=== PATIENT | male | born 1945 | race Caucasian/White ===

== ENCOUNTER 2018-02-27 05:11 | Emergency (ER) | payer OTHER, SELFPAY ==
[2018-02-27 05:11] VITALS: BP 181/110; PULSE 113; RESP 16; TEMP 36.5; O2SAT 95; BMI 34.6
[2018-02-27 05:26] LABS: Bedside Glucose 137 mg/dL (70-110)
--- NOTE | 2018-02-27 05:32 | CT_ITS ---
STUDY: CT BRAIN WITHOUT CONTRAST REASON FOR EXAM: Male, 72 years old. Headache for 4 days. RADIATION DOSAGE (If Supplied By Facility): CTDIvol = ( 44.99 ) mGy, DLP = ( 796.11 ) mGycm TECHNIQUE: Transaxial CT imaging of the brain was performed without administration of intravenous contrast material. Individualized dose optimization techniques were used for this CT. COMPARISON: None. FINDINGS: Normal soft tissue structures. Normal calvarium. There is a 1.2 cm extra-axial calcification arising along the inner table of the left posterior parietal calvarium, possibly representing a meningioma. There is no associated mass effect on underlying brain. There is mild cerebral atrophy with widening of the extra-axial spaces and ventricular dilatation. There are areas of decreased attenuation within the white matter tracts of the supratentorial brain, consistent with microvascular disease changes. Normal basal ganglia and thalami. Normal brainstem. Normal cerebellum. There is atherosclerotic calcification of the vertebral and cavernous carotid arteries. There is no intracranial hemorrhage. There are no findings of an acute ischemic infarction. There are polyps or retention cysts in the maxillary sinuses bilaterally as well as mild mucosal osteal thickening, consistent with chronic disease. There is no evidence for acute sinusitis. CT/Brain/Head without Contrast IMPRESSION: Chronic involutional changes of the brain. No demonstrated acute intracranial process. 1.2 cm densely calcified meningioma in the high left posterior parietal region, with no mass effect on the underlying brain. Would suggest a follow-up exam in one year to confirm stability. Electronically Signed: Zach Alcala MD at 6:55 EST , Service support ,
--- NOTE | 2018-02-27 05:34 | RAD_ITS ---
STUDY: X-RAY CHEST REASON FOR EXAM: Male, 72 years old. Shortness of breath. Dyspnea. TECHNIQUE: Frontal and lateral views of the chest. COMPARISON: 05/21/2015. FINDINGS: The lungs are clear and expanded. There is no demonstrated pleural abnormality. There is a calcification underlying the inferior aspect of the heart on AP view and also seen to extend over the anterior aspect of the heart on lateral view. This probably represents a pericardial calcification. Finding is also seen on previous exam. Normal size heart. Normal mediastinum and ruthy. Normal visualized pulmonary arteries. There is atherosclerotic calcification of the aortic arch with tortuosity. There are mild degenerative changes of the visualized thoracic spine. Normal visualized ribs, clavicles, and shoulders. There is no demonstrated abnormality of the visualized soft tissue structures of the upper abdomen. RAD/Chest PA and Lateral IMPRESSION: No evidence for acute cardiopulmonary pathology. Electronically Signed: Zach Alcala MD at 6:58 EST , Service support ,
--- NOTE | 2018-02-27 05:38 | ED.DCSUM_ITS ---
History of Present Illness Chief Complaint: Headache Informant: Patient Onset: Days - 4 Context: Sudden Onset Timing: Continuous Quality: sharp initially. now aching. Location: left temporo-parietal initially. now global. Current Severity: Severe Maximum Severity: Severe Worsened by: light, a little Relieved by: nothing Associated Symptoms: nausea, malaise. no focal neurological complaints. Narrative: States he had a sudden onset sharp left parietal headache 4 days ago that has persisted and worsened, now it feels painful all over. Very nauseated but has not vomited. No confusion or focal neurologic symptoms. Does not usually get headaches. Takes no anticoagulant or antiplatelet medications. No recent injury or trauma, no recent illnesses. Mild light sensitivity with this. Pt states he is having difficulty answering questions due to his headache. Prior similar symptoms: No - Past Medical History (1) Diabetes mellitus, type II Status: Chronic (2) Gastroesophageal reflux disease Status: Chronic (3) Hyperlipidemia Status: Chronic (4) Hypertension Status: Chronic Past Medical History - Allergies and Home Meds Allergies/Adverse Reactions: Allergies No Known Allergies Allergy (Verified 02/27/18 05:13) Primary Care Physician: Care Physician,No Primary [NON-STAFF] - Smoking Status: Never smoker Review of Systems General: Reports: Malaise. Denies: Chills, Fever, Sweats Eyes: Denies: Visual changes - bilaterally, Blurred Vision - bilaterally, Diplopia ENT: Denies: Bilateral ear pain, Rhinorrhea, Sore throat Cardiovascular: Denies: Chest pain, Palpitations Respiratory: Reports: Dyspnea. Denies: Cough, Dyspnea on exertion Gastrointestinal: Reports: Nausea. Denies: Abdominal pain, Vomiting, Diarrhea, Melena, Hematochezia Genitourinary: Reports: Frequency. Denies: Dysuria, Hematuria Musculoskeletal: Reports: Neck pain. Denies: Back pain, Swelling, Extremity Pain Skin: Denies: Rash Neurological: Reports: Headache. Denies: Weakness, Parasthesia, Numbness Allergy: Denies: Swelling of the mouth, Swelling of the tongue Physical Exam Vital Signs/Narrative: Vital Signs Temp Pulse Resp BP Pulse Ox 02/27/18 05:11 97.7 F L 113 H 16 181/110 H 95 Inital Vital Signs reviewed: Yes General: Well nourished, Well developed, - - well-appearing, nad Head: Normocephalic, Atraumatic Eyes: Perrl, EOMI, - - mild photophobia ENT: Moist mucous membranes, No rhinorrhea Neck: Supple, Nontender, No lymphadenopathy Cardiovascular: Regular rate, Regular rhythm, No murmurs, Tachycardia - mild Respiratory: No distress, CTA bilaterally, Chest nontender Abdomen: Soft, Nontender, Nondistended, Normal bowel sounds Back: Nontender, Normal Inspection. Negative for: Spinal tenderness Extremities: Nontender, No edema Skin: Normal color, No rash Neurological: Alert, Oriented x3, Cranial nerves II-XII grossly intact, Normal Strength, Normal Sensation, Normal DTR Psychological: Normal affect Diagnostic/Tx/Re-eval Laboratory Tests 02/27/18 02/27/18 02/27/18 Range/Units 05:20 05:15 05:15 WBC 7.4 (4.4-11.0) K/mm3 RBC 4.65 (4.6-6.2) M/mm3 Hgb 14.2 (13.0-16.5) g/dl Hct 43.5 (40-54) % MCV 93.5 (80-94) fL MCH 30.5 (27.0-32.0) pg MCHC 32.6 (32-36) g/gl RDW 14.4 (11.6-14.6) % RDW Differential 49.1 H (35.1-43.9) fl Plt Count 237 (150-450) K/mm3 MPV 11.1 (6.2-12.0) fl Immature Gran % (Auto) 0.400 (0.0-0.9) % Neut % (Auto) 66.8 (47-70) % Lymph % (Auto) 14.8 L (19-41) % [place] % (Auto) 11.4 H (0-10) % Eos % (Auto) 5.8 H (0-5) % Baso % (Auto) 0.8 (0-1) % Absolute Neuts (auto) 4.9 (2.0-7.7) X10^3/uL Absolute Lymphs (auto) 1.09 (0.83-4.51) X10^3/ul Total Counted Not Reportable Sodium 144 (136-145) mmol/L Potassium 4.1 (3.5-5.1) mmol/L Chloride 109 H (98-107) mmol/L Carbon Dioxide 23.0 (21.0-32.0) mmol/L Anion Gap 12 (5-15) BUN 20 H (7-18) mg/dL Creatinine 1.45 H (0.70-1.30) mg/dL Estim Creat Clear Calc 49.77 ml/min Est GFR (MDRD) Af Amer 62 (>60) mL/min Est GFR (MDRD) Non-Af 51 L (>60) mL/min BUN/Creatinine Ratio 13.8 (10-20) RATIO Glucose 144 H (74-106) mg/dL Calcium 8.9 (8.5-10.1) mg/dL Troponin I < 0.015 (<0.045) ng/mL POC Glucose 137 H (70-110) mg/dL Clinical Impression(s) from Imaging Studies Brain CT 02/27/18 05:32 IMPRESSION: Chronic involutional changes of the brain. No demonstrated acute intracranial process. 1.2 cm densely calcified meningioma in the high left posterior parietal region, with no mass effect on the underlying brain. Would suggest a follow-up exam in one year to confirm stability. Electronically Signed: Zach Alcala MD at 6:55 EST , Service support , Chest X-Ray 02/27/18 05:34 IMPRESSION: No evidence for acute cardiopulmonary pathology. Electronically Signed: Zach Alcala MD at 6:58 EST , Service support , - Medical Decision Making Labs show mild renal insufficiency compared with the labs that were obtained 2 years prior, and are otherwise unremarkable. CT shows no acute hemorrhage or other acute abnormality. His blood pressure was quite high, so we treated him with labetalol in addition to a dose of Reglan for the headache/nausea. On reevaluation, his headache is much improved, still present but mild, he is still nauseated, and his blood pressure is 148/84. He is additionally given Zofran. He appears well. I think his dyspnea was experienced when his headache was more uncomfortable, I do not think he needs further workup at this time for that. On further discussion, he states he has had intermittent left-sided sharp headaches in the past, but they usually only last 3 minutes or so. This was similar when it started but it was unusual in that it persisted for the last several days. He also states that he is on lisinopril 40 mg daily for blood pressure, and used to be on amlodipine, but it was causing swelling, and it was discontinued about 6 weeks ago, and since then his bilateral lower extremity edema has resolved. He states that his blood pressure was well controlled on the combination, but since discontinuing the amlodipine, he has been having issues with high numbers but he does not remember what the systolic has been. Given his reaction to calcium channel blockers, I think it would be reasonable to place him on low- dose metoprolol and have him follow-up with his doctor. We discussed the presence of the left high parietal 1.2 cm meningioma that should be reevaluated with repeat imaging in a year or so according to radiologist's advice. It is possible this has been responsible for or related to his recurrent headaches. Advised to follow-up with his doctor, I think he is stable for discharge and he is comfortable with this plan. ED Disposition - Plan for ED Patient: Disposition: Home or Assisted Living Chief Complaint: Headache Diagnosis: Cephalgia, Accelerated hypertension, Cerebral meningioma Instructions: ED Cephalgia Unspecified Prescriptions: Atenolol [Tenormin] 25 mg PO BID #60 tab Referrals: Allen Morrison [Other] (call for follow up appt) Additional Instructions: Your CT showed a 1.2 cm densely calcified meningioma in the high left parietal area of your brain. Follow-up with your doctor for further ref errals/instructions/re-imaging.
[2018-02-27 05:42] LABS: Absolute Lymphocyte Count 1.09 X10^3/ul (0.83-4.51); Absolute Neutrophil Count 4.9 X10^3/uL (2.0-7.7); Basophil# 0.06 X10^3/uL; Basophil% 0.8 % (0-1); Eosinophil# 0.43 X10^3/uL; Eosinophils% 5.8 % (0-5); Hematocrit 43.5 % (40-54); Hemoglobin 14.2 g/dl (13.0-16.5); Lymphocyte # 1.09 X10^3/ul (4.0); Lymphocyte % 14.8 % (19-41); Mean Corp Hgb Conc 32.6 g/gl (32-36); Mean Corpuscular Hgb 30.5 pg (27.0-32.0); Mean Corpuscular Volume 93.5 fL (80-94); Mean Platelet Vol. 11.1 fl (6.2-12.0); Monocyte# 0.84 X10^3/uL; Monocyte% 11.4 % (0-10); Neutrophil # 4.92 X10^3/uL (2.7-7.7); Neutrophil % 66.8 % (47-70); Platelet Count 237 K/mm3 (150-450); RBC Distribution Width CV 14.4 % (11.6-14.6); RBC Distribution Width SD 49.1 fl (35.1-43.9); Red Blood Count 4.65 M/mm3 (4.6-6.2); White Blood Count 7.4 K/mm3 (4.4-11.0)
[2018-02-27 05:43] LABS: POSITIVE COUNT NO; POSITIVE DIFFERENTIAL NO; POSITIVE MORPHOLOGY NO
[2018-02-27 05:52] LABS: Anion Gap 12 (5-15); BUN 20 mg/dL (7-18); BUN/Creat Ratio 13.8 RATIO (10-20); Calcium,Total 8.9 mg/dL (8.5-10.1); Chloride 109 mmol/L (98-107); Creatinine, Serum 1.45 mg/dL (0.70-1.30); EST Glomerular Filtration Rate 51 mL/min (>60); Est Glom Filt Rate - Afr Amer 62 mL/min (>60); Estimated Creatinine Clearance 49.77 ml/min; Glucose 144 mg/dL (74-106); Potassium 4.1 mmol/L (3.5-5.1); Sodium Level 144 mmol/L (136-145)
[2018-02-27] MEDS: Labetalol 20 MG/4 ML Vial 10 MG IV (06:21)
[2018-02-27] MEDS: Metoclopramide 10 MG/2 ML Vial 5 MG IV (06:21)
[2018-02-27 06:38] LABS: Bacteria 0 SEEN /hpf (None Seen); Mucous, Urine 0 SEEN /hpf (<or=2+); Red Blood Cells-Urine 0 SEEN /hpf (0-5); Squamous Epithelial Cells - UA 0 SEEN /hpf (0-5); White Blood Cells 0 SEEN /hpf (0-5)
[2018-02-27 06:59] VITALS: BP 148/84; PULSE 89; RESP 20; O2SAT 93
--- NOTE | 2018-02-27 07:00 | NURSING ---
physician notified of pt having headache and nausea that is mild. also notified of pt feeling slightly btter with a better bp.
[2018-02-27] MEDS: Ondansetron 4 MG/2 ML Vial IV (07:05)
[2018-02-27 07:17] LABS: Color, Urine Yellow (Yellow); Glucose, Dipstick Normal (Normal); Ketone-Dipstick Negative (Negative); Leukocyte Esterase-Dipstick Negative /ul (Negative); Nitrite-Dipstick Negative (Negative); Occult Blood-Urine Negative /ul (Negative); Protein-Dipstick Negative (Negative); Specific Gravity, Urine 1.015 (1.002-1.030); Urine Bilirubin Dipstick Negative (Negative); Urine Clarity Clear (Clear); Urine Urobilinogen Normal (Normal)
[2018-02-27 07:59] VITALS: BP 146/81; PULSE 92; RESP 20; O2SAT 93
--- OUTSIDE RECORDS SUMMARY | 2018-04-22 03:44 | XMS RPT_ITS ---
:1945 Author Organization OHIP Care Team Providers Name Role Phone Allen Morrison Attending Unavailable Allen Morrison Referring Unavailable Allen Morrison Primary Care Unavailable Elenita Guerin Attending Unavailable Allen Morrison Referring Unavailable Allen Morrison Primary Care Unavailable Elenita Guerin Attending Unavailable Allen Morrison Referring Unavailable Allen Morrison Primary Care Unavailable ODESSA CUELLAR Attending Unavailable Allen Morrison Primary Care Unavailable PROBLEMS PROBLEMS DATE TYPE CONDITION / CODE ATTENDING STATUS SOURCE 10/17/2017 Admitting Hyperlipidemia, Truong Elenita [employer] Diagnosis unspecified / [facility] E78.5(ICD-10) Repository 10/17/2017 Admitting Anemia, unspecified Elenita Guerin [employer] Diagnosis / D64.9(ICD-10) [facility] Repository 10/17/2017 Admitting Hypothyroidism, Elenita Guerin [employer] Diagnosis unspecified / [facility] E03.9(ICD-10) Repository 10/17/2017 Admitting Type 2 diabetes Elenita Guerin [employer] Diagnosis mellitus without [facility] complications / Repository E11.9(ICD-10) 09/16/2017 Admitting Pain in right knee Elenita Guerin [employer] Diagnosis / M25.561(ICD-10) [facility] Repository 09/16/2017 Admitting Oth disrd of bone Elenita Guerin [employer] Diagnosis density and [facility] structure, Repository unspecified site / M85.80(ICD-10) 04/04/2017 Admitting Type 2 diabetes Allen Morrison [employer] Diagnosis mellitus with other System specified Repository complication / E11.69(ICD-10) 04/04/2017 Admitting Essential (primary) Allen Morrison [employer] Diagnosis hypertension / System I10(ICD-10) Repository 04/04/2017 Admitting Other malaise / Allen Morrison [employer] Diagnosis R53.81(ICD-10) System Repository 04/04/2017 Admitting Benign prostatic Allen Morrison [employer] Diagnosis hyperplasia without System lower urinry tract Repository symp / N40.0(ICD-10) PROCEDURES PROCEDURES No Procedure Records FoundRESULTS RESULTS EMERGENCY DEPARTMENT Observed: 02/27/2018 Status: F Source: [place] SUMMARY 7:27 AM [facility] REPOSITORY [facility] Medical Records Department [address] [place] [address] Emergency Department Summary 02/27/18 0534 MR#: [id number] Acct: [id number] Name: ELENITA MARCANO Rep #: [id number] : 1945 72 From: Odessa Cuellar MD PCP: Allen Morrison Status: REG ER ADDENDUM by ODESSA CUELLAR MD on 02/27/18 at 0727 Urinalysis normal. 02/27/18 0727 Date Odessa Cuellar MD cc: Allen Morrison * Signed History of Present Illness Chief Complaint: Headache Informant: Patient Onset: Days - 4 Context: Sudden Onset Timing: Continuous Quality: sharp initially. now aching. Location: left temporo-parietal initially. now global. Current Severity: Severe Maximum Severity: Severe Worsened by: light, a little Relieved by: nothing Associated Symptoms: nausea, malaise. no focal neurological complaints. Narrative: States he had a sudden onset sharp left parietal headache 4 days ago that has persisted and worsened, now it feels painful all over. Very nauseated but has not vomited. No confusion or focal neurologic symptoms. Does not usually get headaches. Takes no anticoagulant or antiplatelet medications. No recent injury or trauma, no recent illnesses. Mild light sensitivity with this. Pt states he is having difficulty answering questions due to his headache. Prior similar symptoms: No - Past Medical History (1) Diabetes mellitus, type II Status: Chronic (2) Gastroesophageal reflux disease Status: Chronic (3) Hyperlipidemia Status: Chronic (4) Hypertension Status: Chronic Past Medical History - Allergies and Home Meds Allergies/Adverse Reactions: Allergies No Known Allergies Allergy (Verified 02/27/18 05:13) Primary Care Physician: Care Physician,No Primary [NON-STAFF] - Smoking Status: Never smoker Review of Systems General: Reports: Malaise. Denies: Chills, Fever, Sweats Eyes: Denies: Visual changes - bilaterally, Blurred Vision - bilaterally, Diplopia ENT: Denies: Bilateral ear pain, Rhinorrhea, Sore throat Cardiovascular: Denies: Chest pain, Palpitations Respiratory: Reports: Dyspnea. Denies: Cough, Dyspnea on exertion Gastrointestinal: Reports: Nausea. Denies: Abdominal pain, Vomiting, Diarrhea, Melena, Hematochezia Genitourinary: Reports: Frequency. Denies: Dysuria, Hematuria Musculoskeletal: Reports: Neck pain. Denies: Back pain, Swelling, Extremity Pain Skin: Denies: Rash Neurological: Reports: Headache. Denies: Weakness, Parasthesia, Numbness Allergy: Denies: Swelling of the mouth, Swelling of the tongue Physical Exam Vital Signs/Narrative: Vital Signs 02/27/18 05:11 97.7 F L 113 H 16 181/110 H 95 Inital Vital Signs reviewed: Yes General: Well nourished, Well developed, - - well-appearing, nad Head: Normocephalic, Atraumatic Eyes: Perrl, EOMI, - - mild photophobia ENT: Moist mucous membranes, No rhinorrhea Neck: Supple, Nontender, No lymphadenopathy Cardiovascular: Regular rate, Regular rhythm, No murmurs, Tachycardia - mild Respiratory: No distress, CTA bilaterally, Chest nontender Abdomen: Soft, Nontender, Nondistended, Normal bowel sounds Back: Nontender, Normal Inspection. Negative for: Spinal tenderness Extremities: Nontender, No edema Skin: Normal color, No rash Neurological: Alert, Oriented x3, Cranial nerves II-XII grossly intact, Normal Strength, Normal Sensation, Normal DTR Psychological: Normal affect Diagnostic/Tx/Re-eval Laboratory Tests WBC 7.4 (4.4-11.0) K/mm3 RBC 4.65 (4.6-6.2) M/mm3 Hgb 14.2 (13.0-16.5) g/dl Hct 43.5 (40-54) % Clinical Impression(s) from Imaging Studies Brain CT 02/27/18 05:32 IMPRESSION: Chronic involutional changes of the brain. No demonstrated acute intracranial process. 1.2 cm densely calcified meningioma in the high left posterior parietal region, with no mass effect on the underlying brain. Would suggest a follow-up exam in one year to confirm stability. Electronically Signed: Zach Alcala MD at 6:55 EST , Service support , Chest X-Ray 02/27/18 05:34 IMPRESSION: No evidence for acute cardiopulmonary pathology. Electronically Signed: Zach Alcala MD at 6:58 EST , Service support , - Medical Decision Making Labs show mild renal insufficiency compared with the labs that were obtained 2 years prior, and are otherwise unremarkable. CT shows no acute hemorrhage or other acute abnormality. His blood pressure was quite high, so we treated him with labetalol in addition to a dose of Reglan for the headache/nausea. On reevaluation, his headache is much improved, still present but mild, he is still nauseated, and his blood pressure is 148/84. He is additionally given Zofran. He appears well. I think his dyspnea was experienced when his headache was more uncomfortable, I do not think he needs further workup at this time for that. On further discussion, he states he has had intermittent left-sided sharp headaches in the past, but they usually only last 3 minutes or so. This was similar when it started but it was unusual in that it persisted for the last several days. He also states that he is on lisinopril 40 mg daily for blood pressure, and used to be on amlodipine, but it was causing swelling, and it was discontinued about 6 weeks ago, and since then his bilateral lower extremity edema has resolved. He states that his blood pressure was well controlled on the combination, but since discontinuing the amlodipine, he has been having issues with high numbers but he does not remember what the systolic has been. Given his reaction to calcium channel blockers, I think it would be reasonable to place him on low-dose metoprolol and have him follow-up with his doctor. We discussed the presence of the left high parietal 1.2 cm meningioma that should be reevaluated with repeat imaging in a year or so according to radiologist's advice. It is possible this has been responsible for or related to his recurrent headaches. Advised to follow-up with his doctor, I think he is stable for discharge and he is comfortable with this plan. ED Disposition - Plan for ED Patient: Disposition: Home or Assisted Living Chief Complaint: Headache Diagnosis: Cephalgia, Accelerated hypertension, Cerebral meningioma Instructions: ED Cephalgia Unspecified Prescriptions: Atenolol [Tenormin] 25 mg PO BID #60 tab Referrals: Allen Morrison [Other] (call for follow up appt) Additional Instructions: Your CT showed a 1.2 cm densely calcified meningioma in the high left parietal area of your brain. Follow-up with your doctor for further referrals/instructions/re-imaging. What to do if you have Problems For any increased pain, shortness of breath, bleeding, nausea or vomiting, chest pain, or any unexpected problems, contact your Primary Care Provider. Call [facility] ([phone]) or report to the closest Emergency Room. Call 911 if necessary. 02/27/18 0726 <Electronically signed by Odessa Cuellar MD> Date Odessa Cuellar MD Cosigner Signature (If Indicated): Date CC: Allen Morrison URINALYSIS, COMPLETE Collected: 02/27/2018 Status: F Source: [place] 6:20 AM [facility] REPOSITORY Order Comment: Order Date: 02/27/18 Has pt arrived? Y How was Urine Obtained? CLEAN CATCH TYPE CODE TESTS RESULT OUT OF RANGE REFERENCE UNITS LAB L400.3000 Yellow COLOR Normal Yellow LAB L400.3050 Clear Normal CLARITY Clear LAB L400.3200 Normal mg/dl Normal GLUCOSE, UR Normal LAB L400.3300 Negative mg/dL Normal BILIRUBIN URINE Negative LAB L400.3400 Negative mg/dl Normal KETONE UR Negative LAB L400.3465 1.002-1.030 Normal SP.GR. DIPSTX 1.015 LAB L400.3550 5.0 - 8.0 pH UR Normal 6.0 LAB L400.3600 Negative mg/dl PROT Normal DIPSTX Negative LAB L400.3700 Normal mg/dl Normal UROBILI Normal LAB L400.3750 Negative Normal NITRITE UR Negative LAB L400.3780 Negative /ul Normal OCCULT BLOOD-UR Negative LAB L400.3800 Negative /ul LEUK Normal ESTERASE Negative LAB L400.4050 0-5 /hpf WBC 0 Normal SEEN LAB L400.4100 0-5 /hpf 0 Normal RBC-UA SEEN LAB L400.4150 0-5 /hpf SQUAM 0 Normal EPI SEEN LAB L400.4300 None Seen /hpf 0 Normal BACTERIA SEEN LAB L400.4350 <or=2+ /hpf 0 Normal MUCUS, URINE SEEN Performed By: #### L400.0001 #### [facility] [address] [facility], [address] CHEST PA AND LATERAL Observed: 02/27/2018 Status: F Source: [place] 5:34 AM [facility] REPOSITORY [facility] Imaging Services [address] [place] [address] Chest PA and Lateral MR#: [id number] Acct: [id number] Name: ELENITA MARCANO Rep #: [id number] : 1945 M 72 From: Zach Alcala MD PCP: Allen Morrison Status: REG ER Study: Chest PA and Lateral Date of Exam: 02/27/18 Exam# [id number] Ordering Dr: Odessa Cuellar MD STUDY: X-RAY CHEST REASON FOR EXAM: Male, 72 years old. Shortness of breath. Dyspnea. TECHNIQUE: Frontal and lateral views of the chest. COMPARISON: 05/21/2015. FINDINGS: The lungs are clear and expanded. There is no demonstrated pleural abnormality. There is a calcification underlying the inferior aspect of the heart on AP view and also seen to extend over the anterior aspect of the heart on lateral view. This probably represents a pericardial calcification. Finding is also seen on previous exam. Normal size heart. Normal mediastinum and ruthy. Normal visualized pulmonary arteries. There is atherosclerotic calcification of the aortic arch with tortuosity. There are mild degenerative changes of the visualized thoracic spine. Normal visualized ribs, clavicles, and shoulders. There is no demonstrated abnormality of the visualized soft tissue structures of the upper abdomen. RAD/Chest PA and Lateral IMPRESSION: No evidence for acute cardiopulmonary pathology. Electronically Signed: Zach Alcala MD at 6:58 EST , Service support , CC: ODESSA CUELLAR MD; Allen Morrison [employer]ic: Signed BRAIN/HEAD WITHOUT Observed: 02/27/2018 Status: F Source: [place] CONTRAST 5:33 AM [facility] REPOSITORY [facility] Imaging Services [address] [place] [address] Brain/Head without Contrast MR#: [id number] Acct: [id number] Name: ELENITA MARCANO Rep #: [id number] : 1945 M 72 From: Zach Alcala MD PCP: Allen Morrison Status: REG ER Study: Brain/Head without Contrast Date of Exam: 02/27/18 Exam# [id number] Ordering Dr: Odessa Cuellar MD STUDY: CT BRAIN WITHOUT CONTRAST REASON FOR EXAM: Male, 72 years old. Headache for 4 days. RADIATION DOSAGE (If Supplied By Facility): CTDIvol = ( 44.99 ) mGy, DLP = ( 796.11 ) mGycm TECHNIQUE: Transaxial CT imaging of the brain was performed without administration of intravenous contrast material. Individualized dose optimization techniques were used for this CT. COMPARISON: None. FINDINGS: Normal soft tissue structures. Normal calvarium. There is a 1.2 cm extra-axial calcification arising along the inner table of the left posterior parietal calvarium, possibly representing a meningioma. There is no associated mass effect on underlying brain. There is mild cerebral atrophy with widening of the extra- axial spaces and ventricular dilatation. There are areas of decreased attenuation within the white matter tracts of the supratentorial brain, consistent with microvascular disease changes. Normal basal ganglia and thalami. Normal brainstem. Normal cerebellum. There is atherosclerotic calcification of the vertebral and cavernous carotid arteries. There is no intracranial hemorrhage. There are no findings of an acute ischemic infarction. There are polyps or retention cysts in the maxillary sinuses bilaterally as well as mild mucosal osteal thickening, consistent with chronic disease. There is no evidence for acute sinusitis. CT/Brain/Head without Contrast IMPRESSION: Chronic involutional changes of the brain. No demonstrated acute intracranial process. 1.2 cm densely calcified meningioma in the high left posterior parietal region, with no mass effect on the underlying brain. Would suggest a follow-up exam in one year to confirm stability. Electronically Signed: Zach Alcala MD at 6:55 EST , Service support , CC: ODESSA CUELLAR MD; Allen Morrison [employer]ic: Signed BEDSIDE GLUCOSE Collected: 02/27/2018 Status: F Source: [place] 5:20 AM [facility] REPOSITORY TYPE CODE TESTS RESULT OUT OF REFERENCE UNITS RANGE LAB L501.080 70-110 mg/dL High BEDSIDE GLU 137 Result Comment: MANAGEMENT OF PATIENT CARE PER NURSING PROTOCOL Performed By: #### L501.080 #### [facility] Point of Care [address] [place] [address] CBC W/DIFF, AUTOMATED Collected: 02/27/2018 Status: F Source: [place] 5:15 AM [facility] REPOSITORY TYPE CODE TESTS RESULT OUT OF RANGE REFERENCE UNITS LAB L100.1000 4.4-11.0 K/mm3 Normal WBC 7.4 LAB L100.1200 4.6-6.2 M/mm3 Normal RBC 4.65 LAB L100.1300 13.0-16.5 g/dl Normal HGB 14.2 LAB L100.1400 40-54 % Normal HCT 43.5 LAB L100.1500 80-94 fL Normal MCV 93.5 LAB L100.1600 27.0-32.0 pg Normal MCH 30.5 LAB L100.1700 32-36 g/gl Normal MCHC 32.6 LAB L100.1810 11.6-14.6 % Normal RDW CV 14.4 LAB L100.1820 35.1-43.9 fl High RDW SD 49.1 LAB L100.1900 150-450 K/mm3 Normal PLT 237 LAB L100.2000 6.2-12.0 fl Normal MPV 11.1 LAB L100.2100 47-70 % Normal NEUT% 66.8 LAB L100.2200 19-41 % Low LY% 14.8 LAB L100.2300 0-10 % High MONO% 11.4 LAB L100.2400 0-5 % High EO% 5.8 LAB L100.2500 0-1 % Normal BASO% 0.8 LAB L100.2550 0.0-0.9 % Normal IM GRAN % 0.400 Result Comment: IG% - Immature Granulocytes (promyelocytes, myelocytes and metamyelocytes) > 1% indicates that a LEFT SHIFT is Present. LAB L100.2620 2.0-7.7 X10 3/uL Normal Absolute Neut 4.9 LAB L100.2720 0.83-4.51 X10 3/ul Normal Absolute Lymph 1.09 Performed By: #### L100.0100 #### [facility] [address] [place], [place], [address] BASIC METABOLIC Collected: 02/27/2018 Status: F Source: [place] PROFILE (BMP) 5:15 AM [facility] REPOSITORY TYPE CODE TESTS RESULT OUT OF RANGE REFERENCE UNITS LAB L501.0100 74-106 mg/dL High GLU 144 Result Comment: Fasting Glucose result greater than or equal to 126 mg/dL suggests DIABETES MELLITUS per A.D.A. criteria. Please note revised GLUCOSE reference range effective 2017. LAB L501.1000 7-18 mg/dL High BUN 20 LAB L501.1100 0.70-1.30 mg/dL High CREAT,SERUM 1.45 Result Comment: The validity of the calculated GFR AND GFRAA in patients over 70 years has not been determined. Clinical correlation is essential. LAB L501.1110 >60 mL/min Low EST GFR 51 Result Comment: Non- GFR Calc LAB L501.1115 >60 mL/min Normal EST GFR - AA 62 Result Comment: GFR Calc LAB L501.1255 ml/min Normal Estimated CRCL 49.77 LAB L501.1300 10-20 RATIO Normal BUN/CRE 13.8 LAB L501.2200 8.5-10 mg/dL Normal .1 CA 8.9 LAB L501.5300 136-14 mmol/L Normal 5 NA 144 LAB L501.5600 3.5-5. mmol/L Normal 1 K 4.1 LAB L501.5900 98-107 mmol/L High CL 109 LAB L501.6100 21.0-3 mmol/L Normal 2.0 CO2 23.0 LAB L501.6200 5-15 Normal GAP 12 Performed By: #### L500.2500, L501.4010 #### [facility] [address] [place], [address] TROPONIN-I Collected: 02/27/2018 Status: F Source: [place] 5:15 AM [facility] REPOSITORY TYPE CODE TESTS RESULT OUT OF RANGE REFERENCE UNITS LAB L501.4010 <0.045 ng/mL Normal < 0.015 TROPONIN-I Result Comment: TROPONIN-I EXPECTED VALUES <0.045 Negative 0.045 - 0.590 Consistent with Cardiac Damage > OR = 0.600 Critical Value Not every elevated troponin is indicative of AK. These values should be used with clinical judgement in examining the patient's clinical picture for diagnosis. To establish a diagnosis of AK versus myocardial injury, there must be a demonstrated rise and/or fall in the troponin values, in addition to ischemic symptoms, EKG changes, new regional wall motion abnormality, and/or angiographical evidence. PLEASE NOTE: REFERENCE RANGES EDITED 17 Performed By: #### L500.2500, L501.4010 #### [facility] [address] [place], [address] HEMOGLOBIN A1C Collected: 10/17/2017 Status: F Source: [facility] 9:33 AM SYSTEM REPOSITORY TYPE CODE TESTS RESULT OUT OF REFERENCE UNITS RANGE LAB A1C2 4.0-5.7 % High Hemoglobin A1C 6.5 Result Comment: --HgbA1C levels may not be accurate in patients who have renal disease, received recent blood transfusions, are anemic, or who have dyshemoglobinemia. LAB EAG2 mg/dL Estimated Avg Glucose 140 Performed By: #### HA1C2, HEMDF, CMP3, LIPD2, LDLD3, TSH5 #### [facility] [address] [place] [address] HEMOGRAM W/ AUTODIFF Collected: 10/17/2017 Status: F Source: [facility] 9:33 AM SYSTEM REPOSITORY TYPE CODE TESTS RESULT OUT OF REFERENCE UNITS RANGE LAB IWBC 3.6-10.7 10*3/uL WBC Normal 7.6 LAB RBC 4.40-5.90 10*6/uL RBC Normal 4.62 LAB HGB 13.0-18.0 g/dL Hemoglobin Normal 14.6 LAB HCT 40.0-52.0 % Hematocrit Normal 43.1 LAB MCV 80.0-98.0 fL MCV Normal 93.3 LAB MCH 26.0-34.0 pg MCH Normal 31.7 LAB MCHC 32.0-36.0 % MCHC Normal 34.0 LAB RDW 11.5-14.5 % RDW Normal 14.2 LAB PLT 140-440 10*3/uL Platelet Normal 240 LAB MPV 7.4-10.4 fL MPV Normal 8.9 LAB GRAN% 40.0-80.0 % Granulocytes Normal 69.5 LAB LYMP% 20.0-40.0 % Low Lymphocytes 11.4 LAB MONO% 2.0-10.0 % Monocytes High 11.0 LAB EOS% 1.0-6.0 % Eosinophils High 6.8 LAB BAS% 0.0-2.0 % Basophils Normal 1.3 LAB ANC 1.8-7.0 10*3/uL Abs Normal Neutrophile Cnt 5.3 LAB ALC 1.0-4.3 10*3/uL Low Abs Lymph Cnt 0.9 LAB AMC 0.0-0.8 10*3/uL Abs Monocyte Normal Cnt 0.8 LAB AEC 0.0-0.5 10*3/uL Abs Eosin Cnt Normal 0.5 LAB ABC 0.0-0.2 10*3/uL Abs Baso Cnt Normal 0.1 Performed By: #### HA1C2, HEMDF, CMP3, LIPD2, LDLD3, TSH5 #### [facility] [address] [place] [address] COMP METABOLIC PANEL Collected: 10/17/2017 Status: F Source: [facility] 9:33 AM SYSTEM REPOSITORY TYPE CODE TESTS RESULT OUT OF RANGE REFERENCE UNITS LAB NA3 137-145 mmol/L Sodium Normal 141 LAB K3 3.5-5.1 mmol/L Normal Potassium 4.6 LAB CL3 98-107 mmol/L High Chloride 108 LAB CO23 22-30 mmol/L Low Carbon Dioxide 21 LAB ANIN3 NA Anion Gap 12 LAB GLUC3 70-100 mg/dL High Glucose 114 LAB BUN3 7-20 mg/dL Urea Normal Nitrogen 20 LAB CRET3 0.52-1.25 mg/dL Normal Creatinine 1.24 LAB GF3BR >60 mL/min eGFR > 60.0 LAB GF3WR >60 mL/min eGFR OTHER 57.4 Result Comment: Source- MDRD equation with creatinine calibration to IDMS(NKDEP) eGFR not recommended for drug dose adjustment LAB CA3 8.4-10.4 mg/dL Calcium Normal 9.5 LAB ALB3 3.5-5.0 g/dL Albumin, Serum Normal 4.0 LAB TP3 6.3-8.2 g/dL Total Protein Normal 6.6 LAB BILT3 0.2-1.3 mg/dL Normal Bilirubin,Total 0.6 LAB ALKP3 38-126 U/L Alkaline Normal Phosphatase 90 LAB ALT3 13-69 U/L ALT (SGPT) Normal 24 LAB AST3 15-46 U/L AST (SGOT) Normal 15 Performed By: #### HA1C2, HEMDF, CMP3, LIPD2, LDLD3, TSH5 #### [employer] [address] [place] [address] LIPID PANEL Collected: 10/17/2017 Status: F Source: [facility] 9:33 AM SYSTEM REPOSITORY TYPE CODE TESTS RESULT OUT OF REFERENCE UNITS RANGE LAB 3CHOL < 200 mg/dL Cholesterol Normal 127 LAB 3TRIG <150 mg/dL Triglyceride Normal 88 LAB HDLC 40-60 mg/dL HDL Normal Cholesterol 45 LAB LDL4 <100 mg/dL Low Density Normal Lipoprotein 64 LAB CHLHD NA Chol/HDL 3 Result Comment: Ref Range: < 3 Low Risk for CHD 3-6 Mod Risk for CHD > 6 High Risk for CHD Performed By: #### HA1C2, HEMDF, CMP3, LIPD2, LDLD3, TSH5 #### [employer] [address] [place] [address] LDL-CHOL, DIRECT Collected: 10/17/2017 Status: F Source: [facility] 9:33 AM SYSTEM REPOSITORY TYPE CODE TESTS RESULT OUT OF RANGE REFERENCE UNITS LAB 3LDLD < 100 mg/dL Normal 60 LDL-Chol,Dir ect Performed By: #### HA1C2, HEMDF, CMP3, LIPD2, LDLD3, TSH5 #### [facility] [address] [place] [address] THYROID STIM. Collected: 10/17/2017 Status: F Source: [facility] H[facility]ONE 9:33 AM SYSTEM REPOSITORY TYPE CODE TESTS RESULT OUT OF RANGE REFERENCE UNITS LAB TSH5 0.465-4.680 u[IU]/mL Normal Thyroid Stim. 3.878 Hormone Performed By: #### HA1C2, HEMDF, CMP3, LIPD2, LDLD3, TSH5 #### [facility] [address] [place] [place] [address] CR KNEE COMPLETE 4+ Observed: 09/16/2017 Status: F Source: [facility] VIEWS RIGHT 2:49 PM SYSTEM REPOSITORY Patient Name: ELENITA MARCANO Diagnostic Radiology Exam Date/Time 09/16/2017 08:42:34 EDT Exam CR Knee Complete 4+ Views Right Ordering Physician MD GUERIN LESLIE ANN Accession Number [id number] CPT4 Codes 59239 () Reason For Exam M25.561, ACUTE PAIN OF RIGHT KNEE Report CLINICAL INFORMATION: Right knee pain. AP, tunnel, lateral, and sunrise views of the right knee are provided. There are no comparison studies. FINDINGS: Mild degenerative changes are noted with medial joint space narrowing and spurring of the tibial spine. There is no evidence of fracture or dislocation. No joint effusion is seen. The bones are mildly osteopenic. IMPRESSION: 1. Mild degenerative changes. 2. No fracture or effusion. 3. Osteopenia, not unusual for patient age. Report Dictated on Workstation: [employer] Final Dictating Physician: MD SANDS JEFFREY Signed Date and Time: 09/16/2017 2:50 pm Signed by: MD SANDS JEFFREY Transcribed Date and Time: 09/16/2017 2:51 ALLERGIES ALLERGIES DATE TYPE / CODE NAME / CODE REACTION SEVERITY SOURCE 02/27/2018 [facility] [address]21(SNOMED [id number](RXNOR Repository CT) M) ENCOUNTERS ENCOUNTERS ADMIT/DISCHARGE ACCOUNT NUMBER ADMITTING ENCOUNTER LOCATION SOURCE CLASS 02/27/2018/02/28/20 [id number] Emergency Raquel [place] 18 [facility] ding:ED Repository 10/17/2017 [id number] Ambulatory [facility] Repository 09/16/2017 [id number] Ambulatory [facility] Repository 04/04/2017 [id number] [facility] Repository PAYERS PAYERS ENCOUNTER GUARANTOR PAYER SUBSCRIBER SOURCE 02/27/2018 Elenita D Primary Elenita D [facility] [id number] Insurance:[facility] GUSTAVO Solorzano [id number] [id number] [address]U[place]: Number: Repository [id number] () Date:1969-91-11[address], [place] [address]SP: 02/27/2018 Secondary NOT GIVENUNK [place] Insurance:SELF PAY [facility] Number: Effective Repository Date:2018-02-27 10/17/2017 Elenita D [facility] [id number] [facility] [id number] Repository Blake Jeanine, Number: Effective [place] [id number]: Date: () 09/16/2017 Elenita D Primary Elenita D [facility] HealthcarePolicy [id number] Repository Blake Solorzano, Number: Effective [place] [address]Kru: Date: () 04/04/2017 Elenita D Primary Elenita D [facility] hospitalOB: [facility] HealthcarePolicy [id number] Repository Blake Solorzano, Number: Effective [place] [id number]: Date: ()
== END 2018-02-27 08:04 | disposition home or self-care (01) ==
PROVIDERS: Emergency Provider Emergency Medicine; Family Provider Internal Medicine; PCP Internal Medicine
DX: R51 Headache (principal); D32.0 Benign neoplasm of cerebral meninges; I10 Essential (primary) hypertension; E11.9 Type 2 diabetes mellitus without complications; E78.5 Hyperlipidemia, unspecified; K21.9 Gastro-esophageal reflux disease without esophagitis; Z79.899 Other long term (current) drug therapy; Z79.84 Long term (current) use of oral hypoglycemic drugs; R11.0 Nausea; R06.00 Dyspnea, unspecified
CPT/HCPCS: 70450; 71046; 80048; 81001; 82962; 84484; 85025; 96374; 96375; 99283; A4216; J2405

== ENCOUNTER 2019-08-23 13:15 | Observation (INO) | payer MEDICARE, SELFPAY ==
[2019-08-23] VITALS (10 sets, daily range): BP systolic 122–154; BP diastolic 65–88; PULSE 62–78; RESP 15–20; TEMP 36.2–37; O2SAT 95–98; BMI 34.4; BMI 34.9
--- NOTE | 2019-08-23 13:30 | EKG12_ITS ---
Test Reason : Blood Pressure : / mmHG Vent. Rate : 070 BPM Atrial Rate : 070 BPM P-R Int : 190 ms QRS Dur : 072 ms QT Int : 432 ms P-R-T Axes : 003 071 -50 degrees QTc Int : 466 ms Normal sinus rhythm T wave abnormality, consider inferior ischemia Abnormal ECG Confirmed by SONAM CONTRERAS ([id number]), editor farm journal OCTAVIA GUTIERREZ ([id number]) on 08/27/2019 11:25:19 AM Referred By: Confirmed By:SONAM CONTRERAS
--- NOTE | 2019-08-23 13:31 | ED.VISSUMM ---
- ER Visit Summary Date of Service: 08/23/19 Chief Complaint: Shortness of breath History of Present Illness: The patient is a 74 M presenting with shortness of breath. He states this is worsened with exertion. It has been ongoing for the past several days but continues to worsen. He has had a cough since April which is a dry cough. He was seen by pulmonology on Tuesday and scheduled for testing later in August. He states he presented today because the shortness of breath continues to worsen. It worsens when he walks or lays flat. He has increasing lower extremity swelling. He is not on home O2. Denies fever. Denies chest pain. Denies PE/DVT risk factors. Denies other complaints. Physical Examination: Vitals are stable. Patient is afebrile. Alert no acute distress. HEENT exam is unremarkable. Neck is supple. Lungs are clear and equal bilaterally. Heart is regular rate and rhythm. Abdomen is soft nontender nondistended. Extremities symmetric edema Skin is warm and dry. No focal neurologic deficit. Remainder of exam is unremarkable. Emergency Department Course and Treatment: EKG is sinus rhythm rate of 70 with inferior lateral T wave inversion, unchanged from previous. Chest x-ray shows new small right pleural effusion with underlying atelectasis and/or infiltration. Stable linear calcification most likely pericardial in nature. CBC, chemistries are normal except BUN 25, creatinine 1.74. Troponin is negative. Patient was given Lasix IV. Discussed with the hospitalist for admission. Disposition: Admission Impression: CHF, right pleural effusion This note was generated with [employer] dictation software. It may contain incorrect words, spelling, and punctuation that were not noted in review of the chart prior to signing ED Disposition - Plan for ED Patient: Referrals: Allen Morrison MD [Primary Care Provider] -
--- NOTE | 2019-08-23 14:05 | RAD_ITS ---
STUDY: X-RAY CHEST REASON FOR EXAM: Male, 74 years old. PRODUCTIVE COUGH X 3 MONTHS, SOB X ONE MONTH -- HX COPD, EMPHYSEMA TECHNIQUE: Single AP portable view of the chest. COMPARISON: Comparison is made with prior examination dated February 27, 2018. FINDINGS: EKG electrodes are seen. There now is evidence of a small right pleural effusion with underlying basilar atelectasis and/or infiltrate. The left lung is clear. Once again, there is evidence of linear calcification along the inferior aspect of the cardiac silhouette. This may represent pericardial calcification. Normal mediastinum and ruthy. Normal visualized pulmonary arteries. There is atherosclerotic calcification of the aortic arch with tortuosity. There are degenerative changes of the visualized thoracic spine. Normal visualized ribs, clavicles, and shoulders. There is no demonstrated abnormality of the visualized soft tissue structures of the upper abdomen. RAD/Chest 1 View (Portable) IMPRESSION: New small right pleural effusion with underlying atelectasis and/or infiltration. Stable linear calcification most likely pericardial in nature. Electronically Signed: Shravan Dumas, at 14:27 EDT , Service support ,
[2019-08-23 14:08] LABS: Absolute Lymphocyte Count 0.59 X10^3/uL (0.83-4.51); Basophil# 0.05 X10^3/uL; Basophil% 0.7 % (0-1); Eosinophil# 0.23 X10^3/uL; Eosinophils% 3.4 % (0-5); Hemoglobin 13.1 g/dL (13.0-16.5); Lymphocyte # 0.59 X10^3/ul (4.0); Lymphocyte % 8.7 % (19-41); Mean Corpuscular Hgb 30.8 pg (27.0-32.0); Mean Corpuscular Volume 96.2 fL (80-94); Mean Platelet Vol. 11.5 fl (6.2-12.0); Monocyte# 0.88 X10^3/uL; NRBC Flagged by Analyzer 0 % (0-5); Neutrophil # 5.01 X10^3/uL (2.7-7.7); Neutrophil % 73.8 % (47-70); Platelet Count 251 K/mm3 (150-450); RBC Distribution Width CV 15.4 % (11.6-14.6); RBC Distribution Width SD 54.2 fl (35.1-43.9); Red Blood Count 4.26 M/mm3 (4.6-6.2); White Blood Count 6.8 K/mm3 (4.4-11.0)
--- NOTE | 2019-08-23 14:17 | NURSING ---
CHEMISTRIES HEMOLIZED
[2019-08-23 14:29] LABS: Differential Indicated SCAN CRITERIA MET
[2019-08-23 14:40] LABS: POSITIVE DIFFERENTIAL YES
[2019-08-23 14:49] LABS: Anion Gap 8 (5-15); BUN 25 mg/dL (7-18); BUN/Creat Ratio 14.4 RATIO (10-20); Calcium,Total 9.4 mg/dL (8.5-10.1); Chloride 112 mmol/L (98-107); Creatinine, Serum 1.74 mg/dL (0.70-1.30); EST Glomerular Filtration Rate 41 mL/min (>60); Est Glom Filt Rate - Afr Amer 50 mL/min (>60); Estimated Creatinine Clearance 40.27 ml/min; Glucose 108 mg/dL (74-106); Sodium Level 144 mmol/L (136-145)
--- NOTE | 2019-08-23 15:21 | NURSING ---
DR TAMICA PARSONS
--- NOTE | 2019-08-23 16:16 | NURSING ---
PCU OBS TERELETSKY CHF, PLEURAL EFFUSION
[2019-08-23] MEDS: Furosemide 40 MG/4 ML Vial IV (16:22)
--- NOTE | 2019-08-23 16:47 | HP.PCM_ITS ---
Problem List (1) CHF (congestive heart failure) Status: Acute (2) Diabetes mellitus, type II Status: Chronic (3) Gastroesophageal reflux disease Status: Chronic (4) Hyperlipidemia Status: Chronic (5) Hypertension Status: Chronic History of Present Illness Date of Admission: 08/23/19 Chief Complaint: SOB The patient is a 74 year old M with pmhx as above who presented to the ER with c/o SOB. This has been going on for about 2 months. He was seen by his PCP and had an xray showing a pleural effusion. After that he was sent to a manager of information, Dr. Lomeli and was scheduled for outpatient testing. He has not been given any medication for his breathing. About 2 weeks ago he had LE edema which has continued to worsen. He did not feel comfortably waiting any longer for treatment or work up for his SOB and came to the ER. He also has some chest pressure. He has severe LE edema and a CXR showing right pleural effusion. He denies a hx of CHF or CAD. He is SOB but has no hypoxia as he is 96% on RA. 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 [] Past Medical History Past Medical History (Chronic Problems): Chronic Problems Snoring (Chronic) Hyperlipidemia (Chronic) Diabetes mellitus, type II (Chronic) Family history of cardiovascular disease (Chronic) Hypertension (Chronic) Gastroesophageal reflux disease (Chronic) Cerumen impaction (Chronic) Allergies No Known Allergies Allergy (Verified 08/23/19 13:17) Home Medications: Ambulatory Orders Medication Instructions Recorded Pioglitazone [Actos] 30 mg PO DAILY 05/21/15 Simvastatin [Zocor] 20 mg PO QHS 05/21/15 metFORMIN HCl [Glucophage] 500 mg PO BID 05/21/15 Aspirin [Aspirin EC] 81 mg PO DAILY@0800 08/23/19 Atenolol [Tenormin] 25 mg PO BID 08/23/19 Cimetidine 400 mg PO BID 08/23/19 Furosemide [Lasix] 20 mg PO DAILY 08/23/19 Linagliptin [Tradjenta] 5 mg DAILY 08/23/19 Lisinopril 40 mg PO DAILY 08/23/19 Surgical History: herniorrhaphy - Abdominal ventral hernia with mesh Psychiatric History: No pertinent psych hx Lives: Spouse/ Significant Other Smoking Status: Never smoker Tobacco Use: Non-smoker Alcohol: Occasional Drugs: None - *Family History Maternal History Items: Heart Disease Paternal History Items: Heart Disease - Father had an AZ at 66 Sibling History Items: - - One brother who with an AZ at 48 and another brother who is from brain CA Review of Systems Constitutional: Denies: Chills, Fever, Weight Change, Fatigue HEENT: Denies: Head Aches, Sinus Congestion, Sinus Drainage Cardiovascular: Reports: Chest Pressure, Edema. Denies: Chest Pain, Palpitations Respiratory: Reports: Shortness of Breath, Shortness of breath at rest. Denies: Cough, Sputum production, Wheezing Gastrointestinal: Denies: Abdominal Pain, Nausea, Vomiting Genitourinary: Denies: Dysuria Musculoskeletal: Denies: Joint Pain, Joint Tenderness Skin: Denies: Lesions, Rash, Wounds Neurological: Denies: Numbness, Tingling, Focal weakness Psychiatric: Denies: Anxiety, Depression, Homicidal Ideations, Suicidal Ideations Hematologic/ Lymphatic: Denies: Easy Bruising, Easy Bleeding VTE Information - Inpt Only VTE Present on Admission: No VTE Mechan Device Prophylaxis: None VTE Pharm Prophylaxis ordered?: Yes Patient Problems: Active and Suspected Problems CHF (congestive heart failure) (Acute) - Physical Exam Vitals/I&O's: Vital Signs Temp Pulse Resp BP Pulse Ox 98.1 F 68 15 140/81 H 96 08/23/19 16:18 08/23/19 16:18 08/23/19 16:18 08/23/19 16:18 08/23/19 16:18 Oxygen Delivery Method Room Air Weight: 247 lb 2.211 oz Body Mass Index (BMI) 34.4 General: Alert, Oriented x3, Cooperative HEENT: Atraumatic, PERRLA, EOMI, Normocephalic Neck: Supple, No JVD, Negative Carotid Bruits Lungs: Clear to auscultation, Diminished - right side diminished Cardiovascular: Regular rate, No murmurs Abdomen: Bowel Sounds Present, Soft, Non Tender Extremities: No edema, Capillary Refill Less than 3 Seconds Skin: No rashes, No breakdown Musculoskeletal: No Tenderness to Palpation of Joints or Extremities Neurological: Cranial nerves II-XII grossly intact Psych/Mental Status: Normal Affect, Appropriate Laboratory Results 08/23/19 13:50: WBC 6.8, RBC 4.26 L, Hgb 13.1, Hct 41.0, MCV 96.2 H, MCH 30.8, MCHC 32.0, RDW Std Deviation 54.2 H, RDW Coeff of Ena 15.4 H, Plt Count 251, MPV 11.5, Immature Gran % (Auto) 0.400, Neut % (Auto) 73.8 H, Lymph % (Auto) 8.7 L, [place] % (Auto) 13.0 H, Eos % (Auto) 3.4, Baso % (Auto) 0.7, Absolute Neuts (auto) 5.0, Absolute Lymphs (auto) 0.59 L, Nucleated RBC % 0 08/23/19 13:50: Sodium Cancelled, Potassium Cancelled, Chloride Cancelled, Carbon Dioxide Cancelled, Anion Gap Cancelled, BUN Cancelled, Creatinine Cancelled, Estim Creat Clear Calc Cancelled, Est GFR (MDRD) Af Amer Cancelled, Est GFR (MDRD) Non-Af Cancelled, BUN/Creatinine Ratio Cancelled, Glucose Cancelled, Calcium Cancelled, Troponin I Cancelled 08/23/19 13:50: B-Natriuretic Peptide Pending 08/23/19 14:25: Sodium 144, Potassium 4.0, Chloride 112 H, Carbon Dioxide 24.0, Anion Gap 8, BUN 25 H, Creatinine 1.74 H, Estim Creat Clear Calc 40.27, Est GFR (MDRD) Af Amer 50 L, Est GFR (MDRD) Non-Af 41 L, BUN/Creatinine Ratio 14.4, Glucose 108 H, Calcium 9.4, Troponin I < 0.015 Assessment/Plan All Active Problems CHF (congestive heart failure) (Acute) Chest tightness (Acute) Sinus tachycardia (Acute) SOB (shortness of breath) (Acute) TMJ arthralgia (Acute) Nausea and vomiting in adult (Acute) 1. Acute CHF - no prior. IV lasix. MODESTO wrap legs, Na+ and fluid restriction, daily weights, I/Os. Obtain Echo. Trop neg. BNP pending. Right pleural effusion. Thoracentesis in AM. Pulm consult. CT chest no contrast post thoracentesis. EKG with some T wave flattening, SR. 2. Suspect CKDIII - trend BMP. 3. HTN - continue home meds 4. Dmt2 - hold orals. SSI. 5. HLD - continue Statin DVT ppx: heparin This patient was seen by Omar williamson PA-C under the supervision of Dr. Case.
[2019-08-23 17:51] LABS: BNP,B-Type NATRIURETIC PEPTIDE 289.5 pg/mL (0-100)
--- NOTE | 2019-08-23 18:13 | ECHOCS_ITS ---
Reason For Study: DYSPNEA Procedure This was a 2D Doppler, Color Flow transthoracic echocardiogram. The exam was of poor technical quality due to suboptimal acoustic windows. Contrast injection was performed. Exam performed portable in patient room. Left Ventricle Normal size and thickness. The estimated ejection fraction is 65 %. Stage 2 diastolic dysfunction. No regional wall motion abnormalities noted. Right Ventricle Mildly dilated right ventricle. Normal systolic function. Atria Normal left atrium. Normal right atrium. Normal atrial septum. Mitral Valve The mitral valve is structurally normal. No prolapse or stenosis seen. Tricuspid Valve Normal tricuspid valve. Trivial tricuspid valve insufficiency. Right ventricular systolic pressure estimated to be 22 mmHg. Aortic Valve Normal aortic valve. Trisinus/trileaflet aortic valve. Pulmonic Valve Normal pulmonic valve. Great Vessels Normal aortic root. Normal arch. The inferior vena cava is dilated. No collapse of the inferior vena cava. Pericardium/Pleural No pericardial effusion. Medication Diluted definity 5.0ml given slow IV push to enhance endocardial definition. MMode/2D Measurements & Calculations LVIDd: 4.8 cm IVSd: 1.0 cm Ao root diam: 4.2 cm LVIDs: 3.7 cm LVPWd: 0.98 cm RVDd: 3.7 cm FS: 23.6 % LAV(MOD-bp): 77.9 ml LA A4 area: 20.9 cm2 LA dimension(2D): 5.3 cm LAV(MOD-bp) Indexed: 34.4 ml/m2 LAV(MOD-sp2): 93.3 ml LAV(MOD-sp4): 61.6 ml RA A4 area: 20.1 cm2 Time Measurements MV dec time: 0.17 sec Doppler Measurements & Calculations MV E max cali: 102.4 cm/sec Lat Peak E' Cali: 5.6 cm/sec Med Peak E' Cali: 11.8 cm/sec MV A max cali: 53.3 cm/sec E/E' lat: 18.4 E/E' med: 8.7 MV E/A: 1.9 Ao V2 max: 92.8 cm/sec LV V1 max: 81.8 cm/sec PA V2 max: 81.7 cm/sec Ao max P.4 mmHg LV V1 max P.7 mmHg TR max cali: 208.6 cm/sec TR max P.4 mmHg Interpretation Summary The estimated ejection fraction is 65 %. Stage 2 diastolic dysfunction. Mildly dilated right ventricle. Trivial tricuspid valve insufficiency. Right ventricular systolic pressure estimated to be 22 mmHg. The inferior vena cava is dilated No collapse of the inferior vena cava. Compared to echo report dated 05/22/2015, no appreciable changes noted. Ordering Physician: Carlton Case Referring Physician: IAIN VIRK Performed By: Annette Billy, BENJY, RVT
[2019-08-23 18:26] LABS: Bedside Glucose 96 mg/dL (70-110)
[2019-08-23] MEDS: Glucerna Shake 120 ML LIQUID PO (18:35)
[2019-08-23] MEDS: Atorvastatin Calcium 10 MG Tablet PO (21:47)
[2019-08-23] MEDS: Furosemide 20 MG/2 ML VIAL IV (21:47)
[2019-08-23] MEDS: Atenolol 25 MG Tablet PO (21:48)
[2019-08-23 22:05] LABS: Bedside Glucose 132 mg/dL (70-110)
[2019-08-24] VITALS (10 sets, daily range): BP systolic 117–129; BP diastolic 57–89; PULSE 67–76; RESP 16–22; TEMP 36.4–36.9; O2SAT 93–96
--- NOTE | 2019-08-24 | FLU_PTH ---
PATIENT: KINGS MARCANO LOC: [facility] U#:[id number] AGE/SX: 74/M ROOM: [facility] RE08/23/[address]: Dr. Serena Day DO : 1945 BED: 1 DIS: 08/26/2019 SPEC #: [id number] RECD: 08/24/19 18:01 STATUS: CYNTHIA JAROCHO #: [id number] ROC: 08/24/19 00:[address]: Serena Day DEPT: CYTOLOGY RECD BY: Trevor Padgett ENTERED: 08/27/19 09:15 SP TYPE: Fluid OTHR DR: MD Dr. Carlton Justin DO Dr. Peter Katsaros, MD Tissues: THORACIC FLUID Procedures: Special Stain Group II Surgery Specimen Level IV Cytospin Fluid HEADER OPERATION: Ultrasound-guided right thoracentesis PRE-OP DIAGNOSIS: Right pleural effusion TISSUE SUBMITTED: Thoracentesis fluid for cytology DIAGNOSIS CYTOLOGY Right thoracentesis fluid for cytology (cytospin and cell block): Negative for malignant cells. ANTHONY:alena 08/28/19 CYTOLOGY STUDY Slides are reviewed. CYTOLOGY GROSS Received is 100 ml of red cloudy fluid labeled with the patient's name and and designated per the requisition as thoracentesis. Submitted for cytology preparation including cell block. / alena 08/27/19 TC:5 CPT: 88561, 85580 ADDENDUM ADDENDUM ADDENDUM ADDENDUM ADDENDUM ADDENDUM ADDENDUM 08/30/2019 11:12 ADDENDUM 08/30/2019 11:12 ADDENDUM 08/30/2019 11:12 ADDENDUM 08/30/2019 11:12 ADDENDUM 08/30/2019 11:12 FLOW CYTOMETRY REPORT FROM [facility] FLOW INTERPRETATION: No immunophenotypic evidence of a monoclonal B-cell or aberrant Tcell population detected. Please see complete report in e-chart or EMR for further details
--- NOTE | 2019-08-24 00:18 | NURSING ---
This nurse received report from Yue Lawrence RN at this time. This nurse to take over care of this patient.
[2019-08-24] MEDS: 0.9% Saline Lock 10 ML Syringe IV ×2 (05:40→21:33)
[2019-08-24 06:46] LABS: Anion Gap 8 (5-15); BUN 23 mg/dL (7-18); BUN/Creat Ratio 14.2 RATIO (10-20); Chloride 104 mmol/L (98-107); Creatinine, Serum 1.62 mg/dL (0.70-1.30); EST Glomerular Filtration Rate 45 mL/min (>60); Est Glom Filt Rate - Afr Amer 54 mL/min (>60); Estimated Creatinine Clearance 41.93 ml/min; Glucose 109 mg/dL (74-106); Potassium 3.6 mmol/L (3.5-5.1); Sodium Level 139 mmol/L (136-145)
[2019-08-24 06:55] LABS: Bedside Glucose 113 mg/dL (70-110)
[2019-08-24 06:59] LABS: ALB/GLOB Ratio 0.8 RATIO (0.9-2.4); Globulin 3.8 g/dL (2.2-4.2); LDH 205 U/L (87-241)
--- NOTE | 2019-08-24 07:59 | RAD_ITS ---
STUDY: X-RAY CHEST REASON FOR EXAM: Male, 74 years old. POST THORACENTESIS TECHNIQUE: AP inspiration and expiration views. COMPARISON: Comparison is made with prior examination dated August 23, 2019. FINDINGS: The patient is status post right thoracentesis. There is no evidence of pneumothorax. Residual pleural-parenchymal changes persist at the right lung base. The left lung is unchanged. Cardiomegaly and rim-like calcification most likely pericardial calcification. RAD/Chest Insp/Exp 2 View IMPRESSION: Status post right thoracentesis. There is no evidence of pneumothorax. Mild residual pleural parenchymal changes are seen. Electronically Signed: Shravan Dumas, at 13:07 EDT , Service support ,
[2019-08-24 08:17] LABS: International Normalized Ratio 1.2; Prothrombin Time (Protime)PT. 14.9 SECONDS (11.7-14.9)
[2019-08-24 08:18] LABS: Partial Thromboplast Time 32.8 Seconds (24.1-36.2)
--- NOTE | 2019-08-24 08:48 | PCM.CONS.PUL ---
Problem List (1) Pleural effusion Status: Acute (2) CHF (congestive heart failure) Status: Acute Qualifiers: Heart failure type: unspecified Heart failure chronicity: unspecified Qualified Code(s): I50.9 - Heart failure, unspecified (3) Hyperlipidemia Status: Chronic (4) Diabetes mellitus, type II Status: Chronic (5) Family history of cardiovascular disease Status: Chronic (6) Hypertension Status: Chronic (7) Gastroesophageal reflux disease Status: Chronic Reason for Consult Date of Consultation: 08/24/19 Reason for Consultation: Pleural effusion History of Present Illness: The patient is a 74 year old M with past medical history listed below, who presented to [facility] on 08/23/2019 secondary to progressive shortness of breath with exertion. Patient stated that he started to have symptoms 3 to 4 days ago that have been progressive. Patient has had a cough since April that is described as a dry cough. Patient had been seen by pulmonology recently and had scheduled testing for later in August, but he came to the ER secondary to rapid worsening. Patient does state that this is worse with lying flat or exertion. Patient is also had some increased lower extremity swelling. Patient is not on oxygen at baseline. Patient denies any sick contacts, chest pain, palomo pain, nausea, vomiting or diarrhea. In the ER, patient was noted to have an EKG with sinus rhythm. Patient had a new right pleural effusion noted on chest x-ray. Chemistries showed a worsening in creatinine to 1.74, but CBC was normal. Patient was given some IV Lasix and admitted to the floor for further evaluation. Overnight, patient has received diuretic therapy. Patient states that he has been urinating frequently and overall feels subjectively improved compared to previous. Patient denies any current chest pain, abdominal pain, nausea or vomiting. Patient does not report a history of pleural effusion in the past. Patient has never been a smoker, but does drink 2-3 drinks per week. Patient denies any illicit drug use or trauma. 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 Patient states that many of his colleagues have from mesothelioma. Patient is unclear on the last time he was evaluated with imaging. Patient does not believe he is ever had pulmonary function test. Patient does report that he is compliant with his Lasix therapy. 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 Patient believes he was exposed to agent orange, but is not followed at the [facility] for this finding. Review of systems otherwise negative from a constitutional, HEENT, respiratory, cardiovascular, GI, genitourinary, musculoskeletal, skin, neurologic, psychiatric and hematologic system unless stated above. Past Medical History Past Medical History (Chronic Problems): Chronic Problems Snoring (Chronic) Hyperlipidemia (Chronic) Diabetes mellitus, type II (Chronic) Family history of cardiovascular disease (Chronic) Hypertension (Chronic) Gastroesophageal reflux disease (Chronic) Cerumen impaction (Chronic) Allergies No Known Allergies Allergy (Verified 08/23/19 13:17) Home Medications: Ambulatory Orders Medication Instructions Recorded Pioglitazone [Actos] 30 mg PO DAILY 05/21/15 Simvastatin [Zocor] 20 mg PO QHS 05/21/15 metFORMIN HCl [Glucophage] 500 mg PO BID 05/21/15 Aspirin [Aspirin EC] 81 mg PO DAILY@0800 08/23/19 Atenolol [Tenormin] 25 mg PO BID 08/23/19 Cimetidine 400 mg PO BID 08/23/19 Furosemide [Lasix] 20 mg PO DAILY 08/23/19 Linagliptin [Tradjenta] 5 mg DAILY 08/23/19 Lisinopril 40 mg PO DAILY 08/23/19 Surgical History: herniorrhaphy - Abdominal ventral hernia with mesh Psychiatric History: No pertinent psych hx Lives: Spouse/ Significant Other Smoking Status: Never smoker Tobacco Use: Non-smoker Alcohol: Occasional Drugs: None - *Family History Maternal History Items: Heart Disease Paternal History Items: Heart Disease - Father had an MT at 66 Sibling History Items: - - One brother who with an MT at 48 and another brother who is from brain CA Review of Systems Comment: See HPI Patient Problems: Active and Suspected Problems CHF (congestive heart failure) (Acute) Pleural effusion (Acute) Objective: Chest x-ray was personally reviewed and shows a moderate to large right-sided pleural effusion. Patient does not have any recent echocardiograms or pulmonary function tests available for review. - Physical Exam Vitals/I&O's: Vital Signs Temp Pulse Resp BP Pulse Ox 36.9 C 69 20 H 126/72 H 94 08/24/19 04:00 08/24/19 04:00 08/24/19 04:00 08/24/19 04:00 08/24/19 04:00 Oxygen Delivery Method Room Air Weight: 109.5 kg Body Mass Index (BMI) 34.9 Intake and Output for Last 24 Hours 08/22/19 08/23/19 08/24/19 23:59 23:59 23:59 Intake Total 240 / 240 100 / 100 Output Total 2825 / 2825 2300 / 2300 Balance -2585 / -2585 -2200 / -2200 General: Alert, Oriented x3, Cooperative, No apparent distress, - - Obese. Speaking in full sentences. HEENT: Atraumatic, PERRLA, EOMI, Normocephalic, - - No scleral icterus or injection noted Oral: Moist Mucosa, No Gingival or Mucosal Lesions/ Ulcerations Neck: Supple, No Nodes, Trachea Midline, JVD, Right Lungs: No rhonchi, No wheeze, No rales, Diminished, - - Dullness to percussion at the right base Cardiovascular: Regular rate, Regular Rhythm, Normal S1, Normal S2, No murmurs, No rub noted, No Gallop Abdomen: Bowel Sounds Present, Soft, Non Tender, Non-Distended, Obese Extremities: No clubbing, No cyanosis, Capillary Refill Less than 3 Seconds, Edema - 3-4+ lower extremity edema Skin: - - Venous stasis changes of the lower extremities Musculoskeletal: No Tenderness to Palpation of Joints or Extremities Lymphatic: No Cervical, Supraclavicular, or Inguinal Adenopathy Neurological: Cranial nerves II-XII grossly intact, Neuro grossly intact, Motor Exam 5/5 strength throughout Psych/Mental Status: Alert and oriented to time, place, person, mood and affect Laboratory Results 08/23/19 13:50: WBC 6.8, RBC 4.26 L, Hgb 13.1, Hct 41.0, MCV 96.2 H, MCH 30.8, MCHC 32.0, RDW Std Deviation 54.2 H, RDW Coeff of Ena 15.4 H, Plt Count 251, MPV 11.5, Immature Gran % (Auto) 0.400, Neut % (Auto) 73.8 H, Lymph % (Auto) 8.7 L, Carroll % (Auto) 13.0 H, Eos % (Auto) 3.4, Baso % (Auto) 0.7, Absolute Neuts (auto) 5.0, Absolute Lymphs (auto) 0.59 L, Nucleated RBC % 0 08/23/19 13:50: Sodium Cancelled, Potassium Cancelled, Chloride Cancelled, Carbon Dioxide Cancelled, Anion Gap Cancelled, BUN Cancelled, Creatinine Cancelled, Estim Creat Clear Calc Cancelled, Est GFR (MDRD) Af Amer Cancelled, Est GFR (MDRD) Non-Af Cancelled, BUN/Creatinine Ratio Cancelled, Glucose Cancelled, Calcium Cancelled, Troponin I Cancelled 08/23/19 13:50: B-Natriuretic Peptide 289.5 H 08/23/19 14:25: Sodium 144, Potassium 4.0, Chloride 112 H, Carbon Dioxide 24.0, Anion Gap 8, BUN 25 H, Creatinine 1.74 H, Estim Creat Clear Calc 40.27, Est GFR (MDRD) Af Amer 50 L, Est GFR (MDRD) Non-Af 41 L, BUN/Creatinine Ratio 14.4, Glucose 108 H, Calcium 9.4, Troponin I < 0.015 08/23/19 18:18: POC Glucose 96 08/23/19 21:44: POC Glucose 132 H 08/24/19 06:08: Lactate Dehydrogenase 205, Total Protein 7.0, Globulin 3.8, Albumin/Globulin Ratio 0.8 L 08/24/19 06:08: Sodium 139, Potassium 3.6, Chloride 104, Carbon Dioxide 27.0, Anion Gap 8, BUN 23 H, Creatinine 1.62 H, Estim Creat Clear Calc 41.93, Est GFR (MDRD) Af Amer 54 L, Est GFR (MDRD) Non-Af 45 L, BUN/Creatinine Ratio 14.2, Glucose 109 H, Calcium 9.0 08/24/19 06:08: PT 14.9, INR 1.2, APTT 32.8 08/24/19 06:38: POC Glucose 113 H Current Medications Aspirin (Ecotrin) 81 mg PO DAILY@0800 [facility] Last Admin: 08/24/19 06:56 Dose: Not Given Documented by: Atenolol (Tenormin (Beta Augustine)) 25 mg PO BID [facility] Last Admin: 08/23/19 21:48 Dose: 25 mg Documented by: Atorvastatin Calcium (Lipitor) 10 mg PO QHS [facility] Last Admin: 08/23/19 21:47 Dose: 10 mg Documented by: Dextrose (D50w Syringe) 0 gm IV X1 PRN; Protocol PRN Reason: Hypoglycemia Furosemide (Lasix) 20 mg IV Q12 [facility] Last Admin: 08/23/19 21:47 Dose: 20 mg Documented by: Glucagon () 1 mg IM .X1 PRN PRN Reason: Hypoglycemia Sodium Chloride () 500 mls @ 15 mls/hr IV PRN PRN PRN Reason: Blood Transfusion Sodium Chloride () 250 mls @ 15 mls/hr IV .[id number] PRN PRN Reason: Saline Flush Sodium Chloride () 250 mls @ 15 mls/hr IV .[id number] PRN PRN Reason: Additional IVPB Infusion Insulin Human Lispro (Humalog Kwikpen (Bkc)) 0 unit SC ACHS [facility]; Protocol Last Admin: 08/24/19 06:55 Dose: Not Given Documented by: Linagliptin (Tradjenta) 5 mg PO DAILY [facility] Lisinopril (Zestril) 40 mg PO DAILY [facility] Metformin HCl (Glucophage) 500 mg PO BIDCM [facility] Nutritional Formula (Lactose Free) (Glucerna Shake) 120 ml PO 4X/DAY [facility] Last Admin: 08/23/19 21:51 Dose: Not Given Documented by: Potassium Chloride (K-Dur) 20 meq PO BIDCM [facility] Sodium Chloride () 10 - 40 ml IV UD PRN PRN Reason: SALINE FLUSH Last Admin: 08/24/19 05:40 Dose: 10 ml Documented by: Clinical Impression(s) from Imaging Studies Chest X-Ray 08/23/19 14:05 IMPRESSION: New small right pleural effusion with underlying atelectasis and/or infiltration. Stable linear calcification most likely pericardial in nature. Electronically Signed: Shravan Dumas, at 14:27 EDT , Service support , Assessment/Plan All Active Problems CHF (congestive heart failure) (Acute) Pleural effusion (Acute) Chest tightness (Acute) Sinus tachycardia (Acute) SOB (shortness of breath) (Acute) TMJ arthralgia (Acute) Nausea and vomiting in adult (Acute) RECOMMENDATIONS: 1. Obtain repeat echocardiogram 2. Obtain diagnostic and therapeutic thoracentesis 3. Agree with empiric diuresis 4. Further recommendations following thoracentesis IMPRESSIONS: 1. New onset right pleural effusion Unclear etiology at this time. Patient has possible etiologies of both transudate and exudate physiology. Patient does have significant lower extremity edema, so congestive heart failure would be a consideration. Patient also has significant environmental exposures, so malignancy such as mesothelioma would also be a consideration. Await diagnostic/therapeutic thoracentesis prior to further evaluation. Patient may require a CT scan in the future for evaluation of pulmonary fibrosis. Patient should have a pulmonary function test as an outpatient for quantification clarification of lung function. Patient should have a walking oximetry prior to discharge. If found to have pulmonary fibrosis[facility] the only entity allowed to evaluate agent orange associated pulmonary fibrosis. 2. Suspected acute congestive heart failure Patient does have a slightly elevated BNP. Echocardiogram has been ordered. Patient has had improvement in creatinine following diuresis indicating probable overload leading to decrease Starling forces. Would continue with diuresis empirically. Patient should be taught on low-sodium diet. Consider outpatient follow-up with cardiology. 3. Suspected CKD 3/hypertension/diabetes mellitus type 2/hyperlipidemia/advanced age/obesity Complicates care, management, recovery and prognosis. Okay to continue with baseline medications from my perspective. But pressure appears to be well controlled. Inpatient E&M: 12322 Init Hosp L3
[2019-08-24] MEDS: Atenolol 25 MG Tablet PO ×2 (09:58→21:32)
[2019-08-24] MEDS: metFORMIN HCl 500 MG Tablet PO ×2 (09:58→17:30)
[2019-08-24] MEDS: LINAGLIPTIN 5 MG TABLET PO (09:59)
[2019-08-24] MEDS: Glucerna Shake 120 ML LIQUID PO ×2 (09:59→21:30)
[2019-08-24] MEDS: Lisinopril 40 MG Tablet PO (09:59)
[2019-08-24 12:56] LABS: Bedside Glucose 185 mg/dL (70-110)
--- NOTE | 2019-08-24 13:04 | PCM.PN.HOSP ---
Patient Problems: Active and Suspected Problems CHF (congestive heart failure) (Acute) Pleural effusion (Acute) Reason for Visit: SOB Subjective: SOB improved. LE edema improved with MODESTO wraps. No chest pain/pressure/tightness/heaviness. No palp. No fever/chills. Going for thora today. Vitals/I&O's: Vital Signs Temp Pulse Resp BP Pulse Ox 97.7 F L 76 16 117/57 L 95 08/24/19 09:47 08/24/19 09:47 08/24/19 09:47 08/24/19 09:47 08/24/19 09:47 Oxygen Delivery Method Room Air Weight: 241 lb 6.499 oz Body Mass Index (BMI) 34.9 Intake and Output for Last 24 Hours 08/22/19 08/23/19 08/24/19 23:59 23:59 23:59 Intake Total 240 / 240 580 / 580 Output Total 2825 / 2825 3025 / 3025 Balance -2585 / -2585 -2445 / -2445 General: Alert, Oriented x3, Cooperative HEENT: Atraumatic, PERRLA, EOMI, Normocephalic Neck: Supple, No JVD, Negative Carotid Bruits Lungs: Clear to auscultation, Diminished - right lung Cardiovascular: Regular rate, Murmur - 2/6 systolic murmur LSB Abdomen: Bowel Sounds Present, Soft, Non Tender Extremities: No edema, Capillary Refill Less than 3 Seconds Skin: No rashes, No breakdown Musculoskeletal: No Tenderness to Palpation of Joints or Extremities Neurological: Cranial nerves II-XII grossly intact Psych/Mental Status: Normal Affect, Appropriate, Alert and oriented to time, place, person, mood and affect Laboratory Results 08/23/19 13:50: WBC 6.8, RBC 4.26 L, Hgb 13.1, Hct 41.0, MCV 96.2 H, MCH 30.8, MCHC 32.0, RDW Std Deviation 54.2 H, RDW Coeff of Ena 15.4 H, Plt Count 251, MPV 11.5, Immature Gran % (Auto) 0.400, Neut % (Auto) 73.8 H, Lymph % (Auto) 8.7 L, Winston % (Auto) 13.0 H, Eos % (Auto) 3.4, Baso % (Auto) 0.7, Absolute Neuts (auto) 5.0, Absolute Lymphs (auto) 0.59 L, Nucleated RBC % 0 08/23/19 13:50: Sodium Cancelled, Potassium Cancelled, Chloride Cancelled, Carbon Dioxide Cancelled, Anion Gap Cancelled, BUN Cancelled, Creatinine Cancelled, Estim Creat Clear Calc Cancelled, Est GFR (MDRD) Af Amer Cancelled, Est GFR (MDRD) Non-Af Cancelled, BUN/Creatinine Ratio Cancelled, Glucose Cancelled, Calcium Cancelled, Troponin I Cancelled 08/23/19 13:50: B-Natriuretic Peptide 289.5 H 08/23/19 14:25: Sodium 144, Potassium 4.0, Chloride 112 H, Carbon Dioxide 24.0, Anion Gap 8, BUN 25 H, Creatinine 1.74 H, Estim Creat Clear Calc 40.27, Est GFR (MDRD) Af Amer 50 L, Est GFR (MDRD) Non-Af 41 L, BUN/Creatinine Ratio 14.4, Glucose 108 H, Calcium 9.4, Troponin I < 0.015 08/23/19 18:18: POC Glucose 96 08/23/19 21:44: POC Glucose 132 H 08/24/19 06:08: Lactate Dehydrogenase 205, Total Protein 7.0, Globulin 3.8, Albumin/Globulin Ratio 0.8 L 08/24/19 06:08: Sodium 139, Potassium 3.6, Chloride 104, Carbon Dioxide 27.0, Anion Gap 8, BUN 23 H, Creatinine 1.62 H, Estim Creat Clear Calc 41.93, Est GFR (MDRD) Af Amer 54 L, Est GFR (MDRD) Non-Af 45 L, BUN/Creatinine Ratio 14.2, Glucose 109 H, Calcium 9.0 08/24/19 06:08: PT 14.9, INR 1.2, APTT 32.8 08/24/19 06:38: POC Glucose 113 H 08/24/19 11:36: POC Glucose 185 H Current Medications Aspirin (Ecotrin) 81 mg PO DAILY@0800 [facility] Last Admin: 08/24/19 06:56 Dose: Not Given Documented by: Atenolol (Tenormin (Beta Augustine)) 25 mg PO BID [facility] Last Admin: 08/24/19 09:58 Dose: 25 mg Documented by: Atorvastatin Calcium (Lipitor) 10 mg PO QHS [facility] Last Admin: 08/23/19 21:47 Dose: 10 mg Documented by: Dextrose (D50w Syringe) 0 gm IV X1 PRN; Protocol PRN Reason: Hypoglycemia Furosemide (Lasix) 20 mg IV Q12 [facility] Last Admin: 08/23/19 21:47 Dose: 20 mg Documented by: Glucagon () 1 mg IM .X1 PRN PRN Reason: Hypoglycemia Sodium Chloride () 500 mls @ 15 mls/hr IV PRN PRN PRN Reason: Blood Transfusion Sodium Chloride () 250 mls @ 15 mls/hr IV .[id number] PRN PRN Reason: Saline Flush Sodium Chloride () 250 mls @ 15 mls/hr IV .[id number] PRN PRN Reason: Additional IVPB Infusion Insulin Human Lispro (Humalog Kwikpen (Bkc)) 0 unit SC ACHS [facility]; Protocol Last Admin: 08/24/19 11:38 Dose: Not Given Documented by: Linagliptin (Tradjenta) 5 mg PO DAILY [facility] Last Admin: 08/24/19 09:59 Dose: 5 mg Documented by: Lisinopril (Zestril) 40 mg PO DAILY [facility] Last Admin: 08/24/19 09:59 Dose: 40 mg Documented by: Metformin HCl (Glucophage) 500 mg PO BIDCM [facility] Last Admin: 08/24/19 09:58 Dose: 500 mg Documented by: Nutritional Formula (Lactose Free) (Glucerna Shake) 120 ml PO 4X/DAY [facility] Last Admin: 08/24/19 09:59 Dose: 120 ml Documented by: Potassium Chloride (K-Dur) 20 meq PO BIDCM [facility] Last Admin: 08/24/19 09:58 Dose: 20 meq Documented by: Sodium Chloride () 10 - 40 ml IV UD PRN PRN Reason: SALINE FLUSH Last Admin: 08/24/19 05:40 Dose: 10 ml Documented by: STROKE Vital Signs/Narrative: Vital Signs Temp Pulse Resp BP Pulse Ox 08/24/19 09:47 97.7 F L 76 16 117/57 L 95 Medical Necessity - Tobacco Use Smoking Status: Never smoker Tobacco Use: Non-smoker Assessment/Plan All Active Problems CHF (congestive heart failure) (Acute) Pleural effusion (Acute) Chest tightness (Acute) Sinus tachycardia (Acute) SOB (shortness of breath) (Acute) TMJ arthralgia (Acute) Nausea and vomiting in adult (Acute) 1. Acute diastolic CHF - no prior. Echo with EF 65% and stage 2 diastolic dysfunction, RVSP 22 mmHg. Thoracentesis today. Pulm following. CT chest after thora. Improving on IV lasix. 2. Suspect CKDIII - trend BMP. 3. HTN - continue home meds 4. Dmt2 - hold orals. SSI. 5. HLD - continue Statin DVT ppx: held for thora. This patient was seen by Omar williamson PA-C under the supervision of Dr. Day
[2019-08-24 13:14] LABS: Cytology, Body Fluid / CSF SEE PATHOLOGY REPORT
[2019-08-24 13:29] LABS: Body Fluid Mononuclear WBC # 0.278 10^3/uL; Body Fluid Mononuclear WBC % 97.2 %; Body Fluid Polynuclear WBC # 0.008 10^3/uL; Body Fluid Polynuclear WBC % 2.8 %; Body Fluid Total Cells Counted 0.289 10^3/ul; Red Cell Count/Body Fluid 0.008 10^6/ul; Source- Body Fluid THORACENTESIS; White Blood Count/Body Fluid 0.286 10^3/uL
[2019-08-24 13:33] LABS: Appearance/Body Fluid CLEAR; Color/Body Fluid YELLOW
[2019-08-24 13:34] LABS: Auto B Fluid Analyzer BKGD Ct COUNTS W/IN LIMITS (W/IN LIMITS)
--- NOTE | 2019-08-24 13:34 | CT_ITS ---
STUDY: CT CHEST WITHOUT CONTRAST REASON FOR EXAM: Male, 74 years old. PT STATED SHORT OF BREATH, THORACENTESIS EARLIER TODAY RADIATION DOSAGE (If Supplied By Facility): CTDIvol = ( 17.80 ) mGy, DLP = ( 628.52 ) mGycm TECHNIQUE: Transaxial imaging was performed without the administration of intravenous contrast material. Multiplanar coronal and sagittal images were reformatted. Individualized dose optimization techniques were used for this CT. COMPARISON: None. FINDINGS: Minimal residual right pleural effusion. Small left pleural effusion. Atelectasis and/or consolidation in the posterior medial segment of the right lower lobe. Minimal basilar atelectasis on the left base. Pericardial calcification. There are multiple small lymph nodes within the mediastinum, which are normal in size and morphology most compatible with reactive lymph hyperplasia. Normal hilar regions. Normal unenhanced pulmonary arteries. There is atherosclerotic calcification of the aortic arch with tortuosity and elongation of the aortic arch and descending thoracic aorta. There are multi-level degenerative changes of the thoracic spine. There is no demonstrated abnormality of the visualized upper abdomen. CT/Chest without Contrast IMPRESSION: Minimal residual right pleural effusion with infiltration and/or atelectasis in the posteromedial segment of the right lower lobe. Small left pleural effusion with left basilar atelectasis. Pericardial calcification. Electronically Signed: Shravan Dumas, at 15:15 EDT , Service support ,
[2019-08-24] MEDS: oxyCODONE 5 MG Tablet PO ×2 (13:37→20:15)
[2019-08-24 14:25] LABS: Glucose, Body Fluid 129 mg/dL (40-70); LDH,Body Fluid 101 Units/l (Not Establ.)
[2019-08-24 14:49] LABS: Body Fluid QC Type(s) BF1Q; Lymphocytes 91 %; Monocytes 6 %; Neutrophil (Segs) 3 %
[2019-08-24 17:11] LABS: Bedside Glucose 117 mg/dL (70-110)
--- NOTE | 2019-08-24 18:13 | US_ITS ---
PROCEDURE: ULTRASOUND GUIDED THORACENTESIS. DATE: August 24, 2019. INDICATION: Male, 74 years old. Right pleural effusion. PHYSICIAN: Shravan Dumas M.D. PROCEDURE: The risks, benefits, and alternatives to the procedure were explained to the patient. The specific risks of bleeding, infection, and pneumothorax requiring chest tube insertion were discussed and accepted. Written informed consent was obtained. Ultrasonographic evaluation of the right lower pleural space was carried out. An adequate pocket was identified. The patient was placed in the sitting, upright position. The overlying skin was prepped and draped in sterile fashion. 1% lidocaine was administered subcutaneously for local anesthesia. Under ultrasound guidance, a 5 Cymraes thoracentesis needle/catheter system was advanced into the right posterior lower pleural fluid collection. Approximately 1470 mL of carolee-colored fluid was drained. The catheter was removed, and a sterile dressing was applied. A specimen was collected and sent to the laboratory for analysis, as requested by the referring clinician. The patient tolerated the procedure well. A chest x-ray was ordered. US/Thoracentesis W US IMPRESSION: Ultrasound-guided right thoracentesis. Electronically Signed: Shravan Dumas, at 13:41 EDT , Service support ,
[2019-08-24] MEDS: Insulin Lispro 100 UNIT/ML INSULN.PEN SC (21:30)
[2019-08-24] MEDS: Atorvastatin Calcium 10 MG Tablet PO (21:32)
[2019-08-24] MEDS: Furosemide 20 MG/2 ML VIAL IV (21:33)
[2019-08-24 21:41] LABS: Bedside Glucose 191 mg/dL (70-110)
[2019-08-25] VITALS (11 sets, daily range): BP systolic 108–125; BP diastolic 61–77; PULSE 67–83; RESP 16–18; TEMP 36.4–37.1; O2SAT 87–97
--- NOTE | 2019-08-25 05:00 | EKG12_ITS ---
Test Reason : AM EKG Blood Pressure : / mmHG Vent. Rate : 069 BPM Atrial Rate : 069 BPM P-R Int : 184 ms QRS Dur : 076 ms QT Int : 454 ms P-R-T Axes : 016 068 -66 degrees QTc Int : 486 ms Normal sinus rhythm ST & T wave abnormality, consider inferior ischemia Prolonged QT Abnormal ECG When compared with ECG of 23-AUG-2019 13:42, MANUAL COMPARISON REQUIRED, DATA IS UNCONFIRMED Confirmed by SHELBY LOO, TIM ([id number]), managing editor ABDOUL JOSÉ ([id number]) on 08/28/2019 1:49:10 PM Referred By: ADRIANNA Confirmed By:TIM RYAN MD
[2019-08-25] MEDS: Lisinopril 40 MG Tablet PO (05:54)
[2019-08-25] MEDS: Aspirin E.C. 81 MG Tablet PO (05:54)
[2019-08-25 06:46] LABS: Bedside Glucose 130 mg/dL (70-110)
--- NOTE | 2019-08-25 07:02 | STEWCON_ITS ---
Reason For Study: CHF Stress Results Protocol: Dobutamine Stress With Definity Maximum Predicted HR: 147 bpm Target HR: 125 bpm % Maximum Predicted HR: 88 % DurationHeart Rate Stage (mm:ss) (bpm) BP Dose Comment BASELINE 73 133/87 8 CC DEFINITY TOTAL FOR TEST STAGE 1 3:00 74 116/6810.00 STAGE 2 3:00 98 118/6320.00 STAGE 3 3:00 110 115/5730.00 STAGE 4 4:44 129 121/5940.000.5 MG ATROPINE GIVEN RECOVERY 112 105/39 Stress Duration: 13:44 mm:ss Maximum Stress HR: 129 bpm Baseline Echocardiogram Findings The estimated ejection fraction is 65 %. Stress Echo Wall motion Data Resting WM Intermediate WM Stress WM Resting Wall Motion Wall Motion Stress No regional wall motion No regional wall motion abnormalities noted. abnormalities noted. EKG Data The baseline ECG displays normal sinus rhythm. The patient was titrated from 10 mcg to a maximum of 40 mcg of dobutamine during the stress. The maximum heart rate attained was 130 beats per minute. This was 88% of maximum predicted heart rate. During dobutamine infusion, there were no ST or T wave changes noted to suggest ischemia. No clinical angina was noted. Interpretation Summary The estimated ejection fraction is 65 %. Normal, adequate, dobutamine echocardiogram. Negative for ischemia by EKG and echocardiographic criteria. No anginal symptoms noted. Rare PVC noted. Patient at baseline inferior lateral downward sloping ST depression with T wave inversion which did not appreciably change at peak exercise. Final LVEF is 75%. Decrease sensitivity due to poor echo windows requiring Definity agent. Patient tolerated the procedure well. The study was technically difficult. The study was technically limited. A transesophageal echocardiogram is recommended. Ordering Physician: Serena Day Performed By: Annette Billy, TEDCS, RVT
[2019-08-25 07:07] LABS: ALB/GLOB Ratio 0.7 RATIO (0.9-2.4); AST(SGOT) 17 U/L (15-37); Alanine Aminotransfer ALT/SGPT 17 U/L (16-61); Albumin, Serum 2.9 g/dL (3.2-5.0); Alkaline Phosphatase 265 U/L (45-117); Anion Gap 10 (5-15); BUN 22 mg/dL (7-18); BUN/Creat Ratio 15.3 RATIO (10-20); Calcium,Total 8.9 mg/dL (8.5-10.1); Chloride 102 mmol/L (98-107); Cholesterol 102 mg/dL (200); Creatinine, Serum 1.44 mg/dL (0.70-1.30); EST Glomerular Filtration Rate 51 mL/min (>60); Est Glom Filt Rate - Afr Amer 62 mL/min (>60); Estimated Creatinine Clearance 47.17 ml/min; Globulin 3.9 g/dL (2.2-4.2); Glucose 132 mg/dL (74-106); High Density Lipoprotein 31 mg/dL; Magnesium 1.8 mg/dL (1.6-2.6); Phosphorus 3.1 mg/dL (2.5-4.9); Potassium 3.5 mmol/L (3.5-5.1); Protein, Total 6.8 g/dL (6.4-8.2); Sodium Level 138 mmol/L (136-145); Triglycerides 75 mg/dL; Very Low Density Lipoprotein 15 mg/dL (5-40)
--- NOTE | 2019-08-25 08:16 | PCM.PN.PUL ---
Patient Problems: Active and Suspected Problems CHF (congestive heart failure) (Acute) Pleural effusion (Acute) Subjective: Patient did well overnight. Patient did have thoracentesis yesterday with approximately 1.5 L removed and reported subjective improvement in dyspnea following the procedure. Patient does report some minor discomfort at the procedure site this morning. Objective: CT scan of the chest was personally reviewed. Significant improvement in pleural effusion. Patient does have some calcification of the pericardium and scattered areas of bronchiectasis. No significant fibrotic changes appreciated. - Physical Exam Vitals/I&O's: Vital Signs Temp Pulse Resp BP Pulse Ox 36.7 C 70 18 121/69 H 93 08/25/19 04:58 08/25/19 06:59 08/25/19 04:58 08/25/19 04:58 08/25/19 04:58 Oxygen Delivery Method [3] Room Air Oxygen Delivery Method [2] Room Air Oxygen Delivery Method [1 ( Room Air Initial Baseline)] Oxygen Delivery Method Room Air Weight: 104.4 kg Body Mass Index (BMI) 34.9 Orthostatic Vital Signs Start: 08/25/19 04:53 Freq: q24h Status: Active Protocol: Activity Type Activity Date Activity User E-Sign Co-Sign Detail Recorded Client Recorded Date Recorded By Document 08/25/19 04:53 [facility] [id number] 08/25/19 04:58 [facility] 08/25/19 04:53 Orthostatic Vitals Standing -Blood Pressure (90/60-120/80) 121/69 H -Extremity Use Right Arm -Pulse Rate (60-100) 72 Sitting -Blood Pressure (90/60-120/80) 117/69 -Extremity Use Right Arm -Pulse Rate (60-100) 71 Lying -Blood Pressure (90/60-120/80) 112/67 -Extremity Use Right Arm -Pulse Rate (60-100) 70 Intake and Output for Last 24 Hours 08/23/19 08/24/19 08/25/19 23:59 23:59 23:59 Intake Total 240 / 240 1070 / 1070 100 / 100 Output Total 2825 / 2825 5345 / 5345 875 / 875 Balance -2585 / -2585 -4275 / -4275 -775 / -775 General: Alert, Oriented x3, Cooperative, No apparent distress, - - No conversational dyspnea. Off supplemental oxygen. HEENT: Atraumatic, PERRLA, EOMI, Normocephalic, - - No scleral icterus or injection noted Oral: Moist Mucosa, No Gingival or Mucosal Lesions/ Ulcerations Neck: Supple, No JVD, No Nodes, Trachea Midline Lungs: No rhonchi, No wheeze, Diminished, Rales - Right base, but improves with coughing Cardiovascular: Regular rate, Regular Rhythm, Normal S1, Normal S2, No murmurs, No rub noted, No Gallop Abdomen: Bowel Sounds Present, Soft, Non Tender, Non-Distended, Obese Extremities: No clubbing, No cyanosis, Edema - Improved Skin: - - No change compared to previous Musculoskeletal: No Tenderness to Palpation of Joints or Extremities Lymphatic: No Cervical, Supraclavicular, or Inguinal Adenopathy Neurological: Cranial nerves II-XII grossly intact, Neuro grossly intact, Motor Exam 5/5 strength throughout Psych/Mental Status: Alert and oriented to time, place, person, mood and affect Microbiology Past 72 Hours 08/24/19 12:45 Fluid - Pleural (Lung) Gram Stain - Final Laboratory Results 08/24/19 06:08: PT 14.9, INR 1.2, APTT 32.8 08/24/19 11:36: POC Glucose 185 H 08/24/19 12:45: Fluid Glucose 129 H, Fluid Total Protein 2.0, Fluid LDH 101 08/24/19 12:45: Fluid pH Pending 08/24/19 12:45: Fluid Source THORACENTESIS, Fluid Color YELLOW, Fluid Appearance CLEAR, Fluid WBC 0.286, Fluid RBC 0.008, Fluid Tot Cell Count 0.289, Fld Polynuclear WBCs # 0.008, Fld Polynuclear WBCs % 2.8, Fluid Mononuclear WBCs 0.278, Fld Mononuclear WBCs % 97.2, Fluid Neutrophils 3, Fluid Lymphocytes 91, Fluid Monocytes 6, Fl Pathologist Comment May follow, Fluid Comment 2 SEE COMMENT 08/24/19 12:45: Miscellaneous Cytology Pending 08/24/19 17:07: POC Glucose 117 H 08/24/19 21:23: POC Glucose 191 H 08/25/19 05:50: Sodium 138, Potassium 3.5, Chloride 102, Carbon Dioxide 26.0, Anion Gap 10, BUN 22 H, Creatinine 1.44 H, Estim Creat Clear Calc 47.17, Est GFR (MDRD) Af Amer 62, Est GFR (MDRD) Non-Af 51 L, BUN/Creatinine Ratio 15.3, Glucose 132 H, Calcium 8.9, Phosphorus 3.1, Magnesium 1.8, Total Bilirubin 1.40 H, AST 17, ALT 17, Alkaline Phosphatase 265 H, Total Protein 6.8, Albumin 2.9 L, Globulin 3.9, Albumin/Globulin Ratio 0.7 L, Triglycerides 75, Cholesterol 102, LDL Cholesterol 56, VLDL Cholesterol 15, HDL Cholesterol 31 L 08/25/19 05:50: Hemoglobin A1c Pending 08/25/19 06:39: POC Glucose 130 H Current Medications Aspirin (Ecotrin) 81 mg PO DAILY@0800 [facility] Last Admin: 08/25/19 05:54 Dose: 81 mg Documented by: Atenolol (Tenormin (Beta Augustine)) 25 mg PO BID [facility] Last Admin: 08/24/19 21:32 Dose: 25 mg Documented by: Atorvastatin Calcium (Lipitor) 10 mg PO QHS [facility] Last Admin: 08/24/19 21:32 Dose: 10 mg Documented by: Dextrose (D50w Syringe) 0 gm IV X1 PRN; Protocol PRN Reason: Hypoglycemia Furosemide (Lasix) 20 mg IV Q12 [facility] Last Admin: 08/24/19 21:33 Dose: 20 mg Documented by: Glucagon () 1 mg IM .X1 PRN PRN Reason: Hypoglycemia Sodium Chloride () 500 mls @ 15 mls/hr IV PRN PRN PRN Reason: Blood Transfusion Sodium Chloride () 250 mls @ 15 mls/hr IV .[id number] PRN PRN Reason: Saline Flush Sodium Chloride () 250 mls @ 15 mls/hr IV .[id number] PRN PRN Reason: Additional IVPB Infusion Insulin Human Lispro (Humalog Kwikpen (Bkc)) 0 unit SC ACHS [facility]; Protocol Last Admin: 08/25/19 06:41 Dose: Not Given Documented by: Linagliptin (Tradjenta) 5 mg PO DAILY [facility] Last Admin: 08/24/19 09:59 Dose: 5 mg Documented by: Lisinopril (Zestril) 40 mg PO DAILY [facility] Last Admin: 08/25/19 05:54 Dose: 40 mg Documented by: Metformin HCl (Glucophage) 500 mg PO BIDCM [facility] Last Admin: 08/24/19 17:30 Dose: 500 mg Documented by: Nutritional Formula (Lactose Free) (Glucerna Shake) 120 ml PO 4X/DAY [facility] Last Admin: 08/24/19 21:30 Dose: 120 ml Documented by: Oxycodone HCl (Oxyir) 5 mg PO Q4H PRN PRN PRN Reason: Pain Score 6-10/10 Last Admin: 08/24/19 20:15 Dose: 5 mg Documented by: Potassium Chloride (K-Dur) 20 meq PO BIDCM [facility] Last Admin: 08/24/19 17:30 Dose: 20 meq Documented by: Sodium Chloride () 10 - 40 ml IV UD PRN PRN Reason: SALINE FLUSH Last Admin: 08/24/19 21:33 Dose: 10 ml Documented by: Clinical Impression(s) from Imaging Studies Chest X-Ray 08/24/19 07:59 IMPRESSION: Status post right thoracentesis. There is no evidence of pneumothorax. Mild residual pleural parenchymal changes are seen. Electronically Signed: Shravan Dumas at 13:07 EDT , Service support , Chest CT 08/24/19 13:34 IMPRESSION: Minimal residual right pleural effusion with infiltration and/or atelectasis in the posteromedial segment of the right lower lobe. Small left pleural effusion with left basilar atelectasis. Pericardial calcification. Electronically Signed: Shravan Dumas at 15:15 EDT , Service support , Thoracentesis Ultrasound 08/24/19 18:13 IMPRESSION: Ultrasound-guided right thoracentesis. Electronically Signed: Shravan Dumas at 13:41 EDT , Service support , Medical Necessity - Tobacco Use Smoking Status: Never smoker Tobacco Use: Non-smoker Assessment/Plan All Active Problems CHF (congestive heart failure) (Acute) Pleural effusion (Acute) Chest tightness (Acute) Sinus tachycardia (Acute) SOB (shortness of breath) (Acute) TMJ arthralgia (Acute) Nausea and vomiting in adult (Acute) RECOMMENDATIONS: 1. Await results of stress test 2. Cardiac optimization 3. Continue with empiric diuresis 4. Outpatient complete PFT and walking oximetry IMPRESSIONS: 1. New onset right transudative pleural effusion Clinical suspicion for CHF associated right pleural effusion. Patient did have significant 1.5 L drained from the chest. Encourage incentive spirometer. Continue aggressive diuresis and cardiac optimization. Patient should have a walking oximetry prior to discharge, but no other pulmonary work-up would be indicated as an inpatient. 2. Acute diastolic congestive heart failure Patient does have a slightly elevated BNP. Echocardiogram shows preserved ejection fraction of 65% with stage II diastolic dysfunction and a right ventricular systolic pressure of 22 mmHg. RV was mildly dilated, which may be secondary to volume overload. Patient has had improvement in creatinine following diuresis indicating probable overload leading to decrease Starling forces. Would continue with diuresis empirically. Patient should be taught on low-sodium diet. Await results of stress test 3. Suspected CKD 3/hypertension/diabetes mellitus type 2/hyperlipidemia/advanced age/obesity/occupational exposures Complicates care, management, recovery and prognosis. Okay to continue with baseline medications from my perspective. But pressure appears to be well controlled. Pericardial calcification may be secondary to asbestos exposure. No signs of mesothelioma from my perspective. Bronchiectasis noted on CT scan may be secondary to occupational exposure. Patient should have a complete PFT and walking oximetry as an outpatient. Inpatient E&M: 84772 Subs Hosp L2
[2019-08-25] MEDS: Glucerna Shake 120 ML LIQUID PO ×3 (09:46→16:24)
[2019-08-25] MEDS: Furosemide 20 MG/2 ML VIAL IV ×2 (09:46→21:18)
[2019-08-25] MEDS: Atenolol 25 MG Tablet PO ×2 (09:47→21:17)
[2019-08-25] MEDS: metFORMIN HCl 500 MG Tablet PO ×2 (09:47→16:23)
[2019-08-25] MEDS: LINAGLIPTIN 5 MG TABLET PO (09:47)
[2019-08-25] MEDS: 0.9% Saline Lock 10 ML Syringe IV ×2 (09:47→21:18)
--- NOTE | 2019-08-25 10:20 | RAD_ITS ---
STUDY: X-RAY CHEST REASON FOR EXAM: Male, 74 years old. SOB TECHNIQUE: Frontal view COMPARISON: August 24, 2019 FINDINGS: The lungs are expanded. Increasing right pleural effusion since the previous study. There is right apical pleural thickening/effusion. Normal size heart. Normal mediastinum and ruthy. Normal visualized pulmonary arteries. Normal visualized aortic arch and descending thoracic aorta. Normal visualized thoracic spine. Normal visualized ribs, clavicles, and shoulders. There is no demonstrated abnormality of the visualized soft tissue structures of the upper abdomen. RAD/Chest 1 View (Portable) IMPRESSION: Mildly increased right pleural effusion since previous study. Electronically Signed: Cecilio Vasquez DO at 14:44 EDT Tel [phone], Service support ,
--- NOTE | 2019-08-25 10:43 | CASEMGMT ---
Intro role of CM to patient and [facility] form explained re: Observation status for treatment of CHF. Explained hospitalization will be paid per? insurance policy for Outpatient billing?and condition will continue to be evaluated for Inpt necessity. Also let pt know that [facility] sends paper in the billing packet with their phone number if questions arise. Discussed Pharmacy section of [facility] form and self administered medication guideline.? Pt verbalizes understanding and does not have further questions. Form signed and placed in chart, copy to pt. SHUKRI CORRALES BSN CM
[2019-08-25] MEDS: Insulin Lispro 100 UNIT/ML INSULN.PEN SC (11:27)
[2019-08-25 11:44] LABS: Hemoglobin A1c 6.1 % (3.8-5.6)
[2019-08-25 13:36] LABS: Absolute Lymphocyte Count 0.59 X10^3/uL (0.83-4.51); Absolute Neutrophil Count 5.7 X10^3/uL (2.0-7.7); Basophil# 0.05 X10^3/uL; Basophil% 0.6 % (0-1); Eosinophil# 0.17 X10^3/uL; Eosinophils% 2.1 % (0-5); Hematocrit 39.5 % (40-54); Hemoglobin 12.4 g/dL (13.0-16.5); Lymphocyte # 0.59 X10^3/ul (4.0); Lymphocyte % 7.5 % (19-41); Mean Corp Hgb Conc 31.4 g/dL (32-36); Mean Corpuscular Volume 95.6 fL (80-94); Mean Platelet Vol. 12.4 fl (6.2-12.0); Monocyte# 1.39 X10^3/uL; Monocyte% 17.6 % (0-10); NRBC Flagged by Analyzer 0 % (0-5); Neutrophil # 5.67 X10^3/uL (2.7-7.7); Neutrophil % 71.7 % (47-70); POSITIVE DIFFERENTIAL YES; Platelet Count 231 K/mm3 (150-450); RBC Distribution Width CV 15.2 % (11.6-14.6); RBC Distribution Width SD 53.1 fl (35.1-43.9); Red Blood Count 4.13 M/mm3 (4.6-6.2); White Blood Count 7.9 K/mm3 (4.4-11.0)
[2019-08-25 13:40] LABS: Differential Indicated SCAN CRITERIA MET
--- NOTE | 2019-08-25 14:36 | PCM.PN.HOSP ---
Patient Problems: Active and Suspected Problems CHF (congestive heart failure) (Acute) Pleural effusion (Acute) Reason for Visit: SOB Subjective: Overall breathing improved. Pt complains of pain and crackling sensation at thora sight. No CP. No LH/dizziness. LE edema improved. Vitals/I&O's: Vital Signs Temp Pulse Resp BP Pulse Ox 97.6 F L 74 18 122/68 H 96 08/25/19 09:46 08/25/19 09:46 08/25/19 09:46 08/25/19 09:46 08/25/19 10:50 Oxygen Flow Rate (L/min) [ 2 AMBULATION with Oxygen] Oxygen Delivery Method [3] Room Air Oxygen Delivery Method [2] Room Air Oxygen Delivery Method [1 ( Room Air Initial Baseline)] Oxygen Delivery Method Room Air Weight: 230 lb 2.601 oz Body Mass Index (BMI) 34.9 Orthostatic Vital Signs Start: 08/25/19 04:53 Freq: q24h Status: Active Protocol: Activity Type Activity Date Activity User E-Sign Co-Sign Detail Recorded Client Recorded Date Recorded By Document 08/25/19 04:53 [facility] [id number] 08/25/19 04:58 [facility] 08/25/19 04:53 Orthostatic Vitals Standing -Blood Pressure (90/60-120/80) 121/69 H -Extremity Use Right Arm -Pulse Rate (60-100) 72 Sitting -Blood Pressure (90/60-120/80) 117/69 -Extremity Use Right Arm -Pulse Rate (60-100) 71 Lying -Blood Pressure (90/60-120/80) 112/67 -Extremity Use Right Arm -Pulse Rate (60-100) 70 Intake and Output for Last 24 Hours 08/23/19 08/24/19 08/25/19 23:59 23:59 23:59 Intake Total 240 / 240 1070 / 1070 220 / 220 Output Total 2825 / 2825 5345 / 5345 1675 / 1675 Balance -2585 / -2585 -4275 / -4275 -1455 / -1455 General: Alert, Oriented x3, Cooperative HEENT: Atraumatic, PERRLA, EOMI, Normocephalic Neck: Supple, No JVD, Negative Carotid Bruits Lungs: Clear to auscultation, Diminished - right lung Cardiovascular: Regular rate, No murmurs Abdomen: Bowel Sounds Present, Soft, Non Tender Extremities: No edema, Capillary Refill Less than 3 Seconds Skin: No rashes, No breakdown Musculoskeletal: No Tenderness to Palpation of Joints or Extremities Neurological: Cranial nerves II-XII grossly intact Psych/Mental Status: Normal Affect, Appropriate, Alert and oriented to time, place, person, mood and affect Microbiology Past 72 Hours 08/24/19 12:45 Fluid - Pleural (Lung) Gram Stain - Final 08/24/19 12:45 Fluid - Pleural (Lung) Body Fluid Culture - Preliminary No growth-Final to follow Laboratory Results 08/24/19 12:45: Fluid Neutrophils 3, Fluid Lymphocytes 91, Fluid Monocytes 6 08/24/19 17:07: POC Glucose 117 H 08/24/19 21:23: POC Glucose 191 H 08/25/19 05:05: WBC 7.9, RBC 4.13 L, Hgb 12.4 L, Hct 39.5 L, MCV 95.6 H, MCH 30.0, MCHC 31.4 L, RDW Std Deviation 53.1 H, RDW Coeff of Ena 15.2 H, Plt Count 231, MPV 12.4 H, Immature Gran % (Auto) 0.500, Neut % (Auto) 71.7 H, Lymph % (Auto) 7.5 L, [place] % (Auto) 17.6 H, Eos % (Auto) 2.1, Baso % (Auto) 0.6, Absolute Neuts (auto) 5.7, Absolute Lymphs (auto) 0.59 L, Nucleated RBC % 0 08/25/19 05:50: Sodium 138, Potassium 3.5, Chloride 102, Carbon Dioxide 26.0, Anion Gap 10, BUN 22 H, Creatinine 1.44 H, Estim Creat Clear Calc 47.17, Est GFR (MDRD) Af Amer 62, Est GFR (MDRD) Non-Af 51 L, BUN/Creatinine Ratio 15.3, Glucose 132 H, Calcium 8.9, Phosphorus 3.1, Magnesium 1.8, Total Bilirubin 1.40 H, AST 17, ALT 17, Alkaline Phosphatase 265 H, Total Protein 6.8, Albumin 2.9 L, Globulin 3.9, Albumin/Globulin Ratio 0.7 L, Triglycerides 75, Cholesterol 102, LDL Cholesterol 56, VLDL Cholesterol 15, HDL Cholesterol 31 L 08/25/19 05:50: Hemoglobin A1c 6.1 H 08/25/19 06:39: POC Glucose 130 H Current Medications Aspirin (Ecotrin) 81 mg PO DAILY@0800 [facility] Last Admin: 08/25/19 05:54 Dose: 81 mg Documented by: Atenolol (Tenormin (Beta Augustine)) 25 mg PO BID [facility] Last Admin: 08/25/19 09:47 Dose: 25 mg Documented by: Atorvastatin Calcium (Lipitor) 10 mg PO QHS [facility] Last Admin: 08/24/19 21:32 Dose: 10 mg Documented by: Dextrose (D50w Syringe) 0 gm IV X1 PRN; Protocol PRN Reason: Hypoglycemia Furosemide (Lasix) 20 mg IV Q12 [facility] Last Admin: 08/25/19 09:46 Dose: 20 mg Documented by: Glucagon () 1 mg IM .X1 PRN PRN Reason: Hypoglycemia Sodium Chloride () 500 mls @ 15 mls/hr IV PRN PRN PRN Reason: Blood Transfusion Sodium Chloride () 250 mls @ 15 mls/hr IV .[id number] PRN PRN Reason: Saline Flush Sodium Chloride () 250 mls @ 15 mls/hr IV .[id number] PRN PRN Reason: Additional IVPB Infusion Insulin Human Lispro (Humalog Kwikpen (Bkc)) 0 unit SC ACHS [facility]; Protocol Last Admin: 08/25/19 11:27 Dose: 2 units Documented by: Linagliptin (Tradjenta) 5 mg PO DAILY [facility] Last Admin: 08/25/19 09:47 Dose: 5 mg Documented by: Lisinopril (Zestril) 40 mg PO DAILY [facility] Last Admin: 08/25/19 05:54 Dose: 40 mg Documented by: Metformin HCl (Glucophage) 500 mg PO BIDCM [facility] Last Admin: 08/25/19 09:47 Dose: 500 mg Documented by: Nutritional Formula (Lactose Free) (Glucerna Shake) 120 ml PO 4X/DAY [facility] Last Admin: 08/25/19 13:45 Dose: 120 ml Documented by: Oxycodone HCl (Oxyir) 5 mg PO Q4H PRN PRN PRN Reason: Pain Score 6-10/10 Last Admin: 08/24/19 20:15 Dose: 5 mg Documented by: Potassium Chloride (K-Dur) 20 meq PO BIDCM [facility] Last Admin: 08/25/19 09:46 Dose: 20 meq Documented by: Sodium Chloride () 10 - 40 ml IV UD PRN PRN Reason: SALINE FLUSH Last Admin: 08/25/19 09:47 Dose: 10 ml Documented by: STROKE Vital Signs/Narrative: Vital Signs Pulse Ox Pulse Ox Pulse Ox 08/25/19 10:50 87 93 96 Medical Necessity - Tobacco Use Smoking Status: Never smoker Tobacco Use: Non-smoker Assessment/Plan All Active Problems CHF (congestive heart failure) (Acute) Pleural effusion (Acute) Chest tightness (Acute) Sinus tachycardia (Acute) SOB (shortness of breath) (Acute) TMJ arthralgia (Acute) Nausea and vomiting in adult (Acute) 1. Acute diastolic CHF - no prior. Echo with EF 65% and stage 2 diastolic dysfunction, RVSP 22 mmHg. Thoracentesis yesterday 1400+cc out: transudative. Pulm following. CT chest after thora per pulm shows bronchiectasis and calcifications concerning for mesothelioma. he has asbestos exposure hx. also heavy metal exposure hx. -still some hypoxia on ambulation. continue diuresis. -AM CXR pending. 2. Suspect CKDIII - trend BMP. continues to improve with diuresis. 3. HTN - continue home meds 4. Dmt2 - hold orals. SSI. a1c 6.1. 5. HLD - continue Statin DVT ppx: held for thora. DC planning: pt would like to be completely off o2 prior to going home. suspect home with no PT needs at dc. Follow up with Pulm and Cardio. This patient was seen by Omar williamson PA-C under the supervision of Dr. Day
[2019-08-25 16:25] LABS: Bedside Glucose 123 mg/dL (70-110)
[2019-08-25 16:56] LABS: Hematocrit 40.9 % (40-54)
[2019-08-25] MEDS: Atorvastatin Calcium 10 MG Tablet PO (21:17)
[2019-08-25 21:46] LABS: Bedside Glucose 124 mg/dL (70-110)
[2019-08-26 03:00] VITALS: PULSE 80
[2019-08-26 03:15] VITALS: BP 110/57; PULSE 77; RESP 18; TEMP 36.7; O2SAT 97
--- NOTE | 2019-08-26 05:25 | RAD_ITS ---
STUDY: X-RAY CHEST REASON FOR EXAM: Male, 74 years old. RIGHT PLEURAL EFFUSION, DYSPNEA TECHNIQUE: PA and lateral views of the chest. COMPARISON: 25 Aug 2019 FINDINGS: Right lower lobe small moderate layering effusion with associated atelectasis and airspace disease is present. There is no demonstrated pleural abnormality. Normal size heart. Normal mediastinum and ruthy. Normal visualized pulmonary arteries. Normal visualized aortic arch and descending thoracic aorta. Normal visualized thoracic spine. Normal visualized ribs, clavicles, and shoulders. There is no demonstrated abnormality of the visualized soft tissue structures of the upper abdomen. RAD/Chest PA and Lateral IMPRESSION: Similar appearing exam with small to moderate layering effusion and right lower lung atelectasis/airspace disease. Electronically Signed: Zay Park DO at 10:24 EDT , Service support ,
[2019-08-26 06:35] LABS: Bedside Glucose 117 mg/dL (70-110)
[2019-08-26 06:58] LABS: Hematocrit 43.6 % (40-54); Hemoglobin 13.8 g/dL (13.0-16.5); Mean Corp Hgb Conc 31.7 g/dL (32-36); Mean Corpuscular Hgb 29.6 pg (27.0-32.0); Mean Corpuscular Volume 93.4 fL (80-94); Mean Platelet Vol. 11.5 fl (6.2-12.0); Platelet Count 281 K/mm3 (150-450); RBC Distribution Width CV 14.8 % (11.6-14.6); Red Blood Count 4.67 M/mm3 (4.6-6.2); White Blood Count 9.7 K/mm3 (4.4-11.0)
[2019-08-26 07:01] VITALS: PULSE 68
[2019-08-26 07:11] LABS: Anion Gap 8 (5-15); BUN 26 mg/dL (7-18); BUN/Creat Ratio 15.2 RATIO (10-20); Calcium,Total 9.5 mg/dL (8.5-10.1); Chloride 102 mmol/L (98-107); Creatinine, Serum 1.71 mg/dL (0.70-1.30); EST Glomerular Filtration Rate 42 mL/min (>60); Est Glom Filt Rate - Afr Amer 51 mL/min (>60); Estimated Creatinine Clearance 39.73 ml/min; Glucose 122 mg/dL (74-106); Potassium 4.1 mmol/L (3.5-5.1); Sodium Level 137 mmol/L (136-145)
--- NOTE | 2019-08-26 07:40 | PN_ITS ---
Patient Problems: Active and Suspected Problems CHF (congestive heart failure) (Acute) Pleural effusion (Acute) Subjective: Patient did okay overnight. Patient has diuresed and feels subjectively improved. Patient still required supplemental oxygen on ambulation. Patient reports some dry cough, but this is improved compared to previous. - Physical Exam Vitals/I&O's: Vital Signs Temp Pulse Resp BP Pulse Ox 36.7 C 68 18 110/57 L 97 08/26/19 03:15 08/26/19 07:01 08/26/19 03:15 08/26/19 03:15 08/26/19 03:15 Oxygen Flow Rate (L/min) [ 2 AMBULATION with Oxygen] Oxygen Delivery Method [3] Room Air Oxygen Delivery Method [2] Room Air Oxygen Delivery Method [1 ( Room Air Initial Baseline)] Oxygen Delivery Method Room Air Weight: 100.7 kg Body Mass Index (BMI) 34.9 Orthostatic Vital Signs Start: 08/25/19 04:53 Freq: q24h Status: Active Protocol: Activity Type Activity Date Activity User E-Sign Co-Sign Detail Recorded Client Recorded Date Recorded By Document 08/25/19 04:53 [facility] [id number] 08/25/19 04:58 [facility] 08/25/19 04:53 Orthostatic Vitals Standing -Blood Pressure (90/60-120/80) 121/69 H -Extremity Use Right Arm -Pulse Rate (60-100) 72 Sitting -Blood Pressure (90/60-120/80) 117/69 -Extremity Use Right Arm -Pulse Rate (60-100) 71 Lying -Blood Pressure (90/60-120/80) 112/67 -Extremity Use Right Arm -Pulse Rate (60-100) 70 Intake and Output for Last 24 Hours 08/24/19 08/25/19 08/26/19 23:59 23:59 23:59 Intake Total 1070 / 1070 940 / 940 Output Total 5345 / 5345 3475 / 3475 675 / 675 Balance -4275 / -4275 -2535 / -2535 -5 / -675 General: Alert, Oriented x3, Cooperative, No apparent distress, - - Obese. Speaking in full sentences. HEENT: Atraumatic, PERRLA, EOMI, Normocephalic, - - No scleral icterus or injection noted Oral: Moist Mucosa, No Gingival or Mucosal Lesions/ Ulcerations Neck: Supple, No Nodes, Trachea Midline, JVD, Right Lungs: No rhonchi, No wheeze, Diminished, Rales - Right base, - - Symmetric expansion. Cardiovascular: Regular rate, Normal S1, Normal S2, No murmurs, No rub noted, No Gallop Abdomen: Bowel Sounds Present, Soft, Non Tender, Non-Distended Extremities: No clubbing, No cyanosis, Edema - Improving Skin: No rashes, No breakdown Musculoskeletal: No Tenderness to Palpation of Joints or Extremities Lymphatic: No Cervical, Supraclavicular, or Inguinal Adenopathy Neurological: Cranial nerves II-XII grossly intact, Neuro grossly intact, Motor Exam 5/5 strength throughout Psych/Mental Status: Alert and oriented to time, place, person, mood and affect Microbiology Past 72 Hours 08/24/19 12:45 Fluid - Pleural (Lung) Gram Stain - Final 08/24/19 12:45 Fluid - Pleural (Lung) Body Fluid Culture - Preliminary No growth-Final to follow Laboratory Results 08/25/19 05:05: WBC 7.9, RBC 4.13 L, Hgb 12.4 L, Hct 39.5 L, MCV 95.6 H, MCH 30.0, MCHC 31.4 L, RDW Std Deviation 53.1 H, RDW Coeff of Ena 15.2 H, Plt Count 231, MPV 12.4 H, Immature Gran % (Auto) 0.500, Neut % (Auto) 71.7 H, Lymph % (Auto) 7.5 L, Antelope % (Auto) 17.6 H, Eos % (Auto) 2.1, Baso % (Auto) 0.6, Absolute Neuts (auto) 5.7, Absolute Lymphs (auto) 0.59 L, Nucleated RBC % 0 08/25/19 05:50: Hemoglobin A1c 6.1 H 08/25/19 16:22: POC Glucose 123 H 08/25/19 16:50: Hgb 13.0, Hct 40.9 08/25/19 21:13: POC Glucose 124 H 08/26/19 06:17: WBC 9.7, RBC 4.67, Hgb 13.8, Hct 43.6, MCV 93.4, MCH 29.6, MCHC 31.7 L, RDW Std Deviation 51.0 H, RDW Coeff of Ena 14.8 H, Plt Count 281, MPV 11.5 08/26/19 06:17: Sodium 137, Potassium 4.1, Chloride 102, Carbon Dioxide 27.0, Anion Gap 8, BUN 26 H, Creatinine 1.71 H, Estim Creat Clear Calc 39.73, Est GFR (MDRD) Af Amer 51 L, Est GFR (MDRD) Non-Af 42 L, BUN/Creatinine Ratio 15.2, Glucose 122 H, Calcium 9.5 08/26/19 06:32: POC Glucose 117 H Current Medications Aspirin (Ecotrin) 81 mg PO DAILY@0800 [facility] Last Admin: 08/25/19 05:54 Dose: 81 mg Documented by: Atenolol (Tenormin (Beta Augustine)) 25 mg PO BID [facility] Last Admin: 08/25/19 21:17 Dose: 25 mg Documented by: Atorvastatin Calcium (Lipitor) 10 mg PO QHS [facility] Last Admin: 08/25/19 21:17 Dose: 10 mg Documented by: Dextrose (D50w Syringe) 0 gm IV X1 PRN; Protocol PRN Reason: Hypoglycemia Furosemide (Lasix) 20 mg IV Q12 [facility] Last Admin: 08/25/19 21:18 Dose: 20 mg Documented by: Glucagon () 1 mg IM .X1 PRN PRN Reason: Hypoglycemia Sodium Chloride () 500 mls @ 15 mls/hr IV PRN PRN PRN Reason: Blood Transfusion Sodium Chloride () 250 mls @ 15 mls/hr IV .[id number] PRN PRN Reason: Saline Flush Sodium Chloride () 250 mls @ 15 mls/hr IV .[id number] PRN PRN Reason: Additional IVPB Infusion Insulin Human Lispro (Humalog Kwikpen (Bkc)) 0 unit SC ACHS [facility]; Protocol Last Admin: 08/26/19 06:39 Dose: Not Given Documented by: Linagliptin (Tradjenta) 5 mg PO DAILY [facility] Last Admin: 08/25/19 09:47 Dose: 5 mg Documented by: Lisinopril (Zestril) 40 mg PO DAILY [facility] Last Admin: 08/25/19 05:54 Dose: 40 mg Documented by: [facility] Last Admin: 08/25/19 16:23 Dose: 500 mg Documented by: Nutritional Formula (Lactose Free) (Glucerna Shake) 120 ml PO 4X/DAY [facility] Last Admin: 08/25/19 21:16 Dose: Not Given Documented by: Oxycodone HCl (Oxyir) 5 mg PO Q4H PRN PRN PRN Reason: Pain Score 6-10/10 Last Admin: 08/24/19 20:15 Dose: 5 mg Documented by: Potassium Chloride (K-Dur) 20 meq PO BIDCM [facility]EVIN Last Admin: 08/25/19 16:24 Dose: 20 meq Documented by: Sodium Chloride () 10 - 40 ml IV UD PRN PRN Reason: SALINE FLUSH Last Admin: 08/25/19 21:18 Dose: 10 ml Documented by: Clinical Impression(s) from Imaging Studies Chest X-Ray 08/25/19 10:20 IMPRESSION: Mildly increased right pleural effusion since previous study. Electronically Signed: Cecilio Vasquez DO at 14:44 EDT Tel [phone], Service support , Medical Necessity - Tobacco Use Smoking Status: Never smoker Tobacco Use: Non-smoker Assessment/Plan All Active Problems CHF (congestive heart failure) (Acute) Pleural effusion (Acute) Chest tightness (Acute) Sinus tachycardia (Acute) SOB (shortness of breath) (Acute) TMJ arthralgia (Acute) Nausea and vomiting in adult (Acute) RECOMMENDATIONS: 1. Continue with diuresis 2. Cardiac optimization 3. Likely okay to discharge if able to tolerate ambulation on room air with continued outpatient diuresis 4. Outpatient complete PFT and walking oximetry IMPRESSIONS: 1. New onset right transudative pleural effusion Clinical suspicion for CHF associated right pleural effusion. Patient did have significant 1.5 L drained from the chest. Encourage incentive spirometer. Continue aggressive diuresis and cardiac optimization. Patient should have a walking oximetry prior to discharge, but no other pulmonary work-up would be indicated as an inpatient. Likely okay to discharge once patient no longer requires supplemental oxygen on ambulation. 2. Acute diastolic congestive heart failure Patient does have a slightly elevated BNP. Echocardiogram shows preserved ejection fraction of 65% with stage II diastolic dysfunction and a right ventricular systolic pressure of 22 mmHg. RV was mildly dilated, which may be secondary to volume overload. Patient has had improvement in creatinine following diuresis indicating probable overload leading to decrease Starling forces. Would continue with diuresis empirically. Patient should be taught on low-sodium diet. Stress test was read as normal. 3. Suspected CKD 3/hypertension/diabetes mellitus type 2/hyperlipidemia/advanced age/obesity/occupational exposures Complicates care, management, recovery and prognosis. Okay to continue with baseline medications from my perspective. But pressure appears to be well controlled. Pericardial calcification may be secondary to asbestos exposure. No signs of mesothelioma from my perspective. Bronchiectasis noted on CT scan may be secondary to occupational exposure. Patient should have a complete PFT and walking oximetry as an outpatient. Inpatient E&M: 04272 Subs Hosp L2
[2019-08-26 09:15] VITALS: BP 102/56; PULSE 72; RESP 18; TEMP 36.6; O2SAT 93
[2019-08-26] MEDS: Glucerna Shake 120 ML LIQUID PO (09:34)
[2019-08-26] MEDS: Aspirin E.C. 81 MG Tablet PO (09:34)
[2019-08-26] MEDS: LINAGLIPTIN 5 MG TABLET PO (09:34)
[2019-08-26] MEDS: metFORMIN HCl 500 MG Tablet PO (09:34)
[2019-08-26] MEDS: Atenolol 25 MG Tablet PO (09:35)
[2019-08-26] MEDS: Furosemide 40 MG Tablet PO (09:58)
[2019-08-26] MEDS: guaiFENesin 1,200 MG Tablet 1200 MG PO (09:59)
[2019-08-26 10:08] VITALS: O2SAT 92; O2SAT 95
--- NOTE | 2019-08-26 10:08 | PCM.DC ---
- Discharge Diagnoses Current Active Problems: Current Active and Chronic Problems CHF (congestive heart failure) (Acute) Pleural effusion (Acute) You will use the following diet at home:: Calorie/Carbohydrate Controlled (specify 1200, 1400, etc) - 1800 effie / day, Cardiac - 2-3 g sodium daily, restrict fluid intake to 1800 cc per day. Your food should be the consistency of: Regular Your liquids should be the consistency of: Regular/Thin Discharge Activity: Return to Normal Activity Instructions: Thoracentesis Additional Instructions: You will need to check your weight daily. If you gain 2 lbs in 24 hours or 5 lbs in a week you will need to call your doctor with regards to instructions for the medication furosemide. You need to have a BMP (lab) in 1 week, and will need to contact your PCP to arrange this. You will need to have a chest x-ray prior to seeing the director game. Call either your PCP or the pulmonary office to arrange this. Allergies/Adverse Reactions: Allergies No Known Allergies Allergy (Verified 08/23/19 13:17) Medications to take at Discharge Simvastatin [Zocor] 20 mg PO QHS 05/21/15 metFORMIN HCl [Glucophage] 500 mg PO BID 05/21/15 Aspirin [Aspirin EC] 81 mg PO DAILY@0800 08/23/19 Atenolol [Tenormin] 25 mg PO BID 08/23/19 Cimetidine 400 mg PO BID 08/23/19 Linagliptin [Tradjenta] 5 mg DAILY 08/23/19 Lisinopril 40 mg PO DAILY 08/23/19 Furosemide [Lasix] 40 mg PO DAILY #30 tab 08/26/19 Potassium Chloride [K-Dur] 20 meq PO DAILY #30 tab 08/26/19 The following prescriptions were given: Potassium Chloride [K-Dur] 20 meq PO DAILY #30 tab Transmission Status: Pending to [email or web address] Furosemide [Lasix] 40 mg PO DAILY #30 tab Transmission Status: Pending to [email or web address] Primary Care Physician: Allen Morrison MD [Primary Care Provider] - Please follow up with your Primary Care Physician in: 1-2 weeks Test Results: Test results from this visit will be discussed in further detail at your follow-up appointment, if applicable. Please Follow Up With: Kristi Poole NP-C When: 2 weeks Please Follow Up With: Ivan Alex MD When: 3-4 weeks Proposed Discharge Date: 08/26/19
--- NOTE | 2019-08-26 14:02 | DS.PCM_ITS ---
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 Stable linear calcification most likely pericardial in nature. 2D TTE: Interpretation Summary The estimated ejection fraction is 65 %. Stage 2 diastolic dysfunction. Mildly dilated right ventricle. Trivial tricuspid valve insufficiency. Right ventricular systolic pressure estimated to be 22 mmHg. The inferior vena cava is dilated No collapse of the inferior vena cava. Compared to echo report dated 05/22/2015, no appreciable changes noted. RAD/Chest Insp/Exp 2 View IMPRESSION: Status post right thoracentesis. There is no evidence of pneumothorax. Mild residual pleural parenchymal changes are seen. CT/Chest without Contrast IMPRESSION: Minimal residual right pleural effusion with infiltration and/or atelectasis in the posteromedial segment of the right lower lobe. Small left pleural effusion with left basilar atelectasis. Pericardial calcification. Stress Echo: Interpretation Summary The estimated ejection fraction is 65 %. Normal, adequate, dobutamine echocardiogram. Negative for ischemia by EKG and echocardiographic criteria. No anginal symptoms noted. Rare PVC noted. Patient at baseline inferior lateral downward sloping ST depression with T wave inversion which did not appreciably change at peak exercise. Final LVEF is 75%. Decrease sensitivity due to poor echo windows requiring Definity agent. Patient tolerated the procedure well. The study was technically difficult. The study was technically limited. A transesophageal echocardiogram is recommended. Thoacentesis: US/Thoracentesis W US IMPRESSION: Ultrasound-guided right thoracentesis. 1470 cc carolee colored fluid removed. RAD/Chest 1 View (Portable) IMPRESSION: Mildly increased right pleural effusion since previous study. RAD/Chest PA and Lateral IMPRESSION: Similar appearing exam with small to moderate layering effusion and right lower lung atelectasis/airspace disease. Consults: Cyrus - pulmonology Operations: None Procedures: 2-D Echocardiogram, Stress test, Thoracentesis Summary of Care Provided: Hospital course: The patient is a 74 year old M with past medical history of hypertension, hyperlipidemia, type 2 diabetes, agent orange exposure, asbestos exposure, heavy metal exposure, who presented to the emergency room with complaints of increasing shortness of breath over 2 months. He was seen by his PCP and had an x-ray showing pleural effusion after which she was referred to a hot pond operator who was in the process of setting up outpatient pulmonary function test. The patient had worsening of his breathing and decided to come to the emergency room. In the ER he had a chest x-ray showing a right pleural effusion, and he had severe lower extremity pitting edema. The patient was admitted to the PCU and placed on telemetry for suspected underlying acute heart failure. He was placed on IV Lasix. The following morning he underwent a thoracentesis during which 1470 cc of carolee-colored fluid were removed. Pulmonology was consulted. The fluid appeared to be transudate. Pathology is pending. Fluid culture had no growth and no organisms seen, 4+ RBC, 1+ WBC. CT of the chest demonstrated some bronchiectasis and pericardial calcification. Pulmonology recommended continuing diuresis until the patient was able to be weaned off oxygen. He underwent a stress echo while he was here which demonstrated a preserved ejection fraction and no underlying ischemia. A 2D TTE was obtained and demonstrated a preserved ejection fraction, RVSP of 22 mmHg, stage II diastolic dysfunction, mildly dilated right ventricle, trivial TVI, dilated IVC. He had some shortness of breath and hypoxia with ambulation following the thoracentesis and repeat xrays were obtained which demonstrated some ongoing right-sided pleural effusion. Hemoglobin remained stable. Diuresis with IV lasix was continued. His LE edema completely resolved. The day of discharge he was completely weaned off oxygen both at rest and with activity. He was transitioned to oral Lasix. His BUN and creatinine are trending upward and he will need his renal function followed closely as an outpatient-repeat BMP in 1 week. He will also need a chest xray prior to follow up with pulm. He lost 21 lbs while here and had approx 9,920 cc of net output while here. The patient will need to follow-up with pulmonary medicine for further testing given his occupational exposures as listed above. He will need to follow-up with a sports physician in 3 to 4 weeks as well, he does not have a sports physician currently. He will need to follow-up with his PCP in 1 to 2 weeks. He was discharged home in stable condition. This patient was seen by Omar Hernandez PA-C under the supervision of Doctor Barb. [] - Physical Exam Vitals/I&O's: Vital Signs Temp Pulse Resp BP Pulse Ox 97.9 F 72 18 102/56 L 95 08/26/19 09:15 08/26/19 09:15 08/26/19 09:15 08/26/19 09:15 08/26/19 10:08 Oxygen Flow Rate (L/min) [ 2 AMBULATION with Oxygen] Oxygen Delivery Method [3] Room Air Oxygen Delivery Method [2] Room Air Oxygen Delivery Method [1 ( Room Air Initial Baseline)] Oxygen Delivery Method Room Air Weight: 222 lb 0.088 oz Body Mass Index (BMI) 34.9 Orthostatic Vital Signs Start: 08/25/19 04:53 Freq: q24h Status: Active Protocol: Activity Type Activity Date Activity User E-Sign Co-Sign Detail Recorded Client Recorded Date Recorded By Document 08/25/19 04:53 [facility] [id number] 08/25/19 04:58 [facility] 08/25/19 04:53 Orthostatic Vitals Standing -Blood Pressure (90/60-120/80) 121/69 H -Extremity Use Right Arm -Pulse Rate (60-100) 72 Sitting -Blood Pressure (90/60-120/80) 117/69 -Extremity Use Right Arm -Pulse Rate (60-100) 71 Lying -Blood Pressure (90/60-120/80) 112/67 -Extremity Use Right Arm -Pulse Rate (60-100) 70 Intake and Output for Last 24 Hours 08/24/19 08/25/19 08/26/19 23:59 23:59 23:59 Intake Total 1070 / 1070 940 / 940 400 / 400 Output Total 5345 / 5345 3475 / 3475 925 / 925 Balance -4275 / -4275 -2535 / -2535 -525 / -525 General: Alert, Oriented x3, Cooperative HEENT: Atraumatic, PERRLA, EOMI, Normocephalic Neck: Supple, No JVD, Negative Carotid Bruits Lungs: Clear to auscultation, Diminished - right lung diminished Cardiovascular: Regular rate, No murmurs Abdomen: Bowel Sounds Present, Soft, Non Tender Extremities: No edema, Capillary Refill Less than 3 Seconds Skin: No rashes, No breakdown Musculoskeletal: No Tenderness to Palpation of Joints or Extremities Neurological: Cranial nerves II-XII grossly intact Psych/Mental Status: Normal Affect, Appropriate, Alert and oriented to time, place, person, mood and affect Microbiology Past 72 Hours 08/24/19 12:45 Fluid - Pleural (Lung) Gram Stain - Final 08/24/19 12:45 Fluid - Pleural (Lung) Body Fluid Culture - Preliminary No growth-Final to follow Laboratory Results 08/25/19 16:22: POC Glucose 123 H 08/25/19 16:50: Hgb 13.0, Hct 40.9 08/25/19 21:13: POC Glucose 124 H 08/26/19 06:17: WBC 9.7, RBC 4.67, Hgb 13.8, Hct 43.6, MCV 93.4, MCH 29.6, MCHC 31.7 L, RDW Std Deviation 51.0 H, RDW Coeff of Ena 14.8 H, Plt Count 281, MPV 11.5 08/26/19 06:17: Sodium 137, Potassium 4.1, Chloride 102, Carbon Dioxide 27.0, Anion Gap 8, BUN 26 H, Creatinine 1.71 H, Estim Creat Clear Calc 39.73, Est GFR (MDRD) Af Amer 51 L, Est GFR (MDRD) Non-Af 42 L, BUN/Creatinine Ratio 15.2, Glucose 122 H, Calcium 9.5 08/26/19 06:32: POC Glucose 117 H Discharge Diet: Low fat/ Low Cholesterol, 2000 mg Sodium Diet - 2-3 g sodium daily, - - fluid restriction 1800 cc / day Discharge Activity: Return to Normal Activity Home Medications: Medications to take at Discharge Simvastatin [Zocor] 20 mg PO QHS 05/21/15 metFORMIN HCl [Glucophage] 500 mg PO BID 05/21/15 Aspirin [Aspirin EC] 81 mg PO DAILY@0800 08/23/19 Atenolol [Tenormin] 25 mg PO BID 08/23/19 Cimetidine 400 mg PO BID 08/23/19 Linagliptin [Tradjenta] 5 mg DAILY 08/23/19 Lisinopril 40 mg PO DAILY 08/23/19 Furosemide [Lasix] 40 mg PO DAILY #30 tab 08/26/19 Potassium Chloride [K-Dur] 20 meq PO DAILY #30 tab 08/26/19 Following Prescrptions Were Given to Patient: Potassium Chloride [K-Dur] 20 meq PO DAILY #30 tab Transmission Status: Received by [facility] Furosemide [Lasix] 40 mg PO DAILY #30 tab Transmission Status: Received by [facility] Primary Care Physician: Allen Morrison MD [Primary Care Provider] - Please follow up with your Primary Care Physician in: 1-2 weeks Please Follow Up With: Kristi Poole NP-C When: 2 weeks Please Follow Up With: Ivan Alex MD When: 3-4 weeks Patient Instructions: Thoracentesis Disposition: Home Minutes spent on discharge:: 35 Patient Condition:: Stable Medical Necessity - Tobacco Use Smoking Status: Never smoker Tobacco Use: Non-smoker Meaningful Use Info Meaningful Use Diagnoses (Choose all that apply): CHF - CHF MODESTO/ARB ordered at discharge?: Yes Documented LVEF (%): 65
[2019-08-27 11:48] LABS: Pathologist Comment/Body Fluid Reviewed
[2019-08-27 14:49] LABS: pH, Body Fluid 11254 7.5 (Not Estab.)
== END 2019-08-26 12:09 | disposition home or self-care (01) ==
LOC: ED 14:10 → PCU 16:27
PROVIDERS: Physician Assistant; Admitting Provider Internal Medicine; Emergency Provider Emergency Medicine; PCP Internal Medicine; Visit Provider Internal Medicine
DX: I13.0 Hypertensive heart and chronic kidney disease with heart failure and stage 1 through stage 4 chronic kidney disease, or unspecified chronic kidney disease (principal); I50.31 Acute diastolic (congestive) heart failure; E78.5 Hyperlipidemia, unspecified; E11.22 Type 2 diabetes mellitus with diabetic chronic kidney disease; N18.3 Chronic kidney disease, stage 3 (moderate); J47.9 Bronchiectasis, uncomplicated; K21.9 Gastro-esophageal reflux disease without esophagitis; Z77.090 Contact with and (suspected) exposure to asbestos; Z57.8 Occupational exposure to other risk factors; Z57.4 Occupational exposure to toxic agents in agriculture; Z79.899 Other long term (current) drug therapy; Z79.82 Long term (current) use of aspirin; Z79.84 Long term (current) use of oral hypoglycemic drugs
CPT/HCPCS: 32555; 36415; 71045; 71046; 71250; 80048; 80053; 80061; 82945; 82962; 83036; 83615; 83735; 83880; 83986; 84100; 84156; 84157; 84484; 85014; 85018; 85025; 85027; 85610; 85730; 87070; 87075; 87205; 88108; 88305; 88313; 89050; 93005; 93017; 93306; 93350; 94667; 96374; 96376; 97802; 99218; 99285; J7040; Q9957; A4216; C8928; C8929; G0378; J1940

== ENCOUNTER → 2019-09-10 11:52 | Outpatient (CLI) | payer MEDICARE, SELFPAY ==
[2019-08-23 17:03] VITALS: BMI 34.9
--- NOTE | 2019-09-10 12:00 | RAD_ITS ---
STUDY: X-RAY CHEST REASON FOR EXAM: Male, 74 years old. Follow up pleural effusion, patient has no complaints TECHNIQUE: PA and lateral views of the chest. COMPARISON: Comparison is made with prior study dated August 26, 2019. FINDINGS: Since prior study, there has been a decrease in the right pleural effusion with right basilar infiltration and/or atelectasis. Stable curvilinear calcification of the inferior aspect of the left ventricle. Normal mediastinum and ruthy. Normal visualized pulmonary arteries. There is atherosclerotic calcification of the aortic arch with tortuosity. There are diffuse degenerative changes of the visualized thoracic spine. Normal visualized ribs, clavicles, and shoulders. There is no demonstrated abnormality of the visualized soft tissue structures of the upper abdomen. RAD/Chest PA and Lateral IMPRESSION: Interval decrease in size of the pleural parenchymal changes at the right lung base. Residual changes persist. Electronically Signed: Shravan Dumas, at 13:52 EDT , Service support ,
== END ==
PROVIDERS: PCP Internal Medicine; Referring Provider Internal Medicine Critical Care Medicine; Visit Provider Internal Medicine Critical Care Medicine
DX: J90 Pleural effusion, not elsewhere classified (principal)
CPT/HCPCS: 71046

== ENCOUNTER → 2019-09-14 10:56 | Outpatient (CLI) | payer MEDICARE, SELFPAY ==
[2019-09-13 07:56] VITALS: BMI 34.9
--- NOTE | 2019-09-16 08:26 | PFT_ITS ---
INTRODUCTION: The patient is a 74-year-old male that presents for pulmonary function studies secondary to a diagnosis of shortness of breath. Respiratory therapy reports good patient effort. Bronchodilators were used during testing. INTERPRETATION: Forced expiration spirometry demonstrates no evidence of a large airways obstructive ventilatory defect. There was no significant response to aerosolized bronchodilators, based upon strict ATS criteria. Spirograms are of good quality and plateau normally. Body plethysmography was performed and reveals a decreased TLC to 5.0 L, 75% of predicted, indicative of a mild restrictive ventilatory impairment. The remainder of the lung volumes are symmetrically reduced. Diffusing capacity by single breath CO is severely re duced to 54% of predicted. IMPRESSION: Mild restrictive ventilatory impairment with disproportionate severe reduction in diffusing capacity.
== END ==
PROVIDERS: PCP Internal Medicine; Referring Provider Nurse Practitioner Acute Care; Visit Provider Nurse Practitioner Acute Care
DX: R06.02 Shortness of breath (principal)
CPT/HCPCS: 94060; 94726; 94729

== ENCOUNTER → 2019-09-18 07:30 | Outpatient (CLI) | payer MEDICARE, SELFPAY ==
[2019-09-13 07:56] VITALS: BMI 34.9
[2019-09-18 08:15] VITALS: PULSE 109; PULSE 73; PULSE 74; PULSE 86; PULSE 87; PULSE 89; PULSE 90; O2SAT 93; O2SAT 94; O2SAT 96
--- NOTE | 2019-09-18 14:30 | PCM.PSN.6M ---
PSN 6 Minute Walk Test - 6 Minute Walk Test 6 Minute Walk Test: 6 Minute Walk Test PSN:6-Minute Walk Test Start: 09/18/19 08:15 Freq: Status: Active Protocol: RESP.6MINW Document 09/18/19 08:15 MOISESLEROY (Rec: 09/18/19 08:18 MARCOS [id number]) 6 Minute Walk Test Date Performed 09/18/19 Time Performed 08:00 Height 5 ft 11 in Weight: 92.079 kg Weight in Pounds 203.[address]: Kristi Poole Assistive device used: None Pre-test Oxygen Delivery Method Room Air Pulse Ox (%) 94 Pulse Rate (60-100 beats/min) 74 Dyspnea Ioana Scale (0-10) 0 Exertion Ioana Scale (6-20) 6 1st minute Oxygen Delivery Method Room Air Pulse Ox (%) 93 Pulse Rate (60-100 beats/min) 86 2nd minute Oxygen Delivery Method Room Air Pulse Ox (%) 93 Pulse Rate (60-100 beats/min) 87 3rd minute Oxygen Delivery Method Room Air Pulse Ox (%) 94 Pulse Rate (60-100 beats/min) 86 4th minute Oxygen Delivery Method Room Air Pulse Ox (%) 93 Pulse Rate (60-100 beats/min) 90 5th minute Oxygen Delivery Method Room Air Pulse Ox (%) 93 Pulse Rate (60-100 beats/min) 89 6th minute Oxygen Delivery Method Room Air Pulse Ox (%) 94 Pulse Rate (60-100 beats/min) 109 H Dyspnea Ioana Scale (0-10) 1 Exertion Ioana Scale (6-20) 13 Post-test Oxygen Delivery Method Room Air Pulse Ox (%) 96 Pulse Rate (60-100 beats/min) 73 Full Laps Walked 14 Partial Lap, Number of Tiles Walked 53 Total Distance Walked (ft) 879 - Interpretation Interpretation: The patient was able to ambulate 879 feet over the course of 6 minutes on room air with no assistive devices or breaks. The patient experienced no significant desaturation or tachycardia during testing. These findings are consistent with a musculoskeletal limitation exercise tolerance. - Recommendations Recommendations: No supplemental oxygen is indicated at this time.
== END ==
PROVIDERS: PCP Internal Medicine; Referring Provider Nurse Practitioner Acute Care; Visit Provider Nurse Practitioner Acute Care
DX: R06.02 Shortness of breath (principal)
CPT/HCPCS: 94618

== ENCOUNTER → 2019-10-01 20:00 | Outpatient (CLI) | payer MEDICARE, SELFPAY ==
[2019-09-13 07:56] VITALS: BMI 34.9
== END ==
PROVIDERS: PCP Internal Medicine; Referring Provider Nurse Practitioner Acute Care; Visit Provider Nurse Practitioner Acute Care
DX: G47.33 Obstructive sleep apnea (adult) (pediatric) (principal)
CPT/HCPCS: 95810

== ENCOUNTER → 2019-11-06 20:00 | Outpatient (CLI) | payer MEDICARE, SELFPAY ==
[2019-10-12 12:41] VITALS: BMI 34.9
== END ==
PROVIDERS: PCP Internal Medicine; Visit Provider Nurse Practitioner Acute Care
DX: G47.33 Obstructive sleep apnea (adult) (pediatric) (principal)
CPT/HCPCS: 95811

== ENCOUNTER → 2019-11-20 11:21 | Outpatient (CLI) | payer MEDICARE, SELFPAY ==
[2019-10-12 12:41] VITALS: BMI 34.9
== END ==
PROVIDERS: PCP Internal Medicine; Visit Provider Nurse Practitioner Acute Care
DX: G47.33 Obstructive sleep apnea (adult) (pediatric) (principal)

== ENCOUNTER → 2019-11-22 13:00 | Outpatient (CLI) | payer MEDICARE, SELFPAY ==
[2019-10-12 12:41] VITALS: BMI 34.9
== END ==
PROVIDERS: PCP Internal Medicine; Visit Provider Nurse Practitioner Acute Care
DX: G47.33 Obstructive sleep apnea (adult) (pediatric) (principal)

== ENCOUNTER 2020-03-08 22:45 | Inpatient (IN) | payer MEDICARE, SELFPAY ==
[2019-12-20 05:52] VITALS: BMI 28.8
[2020-03-08 22:46] VITALS: BP 96/60; PULSE 82; RESP 18; TEMP 35.9; O2SAT 98; BMI 28.2
[2020-03-08 22:51] VITALS: BP 96/82; PULSE 81; RESP 17; O2SAT 98
--- NOTE | 2020-03-08 23:18 | EKG12_ITS ---
Test Reason : HYPOTENSIN Blood Pressure : / mmHG Vent. Rate : 081 BPM Atrial Rate : 081 BPM P-R Int : 174 ms QRS Dur : 072 ms QT Int : 400 ms P-R-T Axes : 036 060 253 degrees QTc Int : 464 ms Normal sinus rhythm T wave abnormality, consider inferolateral ischemia Prolonged QT Abnormal ECG Confirmed by LILA LOO, AMADOU ([id number]), supervising editor trailer JORGE OLIVER ([id number]) on 03/12/2020 9:31:56 AM Referred By: Scott Sheridan Confirmed By:AMADOU SHARP MD
[2020-03-08] MEDS: 0.9% Normal Saline 1,000 ML 1000 ML IV (23:26)
[2020-03-08 23:27] VITALS: BP 83/52; PULSE 80; RESP 14; O2SAT 98
--- NOTE | 2020-03-08 23:34 | CT_ITS ---
STUDY: CT CERVICAL SPINE WITHOUT CONTRAST REASON FOR EXAM: Male, 74 years old. DIZZINESS WITH 2 FALLS. HX OF CHF, HTN, DM RADIATION DOSAGE (If Supplied By Facility): CTDIvol = ( 26.64 ) mGy, DLP = ( 1173.49 ) mGycm TECHNIQUE: High resolution transaxial imaging was performed without contrast material. Sagittal and coronal images were reconstructed. Individualized dose optimization techniques were used for this CT. COMPARISON: None FINDINGS: Normal craniovertebral junction. Normal anterior atlantoaxial articulation. Normal odontoid process. There is straightening of the normal cervical lordosis. Vertebral body heights and alignment is maintained. There is diffuse facet arthrosis. Degenerative disc changes most prominent at C6-C7. No acute fracture or subluxation. Normal visualized soft tissue structures. CT/Spine Cervical without Contras IMPRESSION: Negative unenhanced CT examination of the cervical spine for acute fracture. Electronically Signed: Derick Louis, at 1:00 EST Tel , Service support ,
--- NOTE | 2020-03-08 23:36 | ED.DCSUM_ITS ---
- ER Visit Summary Date of Service: 03/08/20 Chief Complaint: Weak and falls x2 History of Present Illness: The patient is a 74 M History of CHF, igu-mtgmdzl-tilhzdimt diabetes and renal insufficiency. Patient denies any blood thinner use. States had low blood pressure last several days. [place] weak and has fallen several times. He did strike the bridge of his nose causing abrasion. Thinks he may have passed out. Also complaining of mild neck pain. Also states that he has had bloody diarrhea. Subjectively of fever and sweats. No new shortness of breath. No new cough. He denies nausea or vomiting. Denies hematemesis. He is on iron and has dark stools chronically. Physical Examination: Older male initial vital signs he is hypotensive with a blood pressure 96/87. Pulse ox 98%. He is afebrile. He does not look septic or toxic. He does look pale. HEENT exam is a minor abrasion to the proximal bridge of his nose but no deformity or bleeding of the nose. Pupils are round reactive light. Moist mucous membranes. Dentition intact. No other facial trauma. Scalp nontender no hematoma. Trachea midline. C-spine he complains of diffuse neck pain but not a specific area. Lungs clear to auscultation bilaterally. Heart regular rhythm rate about 80. Chest wall nontender. Abdomen soft nontender. Normal bowel sounds no peritoneal signs. No distention no signs of obstruction. Pelvic girdle intact. Hips are neither shortened nor rotated. He is moving all 4 extremities. They are nontender. No deformity. Normal cage maker strength. Normal dorsi plantar flexion. Back nontender. No signs of trauma. No spine tenderness. Neurologically is awake and alert. He is answering questions and following commands. He has no focal motor weakness. I did also do a rectal exam and placed in a black stool now he is on iron but this could also be secondary to upper GI bleed. There is no gross blood or clots. The rectal exam was nontender without any masses. Normal rectal tone. Test Results: Chest x-ray portable 1 view turbid by myself shows right pleural effusion which she has had before. Otherwise normal cardiac silhouette and bony structures. Normal mediastinum. No other acute abnormality. This was also read by the radiologist. CAT scan of the brain shows no acute abnormality but I am awaiting the radiologist final interpretation. CAT scan of the C-spine shows chronic degenerative changes of C5, C6 and C7. I do not see any acute fractures. Again awaiting for radiologist final interpretation. EKG shows normal sinus rhythm rate of 81. Prolonged QT interval. Unchanged from prior EKG of this year. CBC shows a white count of 9. Hemoglobin 8.2. Previously hemoglobin was 13.8 this is consistent with acute anemia and a suspected acute GI bleed. Chemistries show a BUN of 58 creatinine of 1.79. Prior creatinine was 1.7. Normal gap. 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 UA unremarkable. Troponin normal. Lactate 2.1. Emergency Department Course and Treatment: Older male with hypotension and fall. Due to his head injury and reported loss of consciousness and neck pain those were received CAT scans. Will be worked up for his hypotension. Will be typed and screened due to his dark stool which may be from iron versus a GI bleed and anemia. Due to the patient's anemia and suspected GI bleed his type and screen was changed to a type and cross and will be started on 1 unit of packed red blood cells. Also given a dose of Protonix IV for potential upper GI bleed. Treatment Plan: Hospitalist on page to discuss admission. I will attempt to speak to the patient's also. Disposition: Admission Impression: Acute hypotension secondary to acute anemia secondary to acute GI bleed Transfuse 1 unit packed red blood cells Acute fall with nasal abrasion and neck pain History of CHF Acute on chronic right pleural effusion This note was generated with [employer] dictation software. It may contain incorrect words, spelling, and punctuation that were not noted in review of the chart prior to signing ED Disposition - Plan for ED Patient: Referrals: Allen Morrison MD [Primary Care Provider] -
--- NOTE | 2020-03-08 23:46 | RAD_ITS ---
STUDY: X-RAY CHEST REASON FOR EXAM: Male, 74 years old. dizziness. fell 2 x at home yesterday. TECHNIQUE: AP COMPARISON: 09/10/2019 FINDINGS: Persistent blunting of the right costophrenic angle and hemidiaphragm. Left lung is clear. Normal size heart. Normal mediastinum and ruthy. Normal visualized pulmonary arteries. There is atherosclerotic calcification of the aortic arch. Normal visualized thoracic spine. Normal visualized ribs, clavicles, and shoulders. There is no demonstrated abnormality of the visualized soft tissue structures of the upper abdomen. RAD/Chest 1 View (Portable) IMPRESSION: Persistent obscuration of the right costophrenic angle likely due to underlying right pleural effusion and associated atelectasis. No significant radiographic change. Electronically Signed: Derick Louis, at 0:01 EST Tel , Service support ,
--- NOTE | 2020-03-08 23:55 | CT_ITS ---
STUDY: CT BRAIN WITHOUT CONTRAST REASON FOR EXAM: Male, 74 years old. DIZZINESS WITH 2 FALLS. HX OF CHF, HTN, DM RADIATION DOSAGE (If Supplied By Facility): CTDIvol = ( 44.99 ) mGy, DLP = ( 796.11 ) mGycm TECHNIQUE: Transaxial CT imaging of the brain was performed without administration of intravenous contrast material. Individualized dose optimization techniques were used for this CT. COMPARISON: CT head from 02/27/2018 FINDINGS: Normal soft tissue structures. Normal calvarium. There is mild cerebral atrophy with widening of the extra-axial spaces and ventricular dilatation. There are areas of decreased attenuation within the white matter tracts of the supratentorial brain, consistent with microvascular disease changes. Normal basal ganglia and thalami. Normal brainstem. Normal cerebellum. Stable extra-axial calcification along the left posterior parietal calvarium measuring 1 cm likely calcified meningioma. There is no intracranial hemorrhage. There are no findings of an acute ischemic infarction. There is mucosal thickening in the maxillary sinuses. CT/Brain/Head without Contrast IMPRESSION: Chronic involutional changes of the brain. No interval change. Electronically Signed: Derick Louis, at 0:55 EST Tel , Service support ,
[2020-03-09] VITALS (38 sets, daily range): BP systolic 80–107; BP diastolic 46–83; PULSE 66–96; RESP 15–28; TEMP 36.1–38.2; O2SAT 94–100; BMI 27.3
[2020-03-09 00:08] LABS: Mucous, Urine 0 SEEN /hpf (<or=2+); Squamous Epithelial Cells - UA 0 SEEN /hpf (0-5); White Blood Cells 0 SEEN /hpf (0-5)
[2020-03-09 00:21] LABS: Absolute Lymphocyte Count 0.76 X10^3/uL (0.83-4.51); Absolute Neutrophil Count 7.4 X10^3/uL (2.0-7.7); Basophil# 0.04 X10^3/uL; Basophil% 0.4 % (0-1); Eosinophils% 1.1 % (0-5); Hematocrit 25.5 % (40-54); Hemoglobin 8.2 g/dL (13.0-16.5); Lymphocyte # 0.76 X10^3/ul (4.0); Lymphocyte % 8.2 % (19-41); Mean Corp Hgb Conc 32.2 g/dL (32-36); Mean Corpuscular Hgb 29.2 pg (27.0-32.0); Mean Corpuscular Volume 90.7 fL (80-94); Mean Platelet Vol. 11.1 fl (6.2-12.0); Monocyte# 0.85 X10^3/uL; Monocyte% 9.2 % (0-10); NRBC Flagged by Analyzer 0 % (0-5); Neutrophil # 7.38 X10^3/uL (2.7-7.7); Neutrophil % 79.8 % (47-70); Platelet Count 341 K/mm3 (150-450); RBC Distribution Width CV 13.7 % (11.6-14.6); RBC Distribution Width SD 45.5 fl (35.1-43.9); Red Blood Count 2.81 M/mm3 (4.6-6.2); White Blood Count 9.3 K/mm3 (4.4-11.0)
[2020-03-09 00:23] LABS: Color, Urine Yellow (Yellow); Urine Clarity Clear (Clear)
[2020-03-09 00:24] LABS: Glucose, Dipstick Normal (Normal); Ketone-Dipstick Negative (Negative); Specific Gravity, Urine 1.015 (1.002-1.030); Urine Bilirubin Dipstick Negative (Negative)
[2020-03-09 00:25] LABS: Leukocyte Esterase-Dipstick Negative /ul (Negative); Nitrite-Dipstick Negative (Negative); Occult Blood-Urine Negative /ul (Negative); Protein-Dipstick 15 mg/dl (Negative); Urine Urobilinogen Normal (Normal)
[2020-03-09 00:33] LABS: Bacteria RARE /hpf (None Seen); Red Blood Cells-Urine 0-5 SEEN /hpf (0-5)
[2020-03-09 00:46] LABS: Anion Gap 7 (5-15); BUN 58 mg/dL (7-18); BUN/Creat Ratio 32.4 RATIO (10-20); Calcium,Total 7.8 mg/dL (8.5-10.1); Chloride 112 mmol/L (98-107); Creatinine, Serum 1.79 mg/dL (0.70-1.30); EST Glomerular Filtration Rate 40 mL/min (>60); Est Glom Filt Rate - Afr Amer 48 mL/min (>60); Estimated Creatinine Clearance 39.15 ml/min; Glucose 155 mg/dL (74-106); Potassium 4.8 mmol/L (3.5-5.1); Sodium Level 140 mmol/L (136-145)
[2020-03-09 00:48] LABS: Lactic Acid 2.1 mmol/L (0.4-1.9)
[2020-03-09 01:18] LABS: International Normalized Ratio 1.1; Prothrombin Time (Protime)PT. 13.9 SECONDS (11.7-14.9)
--- NOTE | 2020-03-09 01:29 | HP.PCM_ITS ---
Problem List (1) JOANNA (obstructive sleep apnea) Status: Chronic (2) CHF (congestive heart failure) Status: Chronic Qualifiers: Heart failure type: unspecified Heart failure chronicity: unspecified Qualified Code(s): I50.9 - Heart failure, unspecified (3) Pleural effusion Status: Chronic (4) Snoring Status: Chronic (5) Hyperlipidemia Status: Chronic (6) Diabetes mellitus, type II Status: Chronic (7) Family history of cardiovascular disease Status: Chronic (8) TMJ arthralgia Status: Chronic (9) Hypertension Status: Chronic (10) Gastroesophageal reflux disease Status: Chronic (11) Cerumen impaction Status: Chronic Qualifiers: Laterality: bilateral Qualified Code(s): H61.23 - Impacted cerumen, bilateral History of Present Illness Date of Admission: 03/09/20 Chief Complaint: light headedness The patient is a 74 year old M with a significant history of heart failure with preserved ejection fraction; and diabetes mellitus who presents to the emergency department with 3-day history of lightheadedness. In the last 24 hours patient fell 2 times because of lightheadedness.. With his first fall he sustained aspiration on his nasal bridge. Also patient reports bloody diarrhea. Also he reports hemoptysis. He denies hematemesis. Denies any nausea or vomiting. He denies abdominal pain. Reportedly paramedics found him to be orthostatic positive. Emergent department doctor reports black stool. Of note patient reports taking iron. Patient had colonoscopy many years ago. Past Medical History Past Medical History (Chronic Problems): Chronic Problems (Last Reviewed 10/12/19 @ 12:40 by Enma Allen) JOANNA (obstructive sleep apnea) (Chronic) CHF (congestive heart failure) (Chronic) Pleural effusion (Chronic) Snoring (Chronic) Hyperlipidemia (Chronic) Diabetes mellitus, type II (Chronic) Family history of cardiovascular disease (Chronic) TMJ arthralgia (Chronic) Hypertension (Chronic) Gastroesophageal reflux disease (Chronic) Cerumen impaction (Chronic) Medical History: Medical History (Last Reviewed 03/09/20 @ 02:[address] Scott Sheridan MD) CHF (congestive heart failure) (Chronic) I50.9 Pleural effusion (Chronic) J90 Chest tightness (Inactive) R07.89 TMJ (temporomandibular joint syndrome) (Inactive) M26.609 right side Snoring (Chronic) R06.83 Hyperlipidemia (Chronic) E78.5 Sinus tachycardia (Inactive) R00.0 Diabetes mellitus, type II (Chronic) E11.9 SOB (shortness of breath) (Inactive) R06.02 Family history of cardiovascular disease (Chronic) Z82.49 TMJ arthralgia (Chronic) M26.629 Nausea and vomiting in adult (Inactive) R11.2 Hypertension (Chronic) I10 Gastroesophageal reflux disease (Chronic) K21.9 Cerumen impaction (Chronic) H61.20 Allergies No Known Allergies Allergy (Verified 03/08/20 22:51) Home Medications: Ambulatory Orders Medication Instructions Recorded Simvastatin [Zocor] 20 mg PO QHS 05/21/15 metFORMIN HCl [Glucophage] 500 mg PO BID 05/21/15 Aspirin [Aspirin EC] 81 mg PO DAILY@0800 08/23/19 Atenolol [Tenormin] 25 mg PO BID 08/23/19 Cimetidine 400 mg PO BID 08/23/19 Linagliptin [Tradjenta] 5 mg DAILY 08/23/19 lisinopril 40 mg tablet 40 mg PO DAILY tab 09/13/19 Furosemide [Lasix] 20 mg PO DAILY 03/09/20 Surgical History: Surgical History (Last Reviewed 03/09/20 @ 02:[address] Scott Sheridan MD) History of hernia repair Z98.890, Z87.19 Surgical History: herniorrhaphy - Abdominal ventral hernia with mesh Psychiatric History: No pertinent psych hx Smoking Status: Never smoker - *Family History Maternal Family History: Family History (Last Reviewed 03/09/20 @ 02:[address] Scott Sheridan MD) Other Cancer Heart disease Review of Systems Constitutional: Denies: Chills, Fever, Weight Change HEENT: Denies: Head Aches, Sinus Congestion, Sinus Drainage Cardiovascular: Reports: Light Headedness. Denies: Chest Pain, Palpitations Respiratory: Reports: Cough, Hemoptysis Gastrointestinal: Reports: Hematochezia. Denies: Abdominal Pain, Nausea, Vomiting Genitourinary: Denies: Dysuria Musculoskeletal: Denies: Joint Pain, Joint Tenderness Skin: Denies: Rash, Wounds Neurological: Denies: Numbness, Tingling, Focal weakness Psychiatric: Denies: Anxiety, Depression, Homicidal Ideations, Suicidal Ideations Hematologic/ Lymphatic: Denies: Easy Bruising, Easy Bleeding VTE Information - Inpt Only VTE Present on Admission: No VTE Mechan Device Prophylaxis: SCD's VTE Pharm Prophylaxis ordered?: No - Physical Exam Vitals/I&O's: Vital Signs Temp Pulse Resp BP Pulse Ox 96.6 F L 72 16 86/56 L 98 03/08/20 22:46 03/09/20 01:00 03/09/20 01:00 03/09/20 01:00 03/09/20 01:00 Oxygen Delivery Method Room Air Weight: 91.9 kg Body Mass Index (BMI) 28.2 Intake and Output for Last 24 Hours 03/07/20 03/08/20 03/09/20 23:59 23:59 23:59 Intake Total 1000 / 1000 Balance 1000 / 1000 General: Alert, Oriented x3, Cooperative HEENT: PERRLA, EOMI, Normocephalic, - - Excoriation with black stain on nasal bridge. Neck: Supple, No JVD, Negative Carotid Bruits Lungs: Clear to auscultation, Normal air movement Cardiovascular: Regular rate, Normal S1, Normal S2, No murmurs Abdomen: Bowel Sounds Present, Soft, Non Tender, - - Rectal exams was not done. (Emergency department doctor reports that patient had black stool which was very light and as such occult blood could not be done). Extremities: No edema, Capillary Refill Less than 3 Seconds Skin: No rashes, No breakdown Musculoskeletal: No Tenderness to Palpation of Joints or Extremities Neurological: Cranial nerves II-XII grossly intact Psych/Mental Status: Normal Affect, Appropriate Laboratory Results 03/08/20 22:52: WBC 9.3, RBC 2.81 L, Hgb 8.2 L, Hct 25.5 L, MCV 90.7, MCH 29.2, MCHC 32.2, RDW Std Deviation 45.5 H, RDW Coeff of Ena 13.7, Plt Count 341, MPV 11.1, Immature Gran % (Auto) 1.300 H, Neut % (Auto) 79.8 H, Lymph % (Auto) 8.2 L , [place] % (Auto) 9.2, Eos % (Auto) 1.1, Baso % (Auto) 0.4, Absolute Neuts (auto) 7.4, Absolute Lymphs (auto) 0.76 L, Nucleated RBC % 0 03/08/20 22:52: Sodium 140, Potassium 4.8, Chloride 112 H, Carbon Dioxide 21.0, Anion Gap 7, BUN 58 H, Creatinine 1.79 H, Estim Creat Clear Calc 39.15, Est GFR (MDRD) Af Amer 48 L, Est GFR (MDRD) Non-Af 40 L, BUN/Creatinine Ratio 32.4 H, Glucose 155 H, Calcium 7.8 L, Troponin I < 0.015 03/08/20 22:52: PT 13.9, INR 1.1 03/08/20 23:38: Lactic Acid 2.1 H* 03/08/20 23:38: Blood Type A POSITIVE, Antibody Screen NEGATIVE 03/08/20 23:38: Crossmatch See Detail 03/08/20 23:50: Urine Color Yellow, Urine Clarity Clear, Urine pH 6.0, Ur Specific [place] 1.015, Urine Protein 15 H, Urine Glucose (UA) Normal, Urine Ketones Negative, Urine Occult Blood Negative, Urine Nitrite Negative, Urine Bilirubin Negative, Urine Urobilinogen Normal, Ur Leukocyte Esterase Negative, Urine RBC 0-5 SEEN, Urine WBC 0 SEEN, Ur Squamous Epith Cells 0 SEEN, Urine Bacteria RARE, Urine Mucus 0 SEEN Assessment/Plan The patient is a 74 year old M with a significant history of heart failure with preserved ejection fraction; and diabetes mellitus who presents emergency department with 3-day history of lightheadedness; fall x2; bloody diarrhea; reported hemoptysis; who reportedly was orthostatic positive per squad; and he was found to have melena at the ED; was hypotensive and has dropped about 5 g of his hemoglobin. Acute blood loss anemia Likely patient is having hematemesis and not hemoptysis. While his creatinine is stable at 1.79. His BUN has markedly increased to 58. Review of medical department labs showed that previous highest BUN was 26. Emergency department labs showed hemoglobin of 8.2. Previous hemoglobin has been between 12.4-14.3. His last hemoglobin about 7 months ago was 13.0 and 13.8. Discussed case emergency room doctor who gave patient 1 units of packed red blood cells. H&H 1 hour posttransfusion ordered. Protonix IV 80 mg was ordered emergency department. Protonix 40 mg every 12 hours ordered. Patient is on cimetidine at home. Patient will be kept n.p.o. Will order Pepcid 20 mg IV twice daily. I discussed emergent department doctor who discussed case with general surgery Dr. Zaldivar. General surgery consult. Hold home atenolol and Lasix. Receive normal saline bolus at emergency department. Continue patient on normal saline gentle hydration of 100 MLS per hour. Hold aspirin. Lactic acidosis Secondary to anemia and metformin use. Trend. Hypotension Noted to have systolic blood pressure of less than 90. Hold atenolol and Lasix. Admit to intensive care unit. 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 History of present ejection fraction and pleural effusion Echocardiogram on 08/24/2019: Estimated ejection fraction was 65%. Stage II diastolic dysfunction. Right ventricle systolic pressure was 22. Stress echocardiogram on 08/25/2019: Left ventricular ejection fraction was 75%. Stable CKD stage III Stable Diabetes mellitus Patient with mild hyperglycemia on BMP. Hold Metformin. Accu-Cheks every 6 hours with correction scale insulin for now. Prolonged QTc interval On presentation QTC of 464. EKG on 08/23/2019 appears to have QTC of 466. Chronic Avoid QTC prolongation drugs. DVT prophylaxis: No chemical thromboprophylaxis secondary to GI bleed. SCD ordered. Inpatient E&M: 74375 Init Hosp L3
[2020-03-09 02:44] LABS: Platelet Count 330 K/mm3 (150-450); RET-HE 32.7 pg (30-35); Reticulocyte Count 1.32 % (0.5-1.5)
[2020-03-09 02:46] LABS: Ferritin 454 ng/mL (26-388); Iron 46 ug/dL (65-175); Iron Binding Capacity,Total 202 ug/dL (250-450); PERCENT IRON SATURATION 22.8 % (15.0-55.0)
[2020-03-09] MEDS: Famotidine 200 MG/20 ML MDV 20 MG in 0.9% Normal Saline (Pres. free 8 ML 300 MG IV (03:01)
[2020-03-09] MEDS: 0.9% Normal Saline 1,000 ML 100 ML IV (03:01)
[2020-03-09 03:54] LABS: Reflex Lactate? Y
[2020-03-09 05:07] LABS: Anion Gap 6 (5-15); BUN 53 mg/dL (7-18); BUN/Creat Ratio 30.8 RATIO (10-20); Calcium,Total 7.5 mg/dL (8.5-10.1); Chloride 112 mmol/L (98-107); Creatinine, Serum 1.72 mg/dL (0.70-1.30); EST Glomerular Filtration Rate 42 mL/min (>60); Est Glom Filt Rate - Afr Amer 50 mL/min (>60); Estimated Creatinine Clearance 40.74 ml/min; Glucose 120 mg/dL (74-106); Potassium 4.2 mmol/L (3.5-5.1); Sodium Level 139 mmol/L (136-145)
--- NOTE | 2020-03-09 07:47 | CON.PCM_ITS ---
Problem List (1) Acute blood loss anemia Status: Acute (2) Lower GI bleed Status: Acute (3) JOANNA (obstructive sleep apnea) Status: Chronic (4) CHF (congestive heart failure) Status: Chronic Qualifiers: Heart failure type: unspecified Heart failure chronicity: unspecified Qualified Code(s): I50.9 - Heart failure, unspecified (5) Pleural effusion Status: Chronic (6) Diabetes mellitus, type II Status: Chronic (7) Hypertension Status: Chronic (8) Gastroesophageal reflux disease Status: Chronic Reason for Consult Date of Consultation: 03/09/20 Reason for Consultation: Hemorrhagic shock History of Present Illness: The patient is a 74 year old M with past medical history listed below and well- known to me from the outpatient office, who presented to [facility] on 03/08/2020 secondary to weakness and recent falls. Patient is not o n any anticoagulation, but had reported feeling weak and falling several times prior to presentation. Patient had an abrasion on his nose and some mild neck pain. Patient is also had some bloody diarrhea with subjective fevers and sweats. Patient did not report worsening shortness of breath, cough, nausea or vomiting. No hematemesis has been noted. Patient reportedly takes iron at baseline and has dark stools chronically. On presentation to the ER, patient was hypotensive with a systolic blood pressure of 96. Patient did not look toxic per ER physician, but did look pale. Chest x-ray showed a right pleural effusion and CT of the head was unremarkable, along with CT of the C-spine. EKG showed a prolonged QT interval, but no changes compared to previous. Hemoglobin was noted at 8.2 with a previous hemoglobin of 13.8. BUN and creatinine were slightly elevated at 58/1.79, but baseline creatinine is 1.7. Initial lactate was elevated at 2.1. Patient was given Protonix, packed red blood cells and admitted to the intensive care unit for further evaluation. Since being in the intensive care unit, patient reports that he feels subjectively improved compared to previous. Patient states that lying flat he really has no symptoms. No bowel movements have been noted while admitted to the intensive care unit. Patient CBC this morning was delayed secondary to blood transfusion. Patient has been hemodynamically stable on room air while lying flat, but does report dizziness with sitting up. Patient denies any anticoagulation, but did take Excedrin recently for headaches. Patient also reports that his had bought him some mixed nuts. Patient is not reporting any significant abdominal pain. Review of systems otherwise negative from a constitutional, HEENT, respiratory, cardiovascular, GI, genitourinary, musculoskeletal, skin, neurologic, psychiatric and hematologic system unless stated above. Past Medical History Past Medical History (Chronic Problems): Chronic Problems (Last Reviewed 03/09/20 @ 02:[address] Scott Sheridan MD) JOANNA (obstructive sleep apnea) (Chronic) CHF (congestive heart failure) (Chronic) Pleural effusion (Chronic) Snoring (Chronic) Hyperlipidemia (Chronic) Diabetes mellitus, type II (Chronic) Family history of cardiovascular disease (Chronic) TMJ arthralgia (Chronic) Hypertension (Chronic) Gastroesophageal reflux disease (Chronic) Cerumen impaction (Chronic) Medical History: Medical History (Last Reviewed 03/09/20 @ 02:[address] Scott Sheridan MD) CHF (congestive heart failure) (Chronic) I50.9 Pleural effusion (Chronic) J90 Chest tightness (Inactive) R07.89 TMJ (temporomandibular joint syndrome) (Inactive) M26.609 right side Snoring (Chronic) R06.83 Hyperlipidemia (Chronic) E78.5 Sinus tachycardia (Inactive) R00.0 Diabetes mellitus, type II (Chronic) E11.9 SOB (shortness of breath) (Inactive) R06.02 Family history of cardiovascular disease (Chronic) Z82.49 TMJ arthralgia (Chronic) M26.629 Nausea and vomiting in adult (Inactive) R11.2 Hypertension (Chronic) I10 Gastroesophageal reflux disease (Chronic) K21.9 Cerumen impaction (Chronic) H61.20 Allergies No Known Allergies Allergy (Verified 03/08/20 22:51) Home Medications: Ambulatory Orders Medication Instructions Recorded Simvastatin [Zocor] 20 mg PO QHS 05/21/15 metFORMIN HCl [Glucophage] 500 mg PO BID 05/21/15 Aspirin [Aspirin EC] 81 mg PO DAILY@0800 08/23/19 Atenolol [Tenormin] 25 mg PO BID 08/23/19 Cimetidine 400 mg PO BID 08/23/19 Linagliptin [Tradjenta] 5 mg DAILY 08/23/19 lisinopril 40 mg tablet 40 mg PO DAILY tab 09/13/19 Furosemide [Lasix] 20 mg PO DAILY 03/09/20 Surgical History: Surgical History (Last Reviewed 03/09/20 @ 02:[address] Scott Sheridan MD) History of hernia repair Z98.890, Z87.19 Surgical History: herniorrhaphy - Abdominal ventral hernia with mesh Psychiatric History: No pertinent psych hx Smoking Status: Never smoker - *Family History Maternal Family History: Family History (Last Reviewed 03/09/20 @ 02:[address] Scott Sheridan MD) Other Cancer Heart disease Paternal Family History: Family History (Last Reviewed 03/09/20 @ 02:[address] Scott Sheridan MD) Other Cancer Heart disease History Items: Heart Disease - Father had an IA at 66 Sibling Family History: Family History (Last Reviewed 03/09/20 @ 02:[address] Scott Sheridan MD) Other Cancer Heart disease History Items: - - One brother who with an IA at 48 and another brother who is from brain CA Objective: Echocardiogram was last completed on 08/23/2019 showing stage II diastolic dysfunction with preserved ejection fraction of 65% and right ventricular systolic pressure of 22 mmHg. Last pulmonary function test shows a mild restrictive ventilatory defect with a reduction in DLCO (FVC 68%, FEV1 75%, DLCO 54%, TLC 75%). Patient also has obstructive sleep apnea and is on AutoSet with a median pressure of 8 cm of water on last office visit. - Physical Exam Vitals/I&O's: Vital Signs Temp Pulse Resp BP Pulse Ox 36.4 C L 69 19 H 83/55 L 99 03/09/20 06:00 03/09/20 06:00 03/09/20 06:00 03/09/20 06:00 03/09/20 06:42 Oxygen Delivery Method Room Air Weight: 88.9 kg Body Mass Index (BMI) 27.3 Intake and Output for Last 24 Hours 03/07/20 03/08/20 03/09/20 23:59 23:59 23:59 Intake Total 1845 / 1845 Output Total 150 / 150 Balance 1695 / 1695 General: Alert, Oriented x3, Cooperative, No apparent distress - Lying flat, - - No conversational dyspnea HEENT: Atraumatic, PERRLA, EOMI, Normocephalic, - - No scleral icterus or injection noted Oral: Moist Mucosa, No Gingival or Mucosal Lesions/ Ulcerations Neck: Supple, No JVD, No Nodes, Trachea Midline Lungs: Clear to auscultation, Normal air movement, No rhonchi, No wheeze, No rales Cardiovascular: Regular rate, Regular Rhythm, Normal S1, Normal S2, No murmurs, No rub noted, No Gallop Abdomen: Bowel Sounds Present, Soft, Non Tender, Non-Distended Extremities: No clubbing, No cyanosis, No edema, Capillary Refill Less than 3 Seconds Skin: - - Abrasion noted on the bridge of the nose Musculoskeletal: No Tenderness to Palpation of Joints or Extremities Lymphatic: No Cervical, Supraclavicular, or Inguinal Adenopathy Neurological: Cranial nerves II-XII grossly intact, Neuro grossly intact, Motor Exam 5/5 strength throughout, - - Did not check orthostatic symptomatology Psych/Mental Status: Alert and oriented to time, place, person, mood and affect Laboratory Results 03/08/20 22:52: WBC 9.3, RBC 2.81 L, Hgb 8.2 L, Hct 25.5 L, MCV 90.7, MCH 29.2, MCHC 32.2, RDW Std Deviation 45.5 H, RDW Coeff of Ena 13.7, Plt Count 341, MPV 11.1, Immature Gran % (Auto) 1.300 H, Neut % (Auto) 79.8 H, Lymph % (Auto) 8.2 L , [place] % (Auto) 9.2, Eos % (Auto) 1.1, Baso % (Auto) 0.4, Absolute Neuts (auto) 7.4, Absolute Lymphs (auto) 0.76 L, Nucleated RBC % 0 03/08/20 22:52: Sodium 140, Potassium 4.8, Chloride 112 H, Carbon Dioxide 21.0, Anion Gap 7, BUN 58 H, Creatinine 1.79 H, Estim Creat Clear Calc 39.15, Est GFR (MDRD) Af Amer 48 L, Est GFR (MDRD) Non-Af 40 L, BUN/Creatinine Ratio 32.4 H, Glucose 155 H, Calcium 7.8 L, Troponin I < 0.015 03/08/20 22:52: PT 13.9, INR 1.1 03/08/20 22:52: Retic Count 1.32, Immature Retic Fraction 21.70 H, Retic Hgb Equivalent 32.7 03/08/20 22:52: Iron 46 L, TIBC 202 L, Iron Saturation 22.8, Ferritin 454 H 03/08/20 23:38: Lactic Acid 2.1 H* 03/08/20 23:38: Blood Type A POSITIVE, Antibody Screen NEGATIVE 03/08/20 23:38: Crossmatch See Detail 03/08/20 23:50: Urine Color Yellow, Urine Clarity Clear, Urine pH 6.0, Ur Specific [place] 1.015, Urine Protein 15 H, Urine Glucose (UA) Normal, Urine Ketones Negative, Urine Occult Blood Negative, Urine Nitrite Negative, Urine Bilirubin Negative, Urine Urobilinogen Normal, Ur Leukocyte Esterase Negative, Urine RBC 0-5 SEEN, Urine WBC 0 SEEN, Ur Squamous Epith Cells 0 SEEN, Urine Bacteria RARE, Urine Mucus 0 SEEN 03/09/20 04:20: Sodium 139, Potassium 4.2, Chloride 112 H, Carbon Dioxide 21.0, Anion Gap 6, BUN 53 H, Creatinine 1.72 H, Estim Creat Clear Calc 40.74, Est GFR (MDRD) Af Amer 50 L, Est GFR (MDRD) Non-Af 42 L, BUN/Creatinine Ratio 30.8 H, Glucose 120 H, Calcium 7.5 L 03/09/20 04:20: Lactic Acid 2.0 Current Medications Sodium Chloride () 1,000 mls @ 100 mls/hr IV .Q10H KEVIN Stop: 03/09/20 12:12 Last Admin: 03/09/20 03:01 Dose: 100 mls/hr Documented by: Pantoprazole Sodium 40 mg/ (Sodium Chloride) 110 mls @ 330 mls/hr IV Q12 KEVIN Sodium Chloride () 250 mls @ 15 mls/hr IV .[id number] PRN PRN Reason: Saline Flush Sodium Chloride () 250 mls @ 15 mls/hr IV .[id number] PRN PRN Reason: Additional IVPB Infusion Sodium Chloride (0.9% Saline Lock 10 Ml Syringe) 10 - 40 ml IV UD PRN PRN Reason: SALINE FLUSH Clinical Impression(s) from Imaging Studies Cervical Spine CT 03/08/20 23:34 IMPRESSION: Negative unenhanced CT examination of the cervical spine for acute fracture. Electronically Signed: Derick Louis, at 1:00 EST Tel , Service support , Chest X-Ray 03/08/20 23:46 IMPRESSION: Persistent obscuration of the right costophrenic angle likely due to underlying right pleural effusion and associated atelectasis. No significant radiographic change. Electronically Signed: Derick Louis, at 0:01 EST Tel , Service support , Brain CT 03/08/20 23:55 IMPRESSION: Chronic involutional changes of the brain. No interval change. Electronically Signed: Derick Louis, at 0:55 EST Tel , Service support , Assessment/Plan RECOMMENDATIONS: 1. Await repeat H&H. Transfuse to keep hemoglobin greater than 8 2. Await surgical recommendations 3. Agree with Protonix, okay to discontinue H2 [place] 4. No further lactates required 5. Continue to hold atenolol and Lasix 6. Initiate CPAP 8 cm water with sleep IMPRESSIONS: 1. Syncope secondary to hemorrhagic shock secondary to acute blood loss anemia secondary to GI bleed Exact etiology of bleeding is unclear. Patient appears to be down 5 g from baseline. Patient is reporting bright red blood per rectum indicating a possible lower GI bleed. Surgery has been consulted. Patient will be placed on Protonix. Okay to discontinue H2 dawood. Continue to monitor H&H, but keep hemoglobin greater than 8 given active GI bleeding. Patient will require orthostatic blood pressures prior to ambulation. Patient's oxygenation status appears to be doing well, so okay to volume resuscitate from my perspective. Okay to discontinue lactates. Hold Metformin given renal dysfunction and hypovolemic state. 2. Chronic diastolic CHF/CKD stage III Patient appears to be doing well at this time. Patient has had an effusion in the past and this does not require any intervention while hospitalized in my opinion. We will hold on diuretics for now. Patient can likely tolerate volume given active GI bleed. Continue to monitor oxygen status. Renal function appears to be at baseline. 3. Diabetes mellitus/recent fall/prolonged QTC/sleep apnea Agree with holding patient's Metformin. Sliding scale insulin can be used in the interim. Patient is on telemetry for QTC monitoring. Patient should be initiated on AutoPap versus CPAP 8 cm of water with sleep to avoid complications. Inpatient E&M: [id number] Init Hosp L3
[2020-03-09 08:52] LABS: Absolute Neutrophil Count 4.7 X10^3/uL (2.0-7.7); Basophil# 0.05 X10^3/uL; Basophil% 0.7 % (0-1); Eosinophil# 0.18 X10^3/uL; Eosinophils% 2.6 % (0-5); Hematocrit 26.2 % (40-54); Hemoglobin 8.5 g/dL (13.0-16.5); Lymphocyte % 14.5 % (19-41); Mean Corp Hgb Conc 32.4 g/dL (32-36); Mean Corpuscular Hgb 29.6 pg (27.0-32.0); Mean Corpuscular Volume 91.3 fL (80-94); Mean Platelet Vol. 10.7 fl (6.2-12.0); Monocyte# 0.86 X10^3/uL; Monocyte% 12.5 % (0-10); NRBC Flagged by Analyzer 0 % (0-5); Neutrophil # 4.67 X10^3/uL (2.7-7.7); Neutrophil % 67.8 % (47-70); Platelet Count 256 K/mm3 (150-450); RBC Distribution Width CV 13.7 % (11.6-14.6); RBC Distribution Width SD 45.8 fl (35.1-43.9); Red Blood Count 2.87 M/mm3 (4.6-6.2); White Blood Count 6.9 K/mm3 (4.4-11.0)
--- NOTE | 2020-03-09 10:44 | PCM.CONS.B ---
- Consult Date of Consult: 03/09/20 - Reason for Consult Chief Complaint: anemia rectal bleeding History of Present Illness: 74 yo pleasant WM presents with rectal bleeding for three days and is noted upon admission to have a Hgb of 8. He initially presented with light headedness and falling down because of this. He denies any abdominal pain. Has increased abdominal gas/distention. This has caused decrease in appetite because he feels distended and this radiates into the chest causing discomfort. He feels he can't release gas enough. Denies emesis. Rectal bleeding described as bright red blood with clots and dark stools, however, he states that he has been on iron supplementation for about 6 weeks. Last recalls having colonoscopy about 7 years ago. No colon cancer known in immediate family. Has had acid indigestion and heartburn in the past but well controlled with PPI for which he has been on this for years. Denies history of PUD. Denies use of NSAIDs. Does take excedrin for headaches but he states that this is rare. Admission in August - pleural effusion/anasarca/CHF. Past Medical History: history of CHF JOANNA DM HTN Past Surgical History: ventral hernia repair with mesh Medications: Simvastatin [Zocor] 20 mg PO QHS metFORMIN HCl [Glucophage] 500 mg PO BID Aspirin [Aspirin EC] 81 mg PO DAILY@0800 Atenolol [Tenormin] 25 mg PO BID Cimetidine 400 mg PO BID Linagliptin [Tradjenta] 5 mg DAILY lisinopril 40 mg tablet 40 mg PO DAILY tab Furosemide [Lasix] 20 mg PO DAILY Allergies: Has no known drug allergies Social history: TOB use denies Review of Systems: General - denies fevers, denies weight loss, denies anorexia Cardiovascular see PMH Pulmonary denies shortness of breath, has noted specks of blood in sputum with coughing Gastrointestinal as per HPI, denies abdominal pain Neurological denies seizures Genitourinary denies burning with urination, denies blood in urine Hematological denies spontaneous/prolonged bleeding Skin denies non healing open wounds Musculoskeletal no new muscle/bone pain Endocrine denies diabetes, denies thyroid problems Psychological denies hallucinations Physical examination: Vital signs Temp 96.7F HR 72 RR 16 BP 86/56 O2 sat 98% General WD/WN WM in no apparent distress, alert and oriented, not septic appearing HEENT Normocephalic. EOM intact with sclera clear . Neck is supple with no jugular venous distention noted. Trachea is midline. Lungs no labored breathing noted, such as retractions. no adventitial lung sounds noted. No cough heard. Heart normal heart, regular rate. Abdomen soft and benign. Extremities no pitting edema noted. No obvious deformity noted. Genitourinary/Rectal deferred Skin normal skin integrity. Neurological non focal Psychological normal affect, patient is calm and appropriate Impression: anemia lower GI bleed/rectal bleeding Discussion/Plan: I have discussed the above with the patient. I have offered the patient the procedure of upper and lower endoscopy to determine source of anemia and rectal bleeding. I have explained the procedure to the patient. I have counseled the patient as to the risks of the procedure, including but not limited to: infection, bleeding, injury to any blood vessels/nerves, injury to any intraabdominal organs such as liver/spleen, perforation of the GI tract, increased risk for neha COVID and/or its complications, inability to complete the procedure, etc. the patient understands. He agrees to proceed. To be scheduled for tomorrow around 11:30. Pending COVID testing, may be done in the ICU room. I have answered all questions to the patient?s satisfaction and the patient has no further questions.
[2020-03-09 11:07] LABS: Probe Check PASS; Specimen Processing Control PASS
[2020-03-09] MEDS: Electrolyte Solution/Peg's 4000 ML 2000 ML PO ×2 (13:00→20:00)
--- NOTE | 2020-03-09 13:20 | PN_ITS ---
Patient Problems: Active and Suspected Problems (Last Reviewed 03/09/20 @ 02:[address] Scott Sheridan MD) Acute blood loss anemia (Acute) Lower GI bleed (Acute) Reason for Visit: GI bleed Subjective: No further bleeding, melena. No hematemesis. No epistaxis. He is very concerned about his who is apparently very ill. He denies any contacts, but then later says he was around his children around [facility]. Vitals/I&O's: Vital Signs Temp Pulse Resp BP Pulse Ox 36.4 C L 71 21 H 101/64 98 03/09/20 08:00 03/09/20 11:00 03/09/20 11:00 03/09/20 11:00 03/09/20 11:00 Oxygen Delivery Method Room Air Weight: 88.9 kg Body Mass Index (BMI) 27.3 Intake and Output for Last 24 Hours 03/07/20 03/08/20 03/09/20 23:59 23:59 23:59 Intake Total 1955 / 5 Output Total 450 / 450 Balance 1505 / 1505 General: Alert, No apparent distress HEENT: Atraumatic, Normocephalic Oral: Moist Mucosa, No Gingival or Mucosal Lesions/ Ulcerations Neck: No Nodes, Thyroid Normal Size and Texture Lungs: Clear to auscultation, Normal air movement, No rhonchi, No wheeze, No rales Cardiovascular: Regular rate, Regular Rhythm, Normal S1, Normal S2 Abdomen: Bowel Sounds Present, Soft, Non Tender, Non-Distended, No Hepato- splenomegaly Extremities: No edema, No Calf Tenderness Skin: No rashes, No breakdown Psych/Mental Status: Normal Affect, Appropriate Microbiology Past 72 Hours 03/09/20 09:00 Mucosa - Nose SARS-CoV-2 Antigen (Rapid) - Final Laboratory Results 03/08/20 22:52: WBC 9.3, RBC 2.81 L, Hgb 8.2 L, Hct 25.5 L, MCV 90.7, MCH 29.2, MCHC 32.2, RDW Std Deviation 45.5 H, RDW Coeff of Ena 13.7, Plt Count 341, MPV 11.1, Immature Gran % (Auto) 1.300 H, Neut % (Auto) 79.8 H, Lymph % (Auto) 8.2 L , [place] % (Auto) 9.2, Eos % (Auto) 1.1, Baso % (Auto) 0.4, Absolute Neuts (auto) 7.4, Absolute Lymphs (auto) 0.76 L, Nucleated RBC % 0 03/08/20 22:52: Sodium 140, Potassium 4.8, Chloride 112 H, Carbon Dioxide 21.0, Anion Gap 7, BUN 58 H, Creatinine 1.79 H, Estim Creat Clear Calc 39.15, Est GFR (MDRD) Af Amer 48 L, Est GFR (MDRD) Non-Af 40 L, BUN/Creatinine Ratio 32.4 H, Glucose 155 H, Calcium 7.8 L, Troponin I < 0.015 03/08/20 22:52: PT 13.9, INR 1.1 03/08/20 22:52: Retic Count 1.32, Immature Retic Fraction 21.70 H, Retic Hgb Equivalent 32.7 03/08/20 22:52: Iron 46 L, TIBC 202 L, Iron Saturation 22.8, Ferritin 454 H 03/08/20 23:38: Lactic Acid 2.1 H* 03/08/20 23:38: Blood Type A POSITIVE, Antibody Screen NEGATIVE 03/08/20 23:38: Crossmatch See Detail 03/08/20 23:38: Crossmatch See Detail 03/08/20 23:50: Urine Color Yellow, Urine Clarity Clear, Urine pH 6.0, Ur Specific [place] 1.015, Urine Protein 15 H, Urine Glucose (UA) Normal, Urine Ketones Negative, Urine Occult Blood Negative, Urine Nitrite Negative, Urine Bilirubin Negative, Urine Urobilinogen Normal, Ur Leukocyte Esterase Negative, Urine RBC 0-5 SEEN, Urine WBC 0 SEEN, Ur Squamous Epith Cells 0 SEEN, Urine Bact eria RARE, Urine Mucus 0 SEEN 03/09/20 04:20: Sodium 139, Potassium 4.2, Chloride 112 H, Carbon Dioxide 21.0, Anion Gap 6, BUN 53 H, Creatinine 1.72 H, Estim Creat Clear Calc 40.74, Est GFR (MDRD) Af Amer 50 L, Est GFR (MDRD) Non-Af 42 L, BUN/Creatinine Ratio 30.8 H, Glucose 120 H, Calcium 7.5 L 03/09/20 04:20: Lactic Acid 2.0 03/09/20 08:30: WBC 6.9, RBC 2.87 L, Hgb 8.5 L, Hct 26.2 L, MCV 91.3, MCH 29.6, MCHC 32.4, RDW Std Deviation 45.8 H, RDW Coeff of Ena 13.7, Plt Count 256, MPV 10.7, Immature Gran % (Auto) 1.900 H, Neut % (Auto) 67.8, Lymph % (Auto) 14.5 L, [place] % (Auto) 12.5 H, Eos % (Auto) 2.6, Baso % (Auto) 0.7, Absolute Neuts (auto) 4.7, Absolute Lymphs (auto) 1.00, Nucleated RBC % 0 03/09/20 10:00: COVID-19 (HANNY) Positive Current Medications Pantoprazole Sodium 40 mg/ (Sodium Chloride) 110 mls @ 330 mls/hr IV Q12 KEVIN Last Infusion: 03/09/20 12:51 Dose: Infused Documented by: Sodium Chloride () 250 mls @ 15 mls/hr IV .[id number] PRN PRN Reason: Saline Flush Sodium Chloride () 250 mls @ 15 mls/hr IV .[id number] PRN PRN Reason: Additional IVPB Infusion Sodium Chloride (0.9% Saline Lock 10 Ml Syringe) 10 - 40 ml IV UD PRN PRN Reason: SALINE FLUSH Sodium Chloride/Electrolytes (Electrolyte Solution/Peg's 4000 Ml) 2,000 ml PO X1 ONE Stop: 03/09/20 20:01 STROKE Vital Signs/Narrative: Vital Signs Pulse Resp BP Pulse Ox 03/09/20 11:00 71 21 H 101/64 98 03/09/20 10:00 73 19 H 96/63 99 Medical Necessity - Tobacco Use Smoking Status: Never smoker Assessment/Plan All Active Problems (Last Reviewed 03/09/20 @ 02:[address] Scott Sheridan MD) Acute blood loss anemia (Acute) Lower GI bleed (Acute) 1. GI bleed * so far has stopped * DW Dr. Zaldivar, plan is for endoscopy (EGD and colonoscopy) on 03/10. * on IV PPI * clear diet * prep ordered * no need for H2B while on PPI 2. ABLA * Hg currently stable after 2 units of PRBCs * continue to monitor * goal Hg greater than or equal to 8 * Hg in 08/26/2019 was 13.8 3. COVID 19, acute * asymptomatic * patient was checked because he said his family was ill and was concerned about his , who apparently is quite ill. They likely contracted it from family over . * CXR reviewed and shows chronic changes with right pleural effusion * on room with air with no acute breathing issues. * In the absence of symptoms I do not feel treatment nor ID consultation is necessary at this time. * I advised pt inform his to call her PCP and explain her symptoms and instruct her on what to do 4. Hemorrhagic shock * 2/2 above * resolved * lisinopril, furosemide held 5. CKD 3: * creatine at baseline * monitor 6. HFpEF * EF 65% from stress echo on 08/25/2019 * monitor for volume overload while off diuretics * currently stable 7. VTE prophylaxis: SCDs Procedures: Other Procedure - See Report - non-billable rounding as pt seen after midnight.
[2020-03-09 16:48] LABS: Hematocrit 24.9 % (40-54); Hemoglobin 7.9 g/dL (13.0-16.5)
--- NOTE | 2020-03-09 21:09 | NURSING ---
Pt just found out from son that his is being brought into ER for shortness of breath and lethargy. If she is admitted would like to know her room number and have contact with her. Pt is up to [facility] and having bloody diarrhea due to bowel prep.
[2020-03-09 23:16] LABS: Bedside Glucose 114 mg/dL (70-110)
[2020-03-10] VITALS (44 sets, daily range): BP systolic 69–108; BP diastolic 40–91; PULSE 73–97; RESP 12–29; TEMP 36.3–36.7; O2SAT 95–100
[2020-03-10] MEDS: 0.9% Saline Lock 10 ML Syringe IV ×3 (00:08→20:24)
[2020-03-10] MEDS: proCHLORPERazine 10 MG/2 ML Vial 5 MG IV (00:08)
[2020-03-10] MEDS: Lidocaine 5% Patch 1 PATCH TOPICAL ×2 (00:08→13:42)
[2020-03-10 03:11] LABS: Bedside Glucose 168 mg/dL (70-110)
[2020-03-10 03:38] LABS: Absolute Lymphocyte Count 1.21 X10^3/uL (0.83-4.51); Absolute Neutrophil Count 5.6 X10^3/uL (2.0-7.7); Basophil# 0.06 X10^3/uL; Basophil% 0.7 % (0-1); Eosinophil# 0.08 X10^3/uL; Hematocrit 25.1 % (40-54); Hemoglobin 8.1 g/dL (13.0-16.5); Lymphocyte # 1.21 X10^3/ul (4.0); Mean Corp Hgb Conc 32.3 g/dL (32-36); Mean Corpuscular Hgb 29.6 pg (27.0-32.0); Mean Corpuscular Volume 91.6 fL (80-94); Mean Platelet Vol. 10.8 fl (6.2-12.0); Monocyte# 0.87 X10^3/uL; Monocyte% 10.8 % (0-10); NRBC Flagged by Analyzer 0 % (0-5); Neutrophil # 5.63 X10^3/uL (2.7-7.7); Neutrophil % 69.5 % (47-70); Platelet Count 342 K/mm3 (150-450); RBC Distribution Width CV 14.2 % (11.6-14.6); RBC Distribution Width SD 46.5 fl (35.1-43.9); Red Blood Count 2.74 M/mm3 (4.6-6.2); White Blood Count 8.1 K/mm3 (4.4-11.0)
[2020-03-10 03:47] LABS: Anion Gap 6 (5-15); BUN 35 mg/dL (7-18); Calcium,Total 7.6 mg/dL (8.5-10.1); Chloride 118 mmol/L (98-107); Creatinine, Serum 1.25 mg/dL (0.70-1.30); EST Glomerular Filtration Rate 60 mL/min (>60); Est Glom Filt Rate - Afr Amer 73 mL/min (>60); Estimated Creatinine Clearance 56.06 ml/min; Glucose 152 mg/dL (74-106); Potassium 4.2 mmol/L (3.5-5.1); Sodium Level 145 mmol/L (136-145)
--- NOTE | 2020-03-10 04:11 | NURSING ---
600cc of golytely left to finish, patient refusing remainder, education provided.
--- NOTE | 2020-03-10 06:47 | PCM.PN.INT ---
Subjective: The patient was seen and examined at the bedside this morning. Events from the last 24 hours have been reviewed. The patient is currently afebrile, with borderline hemodynamics, but is maintaining appropriate oxygen saturations on room air. The patient has been transfused a total of 2 units packed red blood cells today. Hemoglobin this morning was noted to be 8.1 g/dL. Creatinine has improved to 1.25. The patient does continue to have bloody bowel movements. Objective: The patient's most recent lab work, culture data and imaging studies have all been personally reviewed. Surface echocardiogram revealed an ejection fraction of 65% and stage II diastolic dysfunction. Coronavirus PCR was positive on March 09. Blood cultures are pending. General: Alert, Cooperative, No apparent distress HEENT: Atraumatic, PERRLA, Normocephalic Oral: No Gingival or Mucosal Lesions/ Ulcerations Neck: Supple, No Nodes, Trachea Midline Lungs: Normal air movement Cardiovascular: Regular rate, Regular Rhythm Abdomen: Bowel Sounds Present, Soft, Non Tender Extremities: No clubbing, No cyanosis, No edema Skin: - - Abrasion noted over bridge of nose. Musculoskeletal: No Muscle Wasting Lymphatic: No Cervical, Supraclavicular, or Inguinal Adenopathy Neurological: Cranial nerves II-XII grossly intact, Neuro grossly intact Psych/Mental Status: Normal Affect, Appropriate Vital Signs Temp Pulse Resp BP Pulse Ox 98.0 F 79 29 H 90/60 99 03/10/20 04:00 03/10/20 06:00 03/10/20 06:00 03/10/20 06:00 03/10/20 06:00 Oxygen Delivery Method Room Air Weight: 197 lb 1.492 oz Body Mass Index (BMI) 27.3 Intake and Output for Last 24 Hours 03/08/20 03/09/20 03/10/20 23:59 23:59 23:59 Intake Total 3066 / 3066 Output Total 1150 / 1150 550 / 550 Balance 1916 / 1916 -550 / -550 Labs (Last 48 Hours) 03/08/20 03/08/20 03/08/20 22:52 22:52 22:52 WBC 9.3 RBC 2.81 L Hgb 8.2 L Hct 25.5 L MCV 90.7 MCH 29.2 MCHC 32.2 RDW Std Deviation 45.5 H RDW Coeff of Ena 13.7 Plt Count 341 MPV 11.1 Immature Gran % (Auto) 1.300 H Neut % (Auto) 79.8 H Lymph % (Auto) 8.2 L [place] % (Auto) 9.2 Eos % (Auto) 1.1 Baso % (Auto) 0.4 Absolute Neuts (auto) 7.4 Absolute Lymphs (auto) 0.76 L Nucleated RBC % 0 Retic Count Immature Retic Fraction Retic Hgb Equivalent PT 13.9 INR 1.1 Sodium 140 Potassium 4.8 Chloride 112 H Carbon Dioxide 21.0 Anion Gap 7 BUN 58 H Creatinine 1.79 H Estim Creat Clear Calc 39.15 Est GFR (MDRD) Af Amer 48 L Est GFR (MDRD) Non-Af 40 L BUN/Creatinine Ratio 32.4 H Glucose 155 H Lactic Acid Calcium 7.8 L Iron TIBC Iron Saturation Ferritin Troponin I < 0.015 Urine Color Urine Clarity Urine pH Ur Specific [place] Urine Protein Urine Glucose (UA) Urine Ketones Urine Occult Blood Urine Nitrite Urine Bilirubin Urine Urobilinogen Ur Leukocyte Esterase Urine RBC Urine WBC Ur Squamous Epith Cells Urine Bacteria Urine Mucus COVID-19 (HANNY) POC Glucose Blood Type Antibody Screen Crossmatch 03/08/20 03/08/20 03/08/20 22:52 22:52 23:38 WBC RBC Hgb Hct MCV MCH MCHC RDW Std Deviation RDW Coeff of Ena Plt Count MPV Immature Gran % (Auto) Neut % (Auto) Lymph % (Auto) [place] % (Auto) Eos % (Auto) Baso % (Auto) Absolute Neuts (auto) Absolute Lymphs (auto) Nucleated RBC % Retic Count 1.32 Immature Retic Fraction 21.70 H Retic Hgb Equivalent 32.7 PT INR Sodium Potassium Chloride Carbon Dioxide Anion Gap BUN Creatinine Estim Creat Clear Calc Est GFR (MDRD) Af Amer Est GFR (MDRD) Non-Af BUN/Creatinine Ratio Glucose Lactic Acid 2.1 H* Calcium Iron 46 L TIBC 202 L Iron Saturation 22.8 Ferritin 454 H Troponin I Urine Color Urine Clarity Urine pH Ur Specific [place] Urine Protein Urine Glucose (UA) Urine Ketones Urine Occult Blood Urine Nitrite Urine Bilirubin Urine Urobilinogen Ur Leukocyte Esterase Urine RBC Urine WBC Ur Squamous Epith Cells Urine Bacteria Urine Mucus COVID-19 (HANNY) POC Glucose Blood Type Antibody Screen Crossmatch 03/08/20 03/08/20 03/08/20 23:38 23:38 23:38 WBC RBC Hgb Hct MCV MCH MCHC RDW Std Deviation RDW Coeff of Ena Plt Count MPV Immature Gran % (Auto) Neut % (Auto) Lymph % (Auto) [place] % (Auto) Eos % (Auto) Baso % (Auto) Absolute Neuts (auto) Absolute Lymphs (auto) Nucleated RBC % Retic Count Immature Retic Fraction Retic Hgb Equivalent PT INR Sodium Potassium Chloride Carbon Dioxide Anion Gap BUN Creatinine Estim Creat Clear Calc Est GFR (MDRD) Af Amer Est GFR (MDRD) Non-Af BUN/Creatinine Ratio Glucose Lactic Acid Calcium Iron TIBC Iron Saturation Ferritin Troponin I Urine Color Urine Clarity Urine pH Ur Specific [place] Urine Protein Urine Glucose (UA) Urine Ketones Urine Occult Blood Urine Nitrite Urine Bilirubin Urine Urobilinogen Ur Leukocyte Esterase Urine RBC Urine WBC Ur Squamous Epith Cells Urine Bacteria Urine Mucus COVID-19 (HANNY) POC Glucose Blood Type A POSITIVE Antibody Screen NEGATIVE Crossmatch See Detail See Detail 03/08/20 03/09/20 03/09/20 23:50 04:20 04:20 WBC RBC Hgb Hct MCV MCH MCHC RDW Std Deviation RDW Coeff of Ena Plt Count MPV Immature Gran % (Auto) Neut % (Auto) Lymph % (Auto) [place] % (Auto) Eos % (Auto) Baso % (Auto) Absolute Neuts (auto) Absolute Lymphs (auto) Nucleated RBC % Retic Count Immature Retic Fraction Retic Hgb Equivalent PT INR Sodium 139 Potassium 4.2 Chloride 112 H Carbon Dioxide 21.0 Anion Gap 6 BUN 53 H Creatinine 1.72 H Estim Creat Clear Calc 40.74 Est GFR (MDRD) Af Amer 50 L Est GFR (MDRD) Non-Af 42 L BUN/Creatinine Ratio 30.8 H Glucose 120 H Lactic Acid 2.0 Calcium 7.5 L Iron TIBC Iron Saturation Ferritin Troponin I Urine Color Yellow Urine Clarity Clear Urine pH 6.0 Ur Specific [place] 1.015 Urine Protein 15 H Urine Glucose (UA) Normal Urine Ketones Negative Urine Occult Blood Negative Urine Nitrite Negative Urine Bilirubin Negative Urine Urobilinogen Normal Ur Leukocyte Esterase Negative Urine RBC 0-5 SEEN Urine WBC 0 SEEN Ur Squamous Epith Cells 0 SEEN Urine Bacteria RARE Urine Mucus 0 SEEN COVID-19 (HANNY) POC Glucose Blood Type Antibody Screen Crossmatch 03/09/20 03/09/20 03/09/20 08:30 10:00 16:24 WBC 6.9 RBC 2.87 L Hgb 8.5 L Hct 26.2 L MCV 91.3 MCH 29.6 MCHC 32.4 RDW Std Deviation 45.8 H RDW Coeff of Ena 13.7 Plt Count 256 MPV 10.7 Immature Gran % (Auto) 1.900 H Neut % (Auto) 67.8 Lymph % (Auto) 14.5 L [place] % (Auto) 12.5 H Eos % (Auto) 2.6 Baso % (Auto) 0.7 Absolute Neuts (auto) 4.7 Absolute Lymphs (auto) 1.00 Nucleated RBC % 0 Retic Count Immature Retic Fraction Retic Hgb Equivalent PT INR Sodium Potassium Chloride Carbon Dioxide Anion Gap BUN Creatinine Estim Creat Clear Calc Est GFR (MDRD) Af Amer Est GFR (MDRD) Non-Af BUN/Creatinine Ratio Glucose Lactic Acid Calcium Iron TIBC Iron Saturation Ferritin Troponin I Urine Color Urine Clarity Urine pH Ur Specific [place] Urine Protein Urine Glucose (UA) Urine Ketones Urine Occult Blood Urine Nitrite Urine Bilirubin Urine Urobilinogen Ur Leukocyte Esterase Urine RBC Urine WBC Ur Squamous Epith Cells Urine Bacteria Urine Mucus COVID-19 (HANNY) Positive POC Glucose 114 H Blood Type Antibody Screen Crossmatch 03/09/20 03/09/20 03/10/20 16:30 23:19 03:25 WBC 8.1 RBC 2.74 L Hgb 7.9 L 8.1 L Hct 24.9 L 25.1 L MCV 91.6 MCH 29.6 MCHC 32.3 RDW Std Deviation 46.5 H RDW Coeff of Ena 14.2 Plt Count 342 MPV 10.8 Immature Gran % (Auto) 3.000 H Neut % (Auto) 69.5 Lymph % (Auto) 15.0 L [place] % (Auto) 10.8 H Eos % (Auto) 1.0 Baso % (Auto) 0.7 Absolute Neuts (auto) 5.6 Absolute Lymphs (auto) 1.21 Nucleated RBC % 0 Retic Count Immature Retic Fraction Retic Hgb Equivalent PT INR Sodium Potassium Chloride Carbon Dioxide Anion Gap BUN Creatinine Estim Creat Clear Calc Est GFR (MDRD) Af Amer Est GFR (MDRD) Non-Af BUN/Creatinine Ratio Glucose Lactic Acid Calcium Iron TIBC Iron Saturation Ferritin Troponin I Urine Color Urine Clarity Urine pH Ur Specific [place] Urine Protein Urine Glucose (UA) Urine Ketones Urine Occult Blood Urine Nitrite Urine Bilirubin Urine Urobilinogen Ur Leukocyte Esterase Urine RBC Urine WBC Ur Squamous Epith Cells Urine Bacteria Urine Mucus COVID-19 (HANNY) POC Glucose 168 H Blood Type Antibody Screen Crossmatch 03/10/20 03:25 WBC RBC Hgb Hct MCV MCH MCHC RDW Std Deviation RDW Coeff of Ena Plt Count MPV Immature Gran % (Auto) Neut % (Auto) Lymph % (Auto) [place] % (Auto) Eos % (Auto) Baso % (Auto) Absolute Neuts (auto) Absolute Lymphs (auto) Nucleated RBC % Retic Count Immature Retic Fraction Retic Hgb Equivalent PT INR Sodium 145 Potassium 4.2 Chloride 118 H Carbon Dioxide 21.0 Anion Gap 6 BUN 35 H Creatinine 1.25 Estim Creat Clear Calc 56.06 Est GFR (MDRD) Af Amer 73 Est GFR (MDRD) Non-Af 60 BUN/Creatinine Ratio 28.0 H Glucose 152 H Lactic Acid Calcium 7.6 L Iron TIBC Iron Saturation Ferritin Troponin I Urine Color Urine Clarity Urine pH Ur Specific [place] Urine Protein Urine Glucose (UA) Urine Ketones Urine Occult Blood Urine Nitrite Urine Bilirubin Urine Urobilinogen Ur Leukocyte Esterase Urine RBC Urine WBC Ur Squamous Epith Cells Urine Bacteria Urine Mucus COVID-19 (HANNY) POC Glucose Blood Type Antibody Screen Crossmatch Microbiology 03/09/20 09:00 Mucosa - Nose SARS-CoV-2 Antigen (Rapid) - Final SARS-CoV-2 (COVID 19) Clinical Impression(s) from Imaging Studies Cervical Spine CT 03/08/20 23:34 IMPRESSION: Negative unenhanced CT examination of the cervical spine for acute fracture. Electronically Signed: Derick Louis, at 1:00 EST Tel , Service support , Chest X-Ray 03/08/20 23:46 IMPRESSION: Persistent obscuration of the right costophrenic angle likely due to underlying right pleural effusion and associated atelectasis. No significant radiographic change. Electronically Signed: Derick Louis, at 0:01 EST Tel , Service support , Brain CT 03/08/20 23:55 IMPRESSION: Chronic involutional changes of the brain. No interval change. Electronically Signed: Derick Louis, at 0:55 EST Tel , Service support , Medical Necessity - Tobacco Use Smoking Status: Never smoker Assessment/Plan All Active Problems (Last Reviewed 03/09/20 @ 02:[address] Scott Sheridan MD) Acute blood loss anemia (Acute) Lower GI bleed (Acute) RECOMMENDATIONS: 1. Administer additional unit of packed red blood cells now. 2. Continue to monitor H&H. 3. Continue PPI therapy twice daily. 4. Await endoscopic evaluation. 5. Avoid Decadron over concerns for GI bleeding. 6. Recommend CPAP therapy on a nightly basis, given history of JOANNA. IMPRESSIONS: 1. Syncope secondary to hemorrhagic shock secondary to acute blood loss anemia due to presumed GI bleed Continue current supportive measures with packed red blood cells and PPI therapy as ordered. I would recommend that given the patient's ongoing GI losses, then an additional unit of packed red blood cells be administered this morning. General surgery is following with plans for endoscopic evaluation later today. 2. COVID-19 infection The patient was incidentally found to be positive for coronavirus on admission to the hospital. However, he is currently maintaining oxygen saturations on room air in the high 90s. No additional therapeutic intervention is indicated at this time. 3. Chronic diastolic CHF/CKD stage III The patient appears to be stable from a cardiac perspective. However, lisinopril and Lasix will be held, given tenuous hemodynamics. 4. Diabetes mellitus/recent fall/prolonged QTC/sleep apnea Complicates care, management, recovery and prognosis. Encouraged use of nocturnal CPAP therapy. This note was generated with [employer] dictation software. It may contain incorrect words, spelling, and punctuation that were not noted in checking the note before signing. Inpatient E&M: [id number] [facility] H[facility] L3
--- NOTE | 2020-03-10 07:22 | PN_ITS ---
Patient Problems: Active and Suspected Problems (Last Reviewed 03/09/20 @ 02:[address] Scott Sheridan MD) Acute blood loss anemia (Acute) Lower GI bleed (Acute) Reason for Visit: Acute blood loss anemia GI bleed Hemorrhagic shock Subjective: Patient is a 74-year-old lady with recent diagnosis of acute COVID-19 who was brought in with lightheadedness falls.. He had also complained of hemoptysis as well as bloody diarrhea for 3 days prior to his admission. An assessment of acute GI bleed was made admitted to the intensive care unit resuscitated with IV fluid with consultation placed to general surgery with endoscopic evaluation planned for 03/10/2020 Objective: GENERAL: cooperative HEENT: Bruising at the bridge of the nose EYES; Anicteric, Normal Conjunctiva NECK; supple, normal thyroid, RESPIRATORY: Diminished to auscultation CARDIOVASCULAR: Regular S1 S2, GI: soft, normoactive bowel sounds, : No Renal angle tenderness; EXTREMITIES: Skin tear at the back of the right hand MUSCULOSKELETAL: no muscle waisting NEURO: Awake; no lateralizing signs. SKIN: No Rash PSYCH; Flat affect Vitals/I&O's: Vital Signs Temp Pulse Resp BP Pulse Ox 98.0 F 82 19 H 92/54 L 98 03/10/20 04:00 03/10/20 07:00 03/10/20 07:00 03/10/20 07:00 03/10/20 07:00 Oxygen Delivery Method Room Air Weight: 89.4 kg Body Mass Index (BMI) 27.3 Intake and Output for Last 24 Hours 03/08/20 03/09/20 03/10/20 23:59 23:59 23:59 Intake Total 3066 / 3066 Output Total 1150 / 1150 550 / 550 Balance 1916 / 1916 -550 / -550 Microbiology Past 72 Hours 03/09/20 09:00 Mucosa - Nose SARS-CoV-2 Antigen (Rapid) - Final SARS-CoV-2 (COVID 19) Laboratory Results 03/08/20 23:38: Crossmatch See Detail 03/09/20 08:30: WBC 6.9, RBC 2.87 L, Hgb 8.5 L, Hct 26.2 L, MCV 91.3, MCH 29.6, MCHC 32.4, RDW Std Deviation 45.8 H, RDW Coeff of Ena 13.7, Plt Count 256, MPV 10.7, Immature Gran % (Auto) 1.900 H, Neut % (Auto) 67.8, Lymph % (Auto) 14.5 L, [place] % (Auto) 12.5 H, Eos % (Auto) 2.6, Baso % (Auto) 0.7, Absolute Neuts (auto) 4.7, Absolute Lymphs (auto) 1.00, Nucleated RBC % 0 03/09/20 10:00: COVID-19 (HANNY) Positive 03/09/20 16:24: POC Glucose 114 H 03/09/20 16:30: Hgb 7.9 L, Hct 24.9 L 03/09/20 23:19: POC Glucose 168 H 03/10/20 03:25: WBC 8.1, RBC 2.74 L, Hgb 8.1 L, Hct 25.1 L, MCV 91.6, MCH 29.6, MCHC 32.3, RDW Std Deviation 46.5 H, RDW Coeff of Ena 14.2, Plt Count 342, MPV 10.8, Immature Gran % (Auto) 3.000 H, Neut % (Auto) 69.5, Lymph % (Auto) 15.0 L, [place] % (Auto) 10.8 H, Eos % (Auto) 1.0, Baso % (Auto) 0.7, Absolute Neuts (auto) 5.6, Absolute Lymphs (auto) 1.21, Nucleated RBC % 0 03/10/20 03:25: Sodium 145, Potassium 4.2, Chloride 118 H, Carbon Dioxide 21.0, Anion Gap 6, BUN 35 H, Creatinine 1.25, Estim Creat Clear Calc 56.06, Est GFR (MDRD) Af Amer 73, Est GFR (MDRD) Non-Af 60, BUN/Creatinine Ratio 28.0 H, Glucose 152 H, Calcium 7.6 L Current Medications Pantoprazole Sodium 40 mg/ (Sodium Chloride) 110 mls @ 330 mls/hr IV Q12 KEVIN Last Infusion: 03/09/20 21:37 Dose: Infused Documented by: Sodium Chloride () 250 mls @ 15 mls/hr IV .[id number] PRN PRN Reason: Saline Flush Last Infusion: 12/13/20 21:37 Dose: 15 mls/hr Documented by: Sodium Chloride () 250 mls @ 15 mls/hr IV .[id number] PRN PRN Reason: Additional IVPB Infusion Lidocaine (Lidocaine 5% Patch) 1 patch TOPICAL DAILY KEVIN; Protocol Last Admin: 03/10/20 00:08 Dose: 1 patch Documented by: Prochlorperazine Edisylate (Prochlorperazine 10 Mg/2 Ml Vial) 5 mg IV Q6H PRN PRN PRN Reason: NAUSEA/VOMITING Last Admin: 03/10/20 00:08 Dose: 5 mg Documented by: Sodium Chloride (0.9% Saline Lock 10 Ml Syringe) 10 - 40 ml IV UD PRN PRN Reason: SALINE FLUSH Last Admin: 03/10/20 00:08 Dose: 40 ml Documented by: STROKE Vital Signs/Narrative: Vital Signs Temp Pulse Resp BP Pulse Ox 03/10/20 07:00 82 19 H 92/54 L 98 03/10/20 06:00 79 29 H 90/60 99 03/10/20 05:00 91 20 H 90/59 L 99 03/10/20 04:00 98.0 F 91 20 H 101/62 99 Medical Necessity - Tobacco Use Smoking Status: Never smoker Assessment/Plan All Active Problems (Last Reviewed 03/09/20 @ 02:[address] Scott Sheridan MD) Acute blood loss anemia (Acute) Lower GI bleed (Acute) Patient is a 74-year-old lady with recent diagnosis of acute COVID-19 who was brought in with lightheadedness falls.. He had also complained of hemoptysis as well as bloody diarrhea for 3 days prior to his admission. An assessment of acute GI bleed was made admitted to the intensive care unit resuscitated with IV fluid with consultation placed to general surgery with endoscopic evaluation planned for 03/10/2020 1. Acute GI bleed ?Admitted to the intensive care unit typed and crossmatched. Patient has been transfused with a total of 2 unit PRBC following admission. He still remains symptomatic and having active rectal bleed. An order was given for patient to be transfused with 2 additional unit. Consult was placed to general surgery patient has been seen by Dr. Shaw 1 plan is for patient to undergo endoscopic evaluation 2. Hemorrhagic shock secondary to above Patient resuscitated with IV fluid in addition to blood transfusion 3. Acute blood loss anemia ?Secondary to GI bleed management as discussed above 4. Acute COVID-19 ?patient was apparently asymptomatic 5. Acute kidney injury ?Secondary to hypovolemia started on IV fluid with subsequent monitoring of electrolyte 6. Acute congestive heart failure with preserved ejection fraction ?Currently asymptomatic 6. DVT prophylaxis bilateral SCDs Inpatient E&M: [id number] [facility] Hosp L3
[2020-03-10 07:30] LABS: Bedside Glucose 163 mg/dL (70-110)
--- NOTE | 2020-03-10 12:06 | CASEMGMT ---
RN CM Assessment Note Introduced role of CM to patient's who is also patient on covid cohort unit. Patient not able to participate in assessment at this time. Demographics verified with earlier. Patient is independent @ home, able to care for self prior to illness. Did not require assistance with ADL's. COVID TESTING: Positive test @ [facility] 03/09/20 Presentation: possibly passed out @ home. bloody diarrhea, found to be orthostatic positive by EMT. Diagnosis: Acute GIB PCP: Dr. Allen Morrison Specialists: Dr. Bridges, pulmonology Insurance: [facility] [employer] Preferred Pharmacy: [facility] Prescription Benefit: yes LNOK: , Ana Robert, Son Tim Robert Living Arrangements: Lives in one story home with 2 steps into home with . No prior care needs. Tranportation: drives and drives DME: Cpap machine only. HHC: none SNF: none Patient DC Goals: Home on discharge DC Plan: TBD. anticipate patient would benefit from PT/OT evaluations prior to discharge. CM available for discharge planning coordination. Contact CM for any concerns/needs that may arise. Saritha PORTILLON RN ACM
--- NOTE | 2020-03-10 12:14 | OP.EGD_ITS ---
Patient Name: Elenita Collins Procedure Date: 03/10/2020 12:12 PM Date of : 1945 Age: 74 Procedure: Upper GI endoscopy Indications: Acute post hemorrhagic anemia Providers: Valeria Zaldivar MD Referring MD: Scott Sheridan Medicines: See the Anesthesia note for documentation of the administered medications Patient Profile: Refer to note in patient chart for documentation of history and physical. Complications: No immediate complications. Procedure: Pre-Anesthesia Assessment: - see anesthesia note After obtaining informed consent, the endoscope was passed under direct vision. Throughout the procedure, the patient's blood pressure, pulse, and oxygen saturations were monitored continuously. The Endoscope was introduced through the mouth, and advanced to the second part of duodenum. The upper GI endoscopy was accomplished without difficulty. The patient tolerated the procedure well. Findings: The first portion of the duodenum and second portion of the duodenum were normal. No gross lesions were noted in the entire examined stomach. No gross lesions were noted in the entire esophagus. No blood seen in the duodenum/stomach/esophagus. Impression: - Normal first portion of the duodenum and second portion of the duodenum. - No gross lesions in the stomach. - No gross lesions in esophagus. - No specimens collected. Recommendation: - Return patient to ICU for ongoing care. - Continue present medications. Procedure Code(s): --- Professional --- 39490, Esophagogastroduodenoscopy, flexible, transoral; diagnostic, including collection of specimen(s) by brushing or washing, when performed (separate procedure) Diagnosis Code(s): --- Professional --- D62, Acute posthemorrhagic anemia CPT copyright 2017 [employer]. All rights reserved. The codes documented in this report are preliminary and upon industrial electrical engineer review may be revised to meet current compliance requirements. MD Valeria Clifton MD 03/10/2020 12:14:07 PM This report has been signed electronically. Number of Addenda: 0 Note Initiated On: 03/10/2020 12:12 PM
--- NOTE | 2020-03-10 12:14 | OP.CCLET_ITS ---
03/10/2020 Allen Morrison Re : Upper GI endoscopy procedure for Elenita Collins [place] This procedure was performed on Tuesday, March 10, 2020. My impressions and recommendations are as follows: Impressions : - Normal first portion of the duodenum and second portion of the duodenum. - No gross lesions in the stomach. - No gross lesions in esophagus. - No specimens collected. Recommendations : - Return patient to ICU for ongoing care. - Continue present medications. My findings are described in the full procedure note, which is enclosed. If I can be of further assistance, please feel free to contact me at Doctor phone number(s): , Work: . Sincerely, MD Valeria Clifton MD 03/10/2020 12:14:07 PM This report has been signed electronically.
--- NOTE | 2020-03-10 12:19 | OP.CCLET_ITS ---
03/10/2020 Allen Morrison Re : Colonoscopy procedure for Elenita Collins [place] This procedure was performed on Tuesday, March 10, 2020. My impressions and recommendations are as follows: Impressions : - Diverticulosis in the entire examined colon. Blood noted throughout colon but no evidence of active bleeding - suspect diverticular bleed. - Non-bleeding internal hemorrhoids. - No specimens collected. Recommendations : - Repeat colonoscopy in 3 years for routine screening for colon cancer. - Return patient to ICU for ongoing care. - Continue present medications. My findings are described in the full procedure note, which is enclosed. If I can be of further assistance, please feel free to contact me at Doctor phone number(s): , Work: . Sincerely, MD Valeria Clifton MD 03/10/2020 12:18:30 PM This report has been signed electronically.
--- NOTE | 2020-03-10 12:19 | OP.COLON_ITS ---
Patient Name: Elenita Collins Procedure Date: 03/10/2020 12:14 PM Date of : 1945 Age: 74 Procedure: Colonoscopy Indications: Acute post hemorrhagic anemia Providers: Valeria Zaldivar MD Referring MD: Scott Sheridan Medicines: See the Anesthesia note for documentation of the administered medications Patient Profile: Refer to note in patient chart for documentation of history and physical. Last Colonoscopy: several years ago. Complications: No immediate complications. Procedure: Pre-Anesthesia Assessment: - see anesthesia note After I obtained informed consent, the scope was passed under direct vision. Throughout the procedure, the patient's blood pressure, pulse, and oxygen saturations were monitored continuously. The Duodenoscope was introduced through the anus and advanced to the cecum, identified by the appendiceal orifice, ileocecal valve and palpation. The colonoscopy was performed without difficulty. The patient tolerated the procedure well. The quality of the bowel preparation was adequate. Findings: The perianal and digital rectal examinations were normal. Many small and large-mouthed diverticula were found in the entire colon. Blood noted throughout the colon with no definitive source of bleeding noted. No active bleeding noted. Non-bleeding internal hemorrhoids were found. Impression: - Diverticulosis in the entire examined colon. Blood noted throughout colon but no evidence of active bleeding - suspect diverticular bleed. - Non-bleeding internal hemorrhoids. - No specimens collected. Recommendation: - Repeat colonoscopy in 3 years for routine screening for colon cancer. - Return patient to ICU for ongoing care. - Continue present medications. Procedure Code(s): --- Professional --- 30751, Colonoscopy, flexible; diagnostic, including collection of specimen(s) by brushing or washing, when performed (separate procedure) Diagnosis Code(s): --- Professional --- K64.8, Other hemorrhoids D62, Acute posthemorrhagic anemia K57.30, Diverticulosis of large intestine without perforation or abscess without bleeding CPT copyright 2017 [employer]. All rights reserved. The codes documented in this report are preliminary and upon primary care md review may be revised to meet current compliance requirements. MD Valeria Clifton MD 03/10/2020 12:18:30 PM This report has been signed electronically. Number of Addenda: 0 Note Initiated On: 03/10/2020 12:14 PM
--- NOTE | 2020-03-10 12:19 | PCM.PN.BLA ---
Progress Note EGD and colonoscopy done. No definitive source of bleeding noted, blood noted in entire colon - suspect diverticular bleeding. Recommend start on clear liquid diet (if stable then can advance diet) and monitor. If no further decrease in Hgb and no further rectal bleeding, can discharge. If drop in Hgb noted, patient may benefit from bleeding scan to localize site of colonic bleeding. STROKE Vital Signs/Narrative: Vital Signs Pulse Ox 03/10/20 09:30 98
[2020-03-10 19:46] LABS: Bedside Glucose 181 mg/dL (70-110)
[2020-03-10] MEDS: Insulin Lispro 100 UNIT/ML INSULN.PEN SC (20:28)
[2020-03-10 23:30] LABS: Bedside Glucose 190 mg/dL (70-110)
[2020-03-11] VITALS (16 sets, daily range): BP systolic 87–114; BP diastolic 55–68; PULSE 78–109; RESP 9–23; TEMP 36.3–36.7; O2SAT 99–100
[2020-03-11 04:17] LABS: Hematocrit 22.5 % (40-54); Hemoglobin 7.4 g/dL (13.0-16.5); Mean Corp Hgb Conc 32.9 g/dL (32-36); Mean Corpuscular Hgb 29.6 pg (27.0-32.0); Mean Platelet Vol. 10.6 fl (6.2-12.0); Platelet Count 260 K/mm3 (150-450); RBC Distribution Width CV 14.3 % (11.6-14.6); White Blood Count 9.4 K/mm3 (4.4-11.0)
[2020-03-11 04:30] LABS: Anion Gap 4 (5-15); BUN 28 mg/dL (7-18); Calcium,Total 7.3 mg/dL (8.5-10.1); Chloride 114 mmol/L (98-107); Creatinine, Serum 1.12 mg/dL (0.70-1.30); EST Glomerular Filtration Rate 68 mL/min (>60); Est Glom Filt Rate - Afr Amer 83 mL/min (>60); Estimated Creatinine Clearance 62.56 ml/min; Glucose 198 mg/dL (74-106); Magnesium 1.8 mg/dL (1.6-2.6); Potassium 4.7 mmol/L (3.5-5.1); Sodium Level 141 mmol/L (136-145)
[2020-03-11] MEDS: 0.9% Saline Lock 10 ML Syringe IV (05:06)
--- NOTE | 2020-03-11 05:06 | NURSING ---
pt had a large thick maroon foul smelling stool. Pt cleaned up
--- NOTE | 2020-03-11 05:53 | PN_ITS ---
Subjective: The patient was seen and examined at the bedside this morning. Events from the last 24 hours have been reviewed. The patient is currently afebrile, hemodynamically stable and maintaining appropriate oxygen saturations on room air. Per nursing report, the patient did have a large bloody, maroon bowel movement last night. Hemoglobin this morning was noted to be 7.4g/dL. General surgery recommended tagged red blood cell scan versus transfer to tertiary care facility. Objective: The patient's most recent lab work, culture data and imaging studies have all been personally reviewed. Surface echocardiogram revealed an ejection fraction of 65% and stage II diastolic dysfunction. Coronavirus PCR was positive on Dece mber 13. Blood cultures are pending. General: Alert, Cooperative, No apparent distress HEENT: Atraumatic, PERRLA, Normocephalic Oral: No Gingival or Mucosal Lesions/ Ulcerations Neck: Supple, No Nodes, Trachea Midline Lungs: Normal air movement, No rhonchi, No wheeze, No rales Cardiovascular: Regular rate, Regular Rhythm Abdomen: Bowel Sounds Present, Soft, Non Tender Extremities: No clubbing, No cyanosis, No edema Skin: No breakdown Musculoskeletal: No Tenderness to Palpation of Joints or Extremities Lymphatic: No Cervical, Supraclavicular, or Inguinal Adenopathy Neurological: Cranial nerves II-XII grossly intact, Neuro grossly intact Psych/Mental Status: Normal Affect, Appropriate Vital Signs Temp Pulse Resp BP Pulse Ox 97.8 F 86 17 112/64 100 03/11/20 05:09 03/11/20 05:09 03/11/20 05:09 03/11/20 05:09 03/11/20 05:09 Oxygen Flow Rate (L/min) 6 Oxygen Delivery Method Room Air Weight: 201 lb 15.095 oz Body Mass Index (BMI) 27.3 Intake and Output for Last 24 Hours 03/09/20 03/10/20 03/11/20 23:59 23:59 23:59 Intake Total 3066 / 3066 2981.5 / 3101.5 1410 / 1410 Output Total 1150 / 1150 875 / 1125 1050 / 1050 Balance 1915 / 191 2106.5 / 1976.5 360 / 360 Labs (Last 48 Hours) 03/08/20 03/08/20 03/08/20 23:38 23:38 23:38 WBC RBC Hgb Hct MCV MCH MCHC RDW Std Deviation RDW Coeff of Ena Plt Count MPV Immature Gran % (Auto) Neut % (Auto) Lymph % (Auto) Mckean % (Auto) Eos % (Auto) Baso % (Auto) Absolute Neuts (auto) Absolute Lymphs (auto) Nucleated RBC % Sodium Potassium Chloride Carbon Dioxide Anion Gap BUN Creatinine Estim Creat Clear Calc Est GFR (MDRD) Af Amer Est GFR (MDRD) Non-Af BUN/Creatinine Ratio Glucose Calcium Magnesium COVID-19 (HANNY) POC Glucose Crossmatch See Detail See Detail See Detail 03/09/20 03/09/20 03/09/20 08:30 10:00 16:24 WBC 6.9 RBC 2.87 L Hgb 8.5 L Hct 26.2 L MCV 91.3 MCH 29.6 MCHC 32.4 RDW Std Deviation 45.8 H RDW Coeff of Ena 13.7 Plt Count 256 MPV 10.7 Immature Gran % (Auto) 1.900 H Neut % (Auto) 67.8 Lymph % (Auto) 14.5 L Mckean % (Auto) 12.5 H Eos % (Auto) 2.6 Baso % (Auto) 0.7 Absolute Neuts (auto) 4.7 Absolute Lymphs (auto) 1.00 Nucleated RBC % 0 Sodium Potassium Chloride Carbon Dioxide Anion Gap BUN Creatinine Estim Creat Clear Calc Est GFR (MDRD) Af Amer Est GFR (MDRD) Non-Af BUN/Creatinine Ratio Glucose Calcium Magnesium COVID-19 (HANNY) Positive POC Glucose 114 H Crossmatch 03/09/20 03/09/20 03/10/20 16:30 23:19 03:25 WBC 8.1 RBC 2.74 L Hgb 7.9 L 8.1 L Hct 24.9 L 25.1 L MCV 91.6 MCH 29.6 MCHC 32.3 RDW Std Deviation 46.5 H RDW Coeff of Ena 14.2 Plt Count 342 MPV 10.8 Immature Gran % (Auto) 3.000 H Neut % (Auto) 69.5 Lymph % (Auto) 15.0 L Mckean % (Auto) 10.8 H Eos % (Auto) 1.0 Baso % (Auto) 0.7 Absolute Neuts (auto) 5.6 Absolute Lymphs (auto) 1.21 Nucleated RBC % 0 Sodium Potassium Chloride Carbon Dioxide Anion Gap BUN Creatinine Estim Creat Clear Calc Est GFR (MDRD) Af Amer Est GFR (MDRD) Non-Af BUN/Creatinine Ratio Glucose Calcium Magnesium COVID-19 (HANNY) POC Glucose 168 H Crossmatch 03/10/20 03/10/20 03/10/20 03:25 05:11 15:47 WBC RBC Hgb Hct MCV MCH MCHC RDW Std Deviation RDW Coeff of Ena Plt Count MPV Immature Gran % (Auto) Neut % (Auto) Lymph % (Auto) Mckean % (Auto) Eos % (Auto) Baso % (Auto) Absolute Neuts (auto) Absolute Lymphs (auto) Nucleated RBC % Sodium 145 Potassium 4.2 Chloride 118 H Carbon Dioxide 21.0 Anion Gap 6 BUN 35 H Creatinine 1.25 Estim Creat Clear Calc 56.06 Est GFR (MDRD) Af Amer 73 Est GFR (MDRD) Non-Af 60 BUN/Creatinine Ratio 28.0 H Glucose 152 H Calcium 7.6 L Magnesium COVID-19 (HANNY) POC Glucose 163 H 181 H Crossmatch 03/10/20 03/11/20 03/11/20 20:23 04:05 04:05 WBC 9.4 RBC 2.50 L Hgb 7.4 L Hct 22.5 L MCV 90.0 MCH 29.6 MCHC 32.9 RDW Std Deviation 46.0 H RDW Coeff of Ena 14.3 Plt Count 260 MPV 10.6 Immature Gran % (Auto) Neut % (Auto) Lymph % (Auto) Mckean % (Auto) Eos % (Auto) Baso % (Auto) Absolute Neuts (auto) Absolute Lymphs (auto) Nucleated RBC % Sodium 141 Potassium 4.7 Chloride 114 H Carbon Dioxide 23.0 Anion Gap 4 L BUN 28 H Creatinine 1.12 Estim Creat Clear Calc 62.56 Est GFR (MDRD) Af Amer 83 Est GFR (MDRD) Non-Af 68 BUN/Creatinine Ratio 25.0 H Glucose 198 H Calcium 7.3 L Magnesium 1.8 COVID-19 (HANNY) POC Glucose 190 H Crossmatch Microbiology 03/09/20 09:00 Mucosa - Nose SARS-CoV-2 Antigen (Rapid) - Final SARS-CoV-2 (COVID 19) Clinical Impression(s) from Imaging Studies Cervical Spine CT 12/12/20 23:34 IMPRESSION: Negative unenhanced CT examination of the cervical spine for acute fracture. Electronically Signed: Derick Louis, at 1:00 EST Tel , Service support , Chest X-Ray 03/08/20 23:46 IMPRESSION: Persistent obscuration of the right costophrenic angle likely due to underlying right pleural effusion and associated atelectasis. No significant radiographic change. Electronically Signed: Derick Louis, at 0:01 EST Tel , Service support , Brain CT 03/08/20 23:55 IMPRESSION: Chronic involutional changes of the brain. No interval change. Electronically Signed: Derick Louis, at 0:55 EST Tel , Service support , Medical Necessity - Tobacco Use Smoking Status: Never smoker Assessment/Plan All Active Problems (Last Reviewed 03/09/20 @ 02:[address] Scott Sheridan MD) Acute blood loss anemia (Acute) Lower GI bleed (Acute) RECOMMENDATIONS: 1. Transfuse additional unit of packed red blood cells this morning. Check H&H posttransfusion. 2. Continue PPI therapy twice daily. 3. Await additional general surgery recommendations. 4. Avoid Decadron over concerns for GI bleeding. 5. Recommend CPAP therapy on a nightly basis, given history of JOANNA. IMPRESSIONS: 1. Syncope secondary to hemorrhagic shock secondary to acute blood loss anemia due to presumed GI bleed Continue current supportive measures with packed red blood cells and PPI therapy as ordered. Endoscopic evaluation revealed findings concerning for diverticular bleed. The patient will be continued on the aforementioned therapy with plans to transfuse an additional unit of packed red blood cells this morning. Check H&H posttransfusion. Await additional recommendations per general surgery. 2. COVID-19 infection The patient was incidentally found to be positive for coronavirus on admission to the hospital. However, he is currently maintaining oxygen saturations on room air in the high 90s. No additional therapeutic intervention is indicated at this time. 3. Chronic diastolic CHF/CKD stage III The patient appears to be stable from a cardiac perspective. However, lis inopril and Lasix will be held, given tenuous hemodynamics. 4. Diabetes mellitus/recent fall/prolonged QTC/sleep apnea Complicates care, management, recovery and prognosis. Encouraged use of nocturnal CPAP therapy. This note was generated with [employer] dictation software. It may contain incorrect words, spelling, and punctuation that were not noted in checking the note before signing. Inpatient E&M: 53604 Subs Hosp L3
--- NOTE | 2020-03-11 07:21 | PCM.PN.HOSP ---
Patient Problems: Active and Suspected Problems (Last Reviewed 03/09/20 @ 02:[address] Scott Sheridan MD) Acute blood loss anemia (Acute) Lower GI bleed (Acute) Reason for Visit: GI bleed Suspected diverticular bleed Subjective: Patient underwent EGD and colonoscopy by Dr. Valeria De La Fuente on 03/10/2020 upper EGD did not reveal any source of bleeding. Colonoscopy however noted no definitive source of bleeding however blood was found throughout the entire colon. There was a high suspicion for diverticular bleed. Patient subsequently started on Zosyn Objective: GENERAL: cooperative HEENT: Bruising at the bridge of the nose EYES; Anicteric, Normal Conjunctiva NECK; supple, normal thyroid, RESPIRATORY: Diminished to auscultation CARDIOVASCULAR: Regular S1 S2, GI: soft, normoactive bowel sounds, : No Renal angle tenderness; EXTREMITIES: Skin tear at the back of the right hand MUSCULOSKELETAL: no muscle waisting NEURO: Awake; no lateralizing signs. SKIN: No Rash PSYCH; Flat affect Vitals/I&O's: Vital Signs Temp Pulse Resp BP Pulse Ox 97.8 F 86 17 112/64 100 03/11/20 05:09 03/11/20 05:09 03/11/20 05:09 03/11/20 05:09 03/11/20 05:09 Oxygen Flow Rate (L/min) 6 Oxygen Delivery Method Room Air Weight: 91.6 kg Body Mass Index (BMI) 27.3 Intake and Output for Last 24 Hours 03/09/20 03/10/20 03/11/20 23:59 23:59 23:59 Intake Total 3066 / 3066 2981.5 / 3101.5 1410 / 1410 Output Total 1150 / 1150 875 / 1125 1050 / 1050 Balance 1916 / 1916 2106.5 / 1976.5 360 / 360 Microbiology Past 72 Hours 03/09/20 09:00 Mucosa - Nose SARS-CoV-2 Antigen (Rapid) - Final SARS-CoV-2 (COVID 19) Laboratory Results 03/08/20 23:38: Crossmatch See Detail 03/08/20 23:38: Crossmatch See Detail 03/10/20 05:11: POC Glucose 163 H 03/10/20 15:47: POC Glucose 181 H 03/10/20 20:23: POC Glucose 190 H 03/11/20 04:05: WBC 9.4, RBC 2.50 L, Hgb 7.4 L, Hct 22.5 L, MCV 90.0, MCH 29.6, MCHC 32.9, RDW Std Deviation 46.0 H, RDW Coeff of Ena 14.3, Plt Count 260, MPV 10.6 03/11/20 04:05: Sodium 141, Potassium 4.7, Chloride 114 H, Carbon Dioxide 23.0, Anion Gap 4 L, BUN 28 H, Creatinine 1.12, Estim Creat Clear Calc 62.56, Est GFR (MDRD) Af Amer 83, Est GFR (MDRD) Non-Af 68, BUN/Creatinine Ratio 25.0 H, Glucose 198 H, Calcium 7.3 L, Magnesium 1.8 Current Medications Pantoprazole Sodium 40 mg/ (Sodium Chloride) 110 mls @ 330 mls/hr IV Q12 KEVIN Last Infusion: 03/10/20 20:45 Dose: Infused Documented by: Sodium Chloride () 250 mls @ 15 mls/hr IV .[id number] PRN PRN Reason: Saline Flush Last Infusion: 03/10/20 19:52 Dose: Infused Documented by: Sodium Chloride () 250 mls @ 15 mls/hr IV .[id number] PRN PRN Reason: Additional IVPB Infusion Potassium Chloride/Dextrose/Sod Cl (Kcl 20meq In D5.45ns 1000ml) 1,000 mls @ 150 mls/hr IV .[id number] [facility] Last Admin: 03/11/20 05:27 Dose: 150 mls/hr Documented by: Piperacillin Sod/Tazobactam (Sod 3.375 gm/ Sodium Chloride) 50 mls @ 12.5 mls/hr IV Q8 [facility] Last Admin: 03/11/20 05:05 Dose: 12.5 mls/hr Documented by: Insulin Human Lispro (Insulin Lispro 100 Unit/Ml Insuln.Pen) 0 unit SC ACHS [facility]; Protocol Last Admin: 03/10/20 20:28 Dose: 2 units Documented by: Lidocaine (Lidocaine 5% Patch) 1 patch TOPICAL DAILY [facility]; Protocol Last Admin: 03/10/20 13:42 Dose: 1 patch Documented by: Prochlorperazine Edisylate (Prochlorperazine 10 Mg/2 Ml Vial) 5 mg IV Q6H PRN PRN PRN Reason: NAUSEA/VOMITING Last Admin: 03/10/20 00:08 Dose: 5 mg Documented by: Sodium Chloride (0.9% Saline Lock 10 Ml Syringe) 10 - 40 ml IV UD PRN PRN Reason: SALINE FLUSH Last Admin: 03/11/20 05:06 Dose: 20 ml Documented by: STROKE Vital Signs/Narrative: Vital Signs Temp Pulse Resp BP Pulse Ox 03/11/20 05:09 97.8 F 86 17 112/64 100 03/11/20 04:01 90 Medical Necessity - Tobacco Use Smoking Status: Never smoker Assessment/Plan All Active Problems (Last Reviewed 03/09/20 @ 02:[address] Scott Sheridan MD) Acute blood loss anemia (Acute) Lower GI bleed (Acute) Patient is a 74-year-old lady with recent diagnosis of acute COVID-19 who was brought in with lightheadedness falls.. He had also complained of hemoptysis as well as bloody diarrhea for 3 days prior to his admission. An assessment of acute GI bleed was made admitted to the intensive care unit resuscitated with IV fluid with consultation placed to general surgery with endoscopic evaluation planned for 03/10/2020 1. Acute GI bleed ?Admitted to the intensive care unit typed and crossmatched. Patient has been transfused with a total of 2 unit PRBC following admission. He still remains symptomatic and having active rectal bleed. An order was given for patient to be transfused with 2 additional unit. Consult was placed to general surgery patient has been seen by Dr. Valeria Rodriguez plan is for patient to undergo endoscopic evaluation -03/11/2020;Patient underwent EGD and colonoscopy by Dr. Valeria De La Fuente on 03/10/2020 upper EGD did not reveal any source of bleeding. Colonoscopy however noted no definitive source of bleeding however blood was found throughout the entire colon. There was a high suspicion for diverticular bleed. Patient subsequently started on Zosyn 2. Hemorrhagic shock secondary to above Patient resuscitated with IV fluid in addition to blood transfusion 3. Acute blood loss anemia ?Secondary to GI bleed management as discussed above -03/11/2020. An additional unit was transfused on 03/11/2020 (patient still hypotensive and hemoglobin is down to 7.4) bringing the total number of PRBC transfusion since admission to 4. 4. Acute COVID-19 ?patient was apparently asymptomatic 5. Acute kidney injury ?Secondary to hypovolemia started on IV fluid with subsequent monitoring of electrolyte 6. Acute congestive heart failure with preserved ejection fraction ?Currently asymptomatic 6. DVT prophylaxis bilateral SCDs Inpatient E&M: 28211 [facility] Hosp L3
[2020-03-11] MEDS: Insulin Lispro 100 UNIT/ML INSULN.PEN SC ×2 (08:53→14:32)
[2020-03-11] MEDS: Lidocaine 5% Patch 1 PATCH TOPICAL (08:54)
[2020-03-11 09:11] LABS: Bedside Glucose 177 mg/dL (70-110)
--- NOTE | 2020-03-11 10:43 | CASEMGMT ---
Insurance Review for [facility]: [facility], [facility], [facility], [facility], [place], [facility], [facility]: [facility], [facility]
[2020-03-11 12:36] LABS: Bedside Glucose 230 mg/dL (70-110)
--- NOTE | 2020-03-11 13:08 | DCINST_ITS ---
- Discharge Diagnoses Current Active Problems: Current Active and Chronic Problems (Last Reviewed 03/09/20 @ 02:[address] Scott Sheridan MD) Acute blood loss anemia (Acute) Lower GI bleed (Acute) JOANNA (obstructive sleep apnea) (Chronic) CHF (congestive heart failure) (Chronic) Pleural effusion (Chronic) Snoring (Chronic) Hyperlipidemia (Chronic) Diabetes mellitus, type II (Chronic) Family history of cardiovascular disease (Chronic) TMJ arthralgia (Chronic) Hypertension (Chronic) Gastroesophageal reflux disease (Chronic) Cerumen impaction (Chronic) You will use the following diet at home:: Calorie/Carbohydrate Controlled (specify 1200, 1400, etc) - 1800, Clear liquid Your food should be the consistency of: Regular Discharge Activity: Return to Normal Activity Allergies/Adverse Reactions: Allergies No Known Allergies Allergy (Verified 03/08/20 22:51) Medications to take at Discharge Simvastatin [Zocor] 20 mg PO QHS 05/21/15 metFORMIN HCl [Glucophage] 500 mg PO BID 05/21/15 Aspirin [Aspirin EC] 81 mg PO DAILY@0800 08/23/19 Atenolol [Tenormin] 25 mg PO BID 08/23/19 Cimetidine 400 mg PO BID 08/23/19 Linagliptin [Tradjenta] 5 mg DAILY 08/23/19 lisinopril 40 mg tablet 40 mg PO DAILY tab 09/13/19 Furosemide [Lasix] 20 mg PO DAILY 03/09/20 Primary Care Physician: Allen Morrison MD [Primary Care Provider] - Test Results: Test results from this visit will be discussed in further detail at your follow- up appointment, if applicable. Proposed Discharge Date: 03/11/20
--- NOTE | 2020-03-11 13:11 | DS.PCM_ITS ---
Discharge Date and Diagnosis - Problem List Patient Problems: Active and Suspected Problems (Last Reviewed 03/09/20 @ 02:[address] Scott Sheridan MD) Acute blood loss anemia (Acute) Lower GI bleed (Acute) Date of Admission: 03/09/20 Date of Discharge: 03/11/20 - Primary Discharge Diagnosis Acute Problems: Active Problems (Last Reviewed 03/09/20 @ 02:[address] Scott Sheridan MD) Acute blood loss anemia (Acute) Lower GI bleed (Acute) - Secondary Discharge Diagnosis Chronic Problems: Chronic Problems (Last Reviewed 03/09/20 @ 02:[address] Scott Sheridan MD) JOANNA (obstructive sleep apnea) (Chronic) CHF (congestive heart failure) (Chronic) Pleural effusion (Chronic) Snoring (Chronic) Hyperlipidemia (Chronic) Diabetes mellitus, type II (Chronic) Family history of cardiovascular disease (Chronic) TMJ arthralgia (Chronic) Hypertension (Chronic) Gastroesophageal reflux disease (Chronic) Cerumen impaction (Chronic) Hospital Course and Treatment Operations: None Summary of Care Provided: Patient is a 74-year-old lady with recent diagnosis of acute COVID-19 who was brought in with [facility].. He had also complained of hemoptysis as well as bloody diarrhea for 3 days prior to his admission. An assessment of acute GI bleed was made admitted to the intensive care unit resuscitated with IV fluid with consultation placed to general surgery with endoscopic evaluation planned for 03/10/2020 1. Acute GI bleed ?Admitted to the intensive care unit typed and crossmatched. Patient has been transfused with a total of 2 unit PRBC following admission. He still remains symptomatic and having active rectal bleed. An order was given for patient to be transfused with 2 additional unit. Consult was placed to general surgery patient has been seen by Dr. Valeria Rodriguez plan is for patient to undergo endoscopic evaluation -03/11/2020;Patient underwent EGD and colonoscopy by Dr. Valeria De La Fuente on 03/10/2020 upper EGD did not reveal any source of bleeding. Colonoscopy however noted no definitive source of bleeding however blood was found throughout the entire colon. There was a high suspicion for diverticular bleed. Patient subsequently started on Zosyn -Patient experiencing continuous lower GI bleed with no availability of interventional radiology. Call was placed and patient accepted for transfer to [facility] 2. Hemorrhagic shock secondary to above Patient resuscitated with IV fluid in addition to blood transfusion 3. Acute blood loss anemia ?Secondary to GI bleed management as discussed above -03/11/2020. An additional unit was transfused on 03/11/2020 (patient still hypotensive and hemoglobin is down to 7.4) bringing the total number of PRBC tr ansfusion since admission to 4. 4. Acute COVID-19 ?patient was apparently asymptomatic -Tested positive with PCR on 03/09/2020 5. Acute kidney injury ?Secondary to hypovolemia started on IV fluid with subsequent monitoring of electrolyte 6. Acute congestive heart failure with preserved ejection fraction ?Currently asymptomatic 7. Dyslipidemia -Patient is on statin therapy, continued at home dose 8. Diabetes mellitus type 2 ?Patient oral hypoglycemic agent held please on Accu-Cheks before meals and at bedtime with sliding scale coverage 6. DVT prophylaxis bilateral SCDs Patient Problems: Active and Suspected Problems (Last Reviewed 03/09/20 @ 02:[address] Scott Sheridan MD) Acute blood loss anemia (Acute) Lower GI bleed (Acute) - Physical Exam Vitals/I&O's: Vital Signs Temp Pulse Resp BP Pulse Ox 97.8 F 94 17 112/64 100 03/11/20 05:09 03/11/20 11:08 03/11/20 05:09 03/11/20 05:09 03/11/20 07:50 Oxygen Flow Rate (L/min) 6 Oxygen Delivery Method Room Air Weight: 91.6 kg Body Mass Index (BMI) 27.3 Intake and Output for Last 24 Hours 03/09/20 03/10/20 03/11/20 23:59 23:59 23:59 Intake Total 3066 / 3066 2981.5 / 3101.5 1932.5 / 1932.5 Output Total 1150 / 1150 875 / 1125 1350 / 1350 Balance 1916 / 191 2106.5 / 1976.5 582.5 / 582.5 General: Alert HEENT: Atraumatic Lungs: Diminished Cardiovascular: Regular rate, Regular Rhythm Psych/Mental Status: Normal Affect Microbiology Past 72 Hours 03/09/20 09:00 Mucosa - Nose SARS-CoV-2 Antigen (Rapid) - Final SARS-CoV-2 (COVID 19) Laboratory Results 12/12/20 23:38: Crossmatch See Detail 03/08/20 23:38: Crossmatch See Detail 03/10/20 15:47: POC Glucose 181 H 03/10/20 20:23: POC Glucose 190 H 03/11/20 04:05: WBC 9.4, RBC 2.50 L, Hgb 7.4 L, Hct 22.5 L, MCV 90.0, MCH 29.6, MCHC 32.9, RDW Std Deviation 46.0 H, RDW Coeff of Ena 14.3, Plt Count 260, MPV 10.6 03/11/20 04:05: Sodium 141, Potassium 4.7, Chloride 114 H, Carbon Dioxide 23.0, Anion Gap 4 L, BUN 28 H, Creatinine 1.12, Estim Creat Clear Calc 62.56, Est GFR (MDRD) Af Amer 83, Est GFR (MDRD) Non-Af 68, BUN/Creatinine Ratio 25.0 H, Glucose 198 H, Calcium 7.3 L, Magnesium 1.8 03/11/20 08:30: POC Glucose 177 H 03/11/20 12:17: POC Glucose 230 H Current Medications Pantoprazole Sodium 40 mg/ (Sodium Chloride) 110 mls @ 330 mls/hr IV Q12 KEVIN Last Admin: 03/11/20 11:05 Dose: 330 mls/hr Documented by: Sodium Chloride () 250 mls @ 15 mls/hr IV .[id number] PRN PRN Reason: Saline Flush Last Infusion: 03/10/20 19:52 Dose: Infused Documented by: Sodium Chloride () 250 mls @ 15 mls/hr IV .[id number] PRN PRN Reason: Additional IVPB Infusion Piperacillin Sod/Tazobactam (Sod 3.375 gm/ Sodium Chloride) 50 mls @ 12.5 mls/hr IV Q8 KEVIN Last Admin: 03/11/20 05:05 Dose: 12.5 mls/hr Documented by: Insulin Human Lispro (Insulin Lispro 100 Unit/Ml Insuln.Pen) 0 unit SC ACHS KEVIN; Protocol Last Admin: 03/11/20 08:53 Dose: 2 units Documented by: Lidocaine (Lidocaine 5% Patch) 1 patch TOPICAL DAILY KEVIN; Protocol Last Admin: 03/11/20 08:54 Dose: 1 patch Documented by: Prochlorperazine Edisylate (Prochlorperazine 10 Mg/2 Ml Vial) 5 mg IV Q6H PRN PRN PRN Reason: NAUSEA/VOMITING Last Admin: 03/10/20 00:08 Dose: 5 mg Documented by: Sodium Chloride (0.9% Saline Lock 10 Ml Syringe) 10 - 40 ml IV UD PRN PRN Reason: SALINE FLUSH Last Admin: 03/11/20 05:06 Dose: 20 ml Documented by: Discharge Diet: Light diet - advance as tolerated Discharge Activity: Return to Normal Activity Home Medications: Medications to take at Discharge Simvastatin [Zocor] 20 mg PO QHS 05/21/15 metFORMIN HCl [Glucophage] 500 mg PO BID 05/21/15 Aspirin [Aspirin EC] 81 mg PO DAILY@0800 08/23/19 Atenolol [Tenormin] 25 mg PO BID 08/23/19 Cimetidine 400 mg PO BID 08/23/19 Linagliptin [Tradjenta] 5 mg DAILY 08/23/19 lisinopril 40 mg tablet 40 mg PO DAILY tab 09/13/19 Furosemide [Lasix] 20 mg PO DAILY 03/09/20 Primary Care Physician: Allen Morrison MD [Primary Care Provider] - Disposition: Acute care Hospital Minutes spent on discharge:: 45 Patient Condition:: Stable Medical Necessity - Tobacco Use Smoking Status: Never smoker Meaningful Use Info Meaningful Use Diagnoses (Choose all that apply): None applicable Inpatient E&M: 64547 Disch Hosp
== END 2020-03-11 15:25 | disposition short-term general hospital (02) | DRG 377 ==
LOC: ED 03-09 00:05 → ICU 03-09 01:58
PROVIDERS: Internal Medicine Critical Care Medicine; Surgery; Admitting Provider Hospitalist; Emergency Provider Emergency Medicine; PCP Internal Medicine; Referring Provider Hospitalist; Visit Provider Internal Medicine
PROC: 0DJD8ZZ Inspection of Lower Intestinal Tract, Via Natural or Artificial Opening Endoscopic (ICD-10-PCS; CPT 45378; principal; 2020-03-10 11:25)
DX: K92.1 Melena (principal); U07.1 COVID-19; I50.33 Acute on chronic diastolic (congestive) heart failure; R57.8 Other shock; D62 Acute posthemorrhagic anemia; I13.0 Hypertensive heart and chronic kidney disease with heart failure and stage 1 through stage 4 chronic kidney disease, or unspecified chronic kidney disease; N17.9 Acute kidney failure, unspecified; E87.2 Acidosis; R04.2 Hemoptysis; K92.0 Hematemesis; G47.33 Obstructive sleep apnea (adult) (pediatric); N18.30 Chronic kidney disease, stage 3 unspecified; E78.5 Hyperlipidemia, unspecified; E11.22 Type 2 diabetes mellitus with diabetic chronic kidney disease; Z82.49 Family history of ischemic heart disease and other diseases of the circulatory system; M26.629 Arthralgia of temporomandibular joint, unspecified side; K21.9 Gastro-esophageal reflux disease without esophagitis; R29.6 Repeated falls; H61.23 Impacted cerumen, bilateral; E11.65 Type 2 diabetes mellitus with hyperglycemia; E86.1 Hypovolemia; K57.31 Diverticulosis of large intestine without perforation or abscess with bleeding; K64.8 Other hemorrhoids; I95.1 Orthostatic hypotension; M54.2 Cervicalgia; S00.31XA Abrasion of nose, initial encounter; W19.XXXA Unspecified fall, initial encounter; Z79.82 Long term (current) use of aspirin; Z79.84 Long term (current) use of oral hypoglycemic drugs; Z79.899 Other long term (current) drug therapy
CPT/HCPCS: 36415; 70450; 71045; 72125; 80048; 81001; 82728; 82962; 83540; 83550; 83605; 83735; 84484; 85014; 85018; 85025; 85027; 85045; 85610; 86850; 86900; 86901; 86920; 87040; 87426; 87635; 93005; 97802; 99285; J7030; J7040; J7050; P9016; A4216; J2405; J3490; U0002

== ENCOUNTER → 2020-05-22 12:12 | Outpatient (CLI) | payer MEDICARE, SELFPAY ==
[2020-05-15 15:35] VITALS: BMI 28.5
== END ==
PROVIDERS: PCP Internal Medicine; Referring Provider Internal Medicine Cardiovascular Disease; Visit Provider Internal Medicine Cardiovascular Disease
DX: I48.0 Paroxysmal atrial fibrillation (principal); I10 Essential (primary) hypertension; E78.2 Mixed hyperlipidemia
CPT/HCPCS: 93225; 93226

== ENCOUNTER → 2020-05-23 12:44 | Outpatient (CLI) | payer MEDICARE, SELFPAY ==
[2020-05-15 15:35] VITALS: BMI 28.5
--- NOTE | 2020-05-23 12:46 | ECHOCS_ITS ---
Reason For Study: Afib/Flutter Procedure This was a 2D Doppler, Color Flow transthoracic echocardiogram. Very technically difficult study. Echo images attempted with patient in multiple positions. Limited views obtained. The study was technically difficult. Contrast injection was performed. Exam performed in department. Left Ventricle Based upon the 2D echocardiographic contrast enhanced images obtained there appears to be grossly normal left ventricular size, wall motion, and systolic function. The estimated ejection fraction is 55 %. No evidence for diastolic dysfunction. Right Ventricle Based upon the 2D echocardiographic and contrast enhanced images obtained there appears to be grossly normal right ventricular size and systolic function. Atria The left atrium is not well visualized. The right atrium is not well visualized. The atrial septum is not well visualized. Mitral Valve Mitral valve not well visualized. Tricuspid Valve The tricuspid valve is not well visualized. Aortic Valve The aortic valve is not well visualized. Pulmonic Valve The pulmonic valve is not well visualized. Great Vessels The aortic root is not well visualized. Pericardium/Pleural No pericardial effusion. Medication 22 gauge I.V. with prn adaptor inserted into right arm. Diluted definity 7ml given slow IV push to enhance endocardial definition. Time Measurements MV dec time: 0.26 sec Doppler Measurements & Calculations MV E max cali: 56.6 cm/sec Lat Peak E' Cali: 9.9 cm/sec Med Peak E' Cali: 9.0 cm/sec MV A max cali: 66.0 cm/sec E/E' lat: 5.7 E/E' med: 6.3 MV E/A: 0.86 MV V2 max: 69.0 cm/sec MV P1/2t max cali: 53.9 cm/sec MV max P.9 mmHg MV P1/2t: 107.5 msec MV V2 mean: 38.5 cm/sec MV mean P.70 mmHg MV dec slope: 146.9 cm/sec2 MV V2 VTI: 17.4 cm MVA(P1/2t): 2.0 cm2 Interpretation Summary The study was technically difficult. Contrast injection was performed. Based upon the 2D echocardiographic contrast enhanced images obtained there appears to be grossly normal left ventricular size, wall motion, and systolic function. The estimated ejection fraction is 55 %. No evidence for diastolic dysfunction. Ordering Physician: Ivan Alex Referring Physician: Allen Morrison Performed By: Andres Squires RCS
== END ==
PROVIDERS: PCP Internal Medicine; Referring Provider Internal Medicine Cardiovascular Disease; Visit Provider Internal Medicine Cardiovascular Disease
DX: I48.0 Paroxysmal atrial fibrillation (principal); I48.92 Unspecified atrial flutter; I47.2 Ventricular tachycardia; I11.0 Hypertensive heart disease with heart failure; I50.9 Heart failure, unspecified; E78.2 Mixed hyperlipidemia
CPT/HCPCS: 93306; Q9957; A4216; C8929

== ENCOUNTER → 2020-05-27 11:49 | Outpatient (CLI) | payer MEDICARE, SELFPAY ==
[2020-05-15 15:35] VITALS: BMI 28.5
[2020-05-27 12:54] LABS: Anion Gap 8 (5-15); BUN 23 mg/dL (7-18); BUN/Creat Ratio 15.1 RATIO (10-20); Calcium,Total 9.1 mg/dL (8.5-10.1); Chloride 109 mmol/L (98-107); Creatinine, Serum 1.52 mg/dL (0.70-1.30); EST Glomerular Filtration Rate 48 mL/min (>60); Est Glom Filt Rate - Afr Amer 58 mL/min (>60); Glucose 120 mg/dL (74-106); Magnesium 1.9 mg/dL (1.6-2.6); Sodium Level 141 mmol/L (136-145)
== END ==
PROVIDERS: PCP Internal Medicine; Referring Provider Internal Medicine Cardiovascular Disease; Visit Provider Internal Medicine Cardiovascular Disease
DX: I47.2 Ventricular tachycardia (principal); I11.0 Hypertensive heart disease with heart failure; I50.9 Heart failure, unspecified; I48.0 Paroxysmal atrial fibrillation; E78.2 Mixed hyperlipidemia
CPT/HCPCS: 36415; 80048; 83735

== ENCOUNTER → 2020-06-03 06:57 | Outpatient (CLI) | payer MEDICARE, SELFPAY ==
[2020-05-15 15:35] VITALS: BMI 28.5
--- NOTE | 2020-06-03 08:29 | STRESSREP ---
Stress Test Report Date: 06-03-2020 Procedure: Pharmacologic stress nuclear imaging study Indications: Atrial fibrillation; nonsustained ventricular tachycardia; CHF Consent: Per the patient Procedure: The patient underwent pharmacologic (Regadenoson 0.4mg ) evaluation with a peak heart rate of 82 beats per minute (55%predicted maximal heart rate) and a peak blood pressure of 120/80 mmHg. The baseline ECG demonstrated sinus rhythm; nonspecific ST/T wave abnormality. The peak pharmacologic ECG demonstrated no obvious ECG changes. There were no cardiac dysrhythmias pretest, during pharmacologic infusion, or recovery. There was no complaint of chest discomfort during pharmacologic infusion or recovery. The examination was discontinued secondary to completion of protocol. Impression: 1. Pharmacologic (Regadenoson) evaluation 2. Peak pharmacologic ECG with no obvious ECG changes. 3. There were no cardiac dysrhythmias pretest, during pharmacologic infusion, or recovery. 4. Nuclear images pending Myocardial perfusion imaging study: Technique: The patient was injected with 13.6 millicuries of technetium 99m Cardiolite and subsequently rest SPECT Cardiolite nuclear imaging was obtained in the horizontal long, vertical long, and short axis views. The patient underwent pharmacologic (Regadenoson) evaluation with a peak heart rate of 82 beats per minute (55% percent predicted maximal heart rate) and a peak blood pressure of 120/80 mmHg. The patient was injected with 43.8 millicuries of technetium 99m Cardiolite and subsequently stress SPECT Cardiolite nuclear imaging was obtained in the horizontal long, vertical long, and short axis views. A gated Cardiolite study at peak stress was obtained. Interpretation: Rest and stress SPECT Cardiolite nuclear imaging status post realignment, normalization, and attenuation correction demonstrate status post stress a small area of diminished tracer uptake in the mid anterior segments. There is end systolic thickening and brightening. The gated Cardiolite study demonstrates myocardial thickening and inward wall motion. The reported LVEF is 61%. Impression: 1. Rest and stress SPECT Cardiolite nuclear imaging demonstrate status post stress a small area of diminished tracer uptake in the mid anterior segments concerning for an area of stress-induced myocardial ischemia. 2. The gated Cardiolite study reports an LVEF of 61%. This note was generated with [email or web address] software. It may contain incorrect words, spelling, and punctuation that were not noted in checking the note before signing.
== END ==
PROVIDERS: PCP Internal Medicine; Referring Provider Internal Medicine Cardiovascular Disease; Visit Provider Internal Medicine Cardiovascular Disease
DX: R94.31 Abnormal electrocardiogram [ECG] [EKG] (principal); I47.2 Ventricular tachycardia; I48.0 Paroxysmal atrial fibrillation; E78.2 Mixed hyperlipidemia; I50.9 Heart failure, unspecified; I11.0 Hypertensive heart disease with heart failure
CPT/HCPCS: 78452; 93017; A9500; A4216; J2785

== ENCOUNTER 2020-07-08 07:58 | Day surgery (SDC) | payer MEDICARE, SELFPAY ==
[2020-06-26 13:16] VITALS: BMI 32.4
[2020-07-02 09:32] LABS: Absolute Lymphocyte Count 1.02 X10^3/uL (0.83-4.51); Absolute Neutrophil Count 4.9 X10^3/uL (2.0-7.7); Basophil# 0.09 X10^3/uL; Basophil% 1.2 % (0-1); Eosinophil# 0.53 X10^3/uL; Hemoglobin 11.9 g/dL (13.0-16.5); Lymphocyte # 1.02 X10^3/ul (4.0); Lymphocyte % 13.5 % (19-41); Mean Corp Hgb Conc 30.5 g/dL (32-36); Mean Corpuscular Hgb 25.2 pg (27.0-32.0); Mean Corpuscular Volume 82.6 fL (80-94); Mean Platelet Vol. 10.4 fl (6.2-12.0); Monocyte# 0.96 X10^3/uL; Monocyte% 12.7 % (0-10); NRBC Flagged by Analyzer 0 % (0-5); Neutrophil # 4.91 X10^3/uL (2.7-7.7); Neutrophil % 65.3 % (47-70); Platelet Count 325 K/mm3 (150-450); RBC Distribution Width CV 14.7 % (11.6-14.6); RBC Distribution Width SD 44.4 fl (35.1-43.9); Red Blood Count 4.72 M/mm3 (4.6-6.2); White Blood Count 7.5 K/mm3 (4.4-11.0)
[2020-07-02 09:56] LABS: International Normalized Ratio 1.1; Prothrombin Time (Protime)PT. 13.8 SECONDS (11.7-14.9)
[2020-07-02 10:01] LABS: Anion Gap 3 (5-15); BUN 24 mg/dL (7-18); BUN/Creat Ratio 16.1 RATIO (10-20); Calcium,Total 9.3 mg/dL (8.5-10.1); Chloride 106 mmol/L (98-107); Creatinine, Serum 1.49 mg/dL (0.70-1.30); EST Glomerular Filtration Rate 49 mL/min (>60); Est Glom Filt Rate - Afr Amer 59 mL/min (>60); Glucose 116 mg/dL (74-106); Potassium 4.1 mmol/L (3.5-5.1); Sodium Level 136 mmol/L (136-145)
[2020-07-07 09:58] VITALS: BMI 32.4
--- NOTE | 2020-07-08 08:00 | HP_ITS ---
HPI HPI History of Present Illness Surgical H&P: Yes Details: This is a 74-year-old white male who presents today for outpatient cardiovascular consultation based upon a history of paroxysmal atrial fibrillation that occurred during a COVID-19 hospitalization associated with concerns of gastrointestinal bleeding requiring 6 units of PRBC transfusion which was evaluated at [facility]. The patient states the best of his knowledge she has no definitive cardiovascular disease. He states that in March 2006 he underwent diagnostic cardiac catheterization in [facility]. At that time he appeared to have, based upon the images he brings with him, no angiographically significant CAD. Pt denies arm, jaw, or neck discomfort. His exercise tolerance is stable and is improving. Pt denies symptoms of CHF, lightheadedness, dizziness, near syncopal or syncopal episodes. Pt denies edema or claudication issues. Pt. denies orthopnea, PND, blood in urine, blood in stool, myalgia, or unexplainable fatigue. He states intermittent chest pain. This is not new and has been ongoing since February 2020. This is not worsening. This occurs after eating. This is short lasting and resolves on its own. He states with activity such as walking he notes bilateral shoulder blade pain. This too resolves with rest and reposition. He continues with daily palpitations. This is not worsening. Intake Vital Signs 06/26/20 Height 5 ft 7 in 06/26/20 Weight: 207 lb 06/26/20 BMI 32.4 06/26/20 BP 119/71 06/26/20 Blood Pressure Location Lt brachial 06/26/20 Position Sitting 06/26/20 Respiration 18 06/26/20 Pulse 77 06/26/20 Pulse Source Monitor 06/26/20 Pulse Oximetry (%) 97 Intake Visit Reasons: Update H & P Beef Ribber Required: No Accompanied by: None Is patient in pain?: No Allergies levofloxacin [From Levaquin] Adverse Reaction (Severe, Verified 06/26/20 13:14) Nausea/Vom/Diarrhea verapamil Adverse Reaction (Severe, Verified 06/26/20 13:14) chest pain Medications Simvastatin [Zocor] 20 mg PO QHS 05/21/15 [History Confirmed 06/26/20] metFORMIN HCl [Glucophage] 500 mg PO BID 05/21/15 [History Confirmed 06/26/20] Cimetidine 400 mg PO BID 08/23/19 [History Confirmed 06/26/20] Linagliptin [Tradjenta] 5 mg DAILY 08/23/19 [History Confirmed 06/26/20] ferrous sulfate 325 mg (65 mg iron) tablet 325 mg PO TID tab 05/13/20 [History Confirmed 06/26/20] hydroxyzine pamoate 25 mg capsule 25 mg PO TID PRN 05/13/20 [History Confirmed 06/26/20] pantoprazole 40 mg tablet,delayed release 40 mg PO DAILY 05/15/20 [History Confirmed 06/26/20] metoprolol succinate 25 mg tablet,extended release 24 hr 50 mg PO DAILY tab 05/26/20 [History Confirmed 06/26/20] aspirin 81 mg tablet,delayed release 81 mg PO DAILY #90 tablet 06/26/20 [Rx Confirmed 06/26/20] clopidogrel 75 mg tablet 75 mg PO QDAY #90 tablet 06/26/20 [Rx Confirmed 06/26/20] [facility] Medical History (Updated 06/26/20 @ 15:30 by Laith Johnson SALES REPRESENTATIVE PRINTING, SALES REPRESENTATIVE PRINTING-C) NSVT (nonsustained ventricular tachycardia) (Acute) Mixed hyperlipidemia (Chronic) Diabetes mellitus, type II (Chronic) CKD (chronic kidney disease) stage 3, GFR 30-59 ml/min (Chronic) Paroxysmal atrial fibrillation (Chronic) CHF (congestive heart failure) (Chronic) Pleural effusion (Chronic) Chest tightness (Inactive) Snoring (Chronic) Sinus tachycardia (Inactive) Family history of cardiovascular disease (Chronic) TMJ arthralgia (Chronic) Hypertension (Chronic) Gastroesophageal reflux disease (Chronic) Cerumen impaction (Chronic) COVID-19 (Acute) Hyperlipidemia (Inactive) Nausea and vomiting in adult (Inactive) SOB (shortness of breath) (Inactive) TMJ (temporomandibular joint syndrome) (Inactive) Surgical History (Updated 05/16/20 @ 15:49 by Diane Sanon) History of hernia repair (Resolved) History of left heart catheterization (LHC) (Resolved ~04/11/06) Family History Father Myocardial infarction CVA (cerebral vascular accident) Mother Diabetes Other Cancer Heart disease Social History (Updated 06/26/20 @ 15:31 by Laith Johnson SALES REPRESENTATIVE PRINTING, SALES REPRESENTATIVE PRINTING-C) Smoking Status: Never smoker alcohol intake: never substance use type: does not use caffeine: No ROS Const Const: Negative for fatigue, weakness, body ache, fever(s) or chills ENT ENT: Negative for dizziness Cardio Chest Pain: Yes Palpitations: Yes Edema: Bilateral Muscle aches with walking: None Resp Respiratory: Negative for SOB with activity, SOB at rest, SOB orthopnea\SOB lying down or paroxysmal nocturnal dyspnea GI GI: Negative nausea, vomiting blood/hematemesis, bright, red blood in stools or black,tarry stools : Negative for hematuria or frequent nighttime urination/ nocturia Musc Musc: Negative for muscle aches/ myalgia Skin Skin: Negative non-healing lesions or rash Neuro Neuro: Negative for dizziness, lightheadedness, near syncope, syncope, orthostatic symptoms or weakness Endo Endo: Negative for fatigue Allergy Allergy/Immunology: Negative for rash Cardiology Exam Const Appearance: cooperative, healthy appearing, comfortable and no acute distress Nutritional Appearance: well nourished and obese Orientation: alert, awake and oriented x3 Head Head: normal to inspection Ears: hearing grossly normal bilaterally Nose: external nose normal Face and Sinus: face symmetric Mouth: oral mucosae normal Eyes General: appearance normal, both eyes and all related structures Eyelids: eyelids normal EOM: EOM intact bilaterally Neck Neck: normal visual inspection and no JVD Carotids: normal carotid upstroke Chest Chest inspection: normal inspection of the chest, symmetric chest movement and normal respiratory effort; negative cough Auscultation: Bilateral: Clear to Auscultation Cardio Rate: regular rate Rhythm: regular rhythm Heart sounds: S1 normal and S2 normal; negative rub, gallop or murmur GI GI: normal to inspection and obese Neuro General: alert, awake, oriented x3 and CN's II-XI intact bilaterally Skin Skin: no rashes or lesions noted Extremities Pulses: Normal: Right Posterior Tibial Pulse, Left Posterior Tibial Pulse, Right Radial Pulse, Left Radial Pulse Lower Extremity Edema: None: Bilateral Psych Psychological: normal affect Assessment & Plan 1. Abnormal cardiovascular stress test R94.39 Plan Underwent stress test on 06/03/2020 for concerns regards nonsustained ventricular tachycardia. His stress test was considered to be abnormal. After discussion today, it was decided to proceed with heart catheterization to assess further. His last heart catheterization in March 2006 showed minimal coronary artery disease. He was asked to begin aspirin and Plavix therapy in preparation of heart catheterization. He will continue with metoprolol succinate and simvastatin therapy. Orders Orders: Left Heart Cath/COR/LV Percut Today Basic Metabolic Profile (BMP) Today CBC W/Diff, Automated Today 2. Paroxysmal atrial fibrillation I48.0 Plan His EKG today in office shows sinus rhythm with a first-degree AV block at a rate of 77 bpm, LA interval 214, QTc 405, and QRS 84. He will continue with metoprolol for rate control. He is currently not on oral anticoagulation due to recent GI bleed. We will need to reconsider anticoagulation based on long-term rhythm. Orders Orders: 12 Lead EKG performed by BMS Today Basic Metabolic Profile (BMP) Today Partial Thromboplast Time Today 3. NSVT (nonsustained ventricular tachycardia) I47.2 Plan Because of this, he underwent a stress test. He will proceed with heart catheterization to assess coronary artery disease component. He will continue with current beta-dawood therapy. Orders Orders: Prothrombin Time w/INR Today 4. Hypertension, unspecified type I10 Plan Patient's blood pressure is well-controlled. We will continue to monitor. We will not make any medication regimen changes. 5. Mixed hyperlipidemia E78.2 Plan He will continue current statin medication. Orders Orders: Basic Metabolic Profile (BMP) Today 6. Acute blood loss anemia D62 Plan Because of this, he was asked to begin aspirin and Plavix and undergo CBC next week to ensure stability in respect to blood count. If his hemoglobin remains stable, we will proceed with heart catheterization on 07/08/2020. Plan Detail Other Orders Orders: Basic Metabolic Profile (BMP) Today I50.9 Other Medications New: aspirin 81 mg PO DAILY 90 tabs 3RF clopidogrel (Plavix) 75 mg PO QDAY 90 tabs 3RF Additional Comments Thank you for allowing us to participate in the patients plan of care, if you have any questions please do not hesitate to call. This note was generated using a voice recognition system and there may be incorrect words, spelling or punctuation that were not noted when reviewing the office note prior to saving. Follow Up 5 Weeks (SALES REPRESENTATIVE PRINTING/PA) Coding Level of Care Code Off vis,est,level 4 Diagnoses Abnormal cardiovascular stress test R94.39 Paroxysmal atrial fibrillation I48.0 NSVT (nonsustained ventricular tachycardia) I47.2 Hypertension, unspecified type I10 ??Hypertension type: unspecified Mixed hyperlipidemia E78.2 Acute blood loss anemia D62 Coding Level of Care Code Off vis,est,level 4 Diagnoses Abnormal cardiovascular stress test R94.39 Paroxysmal atrial fibrillation I48.0 NSVT (nonsustained ventricular tachycardia) I47.2 Hypertension, unspecified type I10 ??Hypertension type: unspecified Mixed hyperlipidemia E78.2 Acute blood loss anemia D62 Supplemental Info Supplemental Information Echocardiogram: 08-23-2019 Interpretation Summary The estimated ejection fraction is 65 %. Stage 2 diastolic dysfunction. Mildly dilated right ventricle. Trivial tricuspid valve insufficiency. Right ventricular systolic pressure estimated to be 22 mmHg. The inferior vena cava is dilated No collapse of the inferior vena cava. Compared to echo report dated 05/22/2015, no appreciable changes noted. Stress Test Report Date: 06-03-2020 Procedure: Pharmacologic stress nuclear imaging study Indications: Atrial fibrillation; nonsustained ventricular tachycardia; CHF Consent: Per the patient Procedure: The patient underwent pharmacologic (Regadenoson 0.4mg ) evaluation with a peak heart rate of 82 beats per minute (55%predicted maximal heart rate) and a peak blood pressure of 120/80 mmHg. The baseline ECG demonstrated sinus rhythm; nonspecific ST/T wave abnormality. The peak pharmacologic ECG demonstrated no obvious ECG changes. There were no cardiac dysrhythmias pretest, during pharmacologic infusion, or recovery. There was no complaint of chest discomfort during pharmacologic infusion or recovery. The examination was discontinued secondary to completion of protocol. Impression: 1. Pharmacologic (Regadenoson) evaluation 2. Peak pharmacologic ECG with no obvious ECG changes. 3. There were no cardiac dysrhythmias pretest, during pharmacologic infusion, or recovery. 4. Nuclear images pending Myocardial perfusion imaging study: Technique: The patient was injected with 13.6 millicuries of technetium 99m Cardiolite and subsequently rest SPECT Cardiolite nuclear imaging was obtained in the horizontal long, vertical long, and short axis views. The patient underwent pharmacologic (Regadenoson) evaluation with a peak heart rate of 82 beats per minute (55% percent predicted maximal heart rate) and a peak blood pressure of 120/80 mmHg. The patient was injected with 43.8 millicuries of technetium 99m Cardiolite and subsequently stress SPECT Cardiolite nuclear imaging was obtained in the horizontal long, vertical long, and short axis views. A gated Cardiolite study at peak stress was obtained. Interpretation: Rest and stress SPECT Cardiolite nuclear imaging status post realignment, normalization, and attenuation correction demonstrate status post stress a small area of diminished tracer uptake in the mid anterior segments. There is end systolic thickening and brightening. The gated Cardiolite study demonstrates myocardial thickening and inward wall motion. The reported LVEF is 61%. Impression: 1. Rest and stress SPECT Cardiolite nuclear imaging demonstrate status post stress a small area of diminished tracer uptake in the mid anterior segments concerning for an area of stress-induced myocardial ischemia. 2. The gated Cardiolite study reports an LVEF of 61%. Stress echocardiogram: 08-25-2019 Interpretation Summary The estimated ejection fraction is 65 %. Normal, adequate, dobutamine echocardiogram. Negative for ischemia by EKG and echocardiographic criteria. No anginal symptoms noted. Rare PVC noted. Patient at baseline inferior lateral downward sloping ST depression with T wave inversion which did not appreciably change at peak exercise. Final LVEF is 75%. Decrease sensitivity due to poor echo windows requiring Definity agent. Patient tolerated the procedure well. The study was technically difficult. The study was technically limited. A transesophageal echocardiogram is recommended. Diagnostics Electrocardiogram 06/26/20 Echocardiogram 05/23/20 Stress Test Nuclear Medicine 06/03/20 Stress Test 06/03/20 I have examined the patient the following changes are noted: The patient did undergo further evaluation with a transthoracic echocardiogram on 05-23-2020: The results are noted below: Interpretation Summary The study was technically difficult. Contrast injection was performed. Based upon the 2D echocardiographic contrast enhanced images obtained there appears to be grossly normal left ventricular size, wall motion, and systolic function. The estimated ejection fraction is 55 %. No evidence for diastolic dysfunction. The patient underwent evaluation with a Holter monitor on 05-22-2020: The results are noted below: Sinus rhythm/sinus arrhythmia PACs with one atrial run consisting of 3 beats and a maximal heart rate of 156 bpm with 2 atrial couplets and no atrial fibrillation reported PVCs with one ventricular run consisting of 10 beats with a maximal rate of 162 bpm and 3 ventricular couplets Based upon the patient's overall history and objective findings further evaluation of his coronary anatomy was recommended with diagnostic cardiac catheterization. The procedure and risk were discussed with the patient. He was agreeable to this approach. The surgeon/proceduralist and patient have discussed in detail the risk of exposure to and/or potential harm posed by the COVID-19 virus with having a surgery/procedure at this time versus the risk of delaying the surgery/procedure. It is not possible to know either the risk of delaying the surgery or procedure or chance of getting an infection with perfect accuracy, but a joint decision was made between the patient and the surgeon/proceduralist to proceed at this time with the scheduled surgery/procedure as indicated on the consent form.
--- NOTE | 2020-07-08 12:03 | PRO.PCM_ITS ---
Procedure Report Date of Procedure: 07/08/20
--- NOTE | 2020-07-08 12:03 | PCM.OP.PRO ---
Procedure Report Date of Procedure: 07/08/20
--- NOTE | 2020-07-08 13:35 | CL.PCI_ITS ---
PCI Cardiac Cath Report PCI Report: Procedure performed; 1. IFR of proximal LAD 2. IVUS of proximal LAD Preprocedure diagnosis; 74-year-old patient, with history of paroxysmal atrial fibrillation This has been the during the time of COVID-19 diagnosis and also patient had GI bleed requiring 6 units of blood transfusion. Seen and evaluated at the [facility] and had prior cardiac catheterization 2017 at [facility] which showed no significant obstructive coronary artery disease Symptoms of intermittent chest pain. This has been since February 2020 on activities Also patient had history of hypertension, mixed hyperlipidemia And evaluation by echocardiogram ejection fraction within normal Nuclear stress test revealed EF 61% A small area of diminished tracer uptake at the mid anterior segment Patient also had a history of nonsustained ventricular tachycardia. Based on the clinical presentation and abnormal nuclear stress test Patient underwent cardiac angiogram; By his primary applications support analyst Dr. Alex Reviewed the coronary angiography and discussed need of further evaluation by IFR and IVUS to the proximal LAD. Intermediate lesion with haziness and calcification of the proximal LAD, around 60-70%, followed by area of aneurysmal dilatation. Procedure in detail; Consent risk. Procedure explained detail patient like to proceed informed consent obtained Access from the right radial artery approach. Interventional equipment and plan; Patient was already on treatment with Plavix and aspirin and was given 5000 unit of heparin in the Automatic Drilling Machine Operator. Interventional equipment; 1. Guide catheter 6 Belarusian 3.5 EBU 2. IFR wire 3. 0.014 extra floppy 180 cm run-through wire. 4 IVUS catheter 5. Use of intracoronary nitroglycerin prior to IVUS catheter placement We will proceed with 6 [place]ian EBU guide engaged the left main without difficulty Then we use IFR wire and measurement was made x3 [0.88?0.89] borderline IFR. We will proceed with intravascular ultrasound/IVUS of the proximal LAD, clearly demonstrated calcified proximal LAD, circumferential. Following this cath removed under fluoroscopic guidance. Hemostasis maintained with use of TR band to the right radial artery arteriotomy site Recommendation; Medical treatment, will need arrangement for atherectomy to proximal LAD with PCI and stenting if failed medical treatment. Cachorro Martinez MD,FACC,[facility]
--- NOTE | 2020-07-14 08:22 | CL.D_ITS ---
Patient Name: KINGS MARCANO Study Date: 07/08/2020 Performing: Ivan Alex MD Ht: 67 inches 170 cm : 1945 Wt: 207.5 lbs 94 kg Age: 74 Gender: male BSA: 2.05 PROCEDURE(S) PERFORMED [id number]/LV [id number], CORONARY OR GRAFT, INITIAL VESSEL [id number], CORONARY OR GRAFT, INITIAL VESSEL CLINICAL PROFILE AND INDICATIONS Indications: Cardiac Arrythmia: VT, Suspected CAD Heart Failure: None Stress/Imaging Date: 06/03/2020tress Test with SPECT MPI: Positive Intermediate Risk Angina Classification Anginal Classification w/in 2 Weeks: CCS III CAD Presentations: Other: chest pain; palpitations CONCLUSIONS Elevated Left Ventricular End Diastolic Pressure Normal LV size, wall motion,and systolic function LVEF: by LV gram 60 % [place] Multivessel CAD Fluoroscopic findings c/w pericardial thickening / calcification RECOMMENDATIONS Risk factor modification Medical therapy Referred for FFR of the LAD DESCRIPTION OF PROCEDURE The patient arrived to the procedure lab. The risks and benefits of the procedure as well as a full d escription of our services here and current unavailability of surgical backup were fully explained to the patient and/or their significant other prior to the catheterization. The Timeout was completed, verifying the correct patient and procedure. The patient's procedural site was prepped and draped in the usual fashion. Local anesthetic was given subcutaneously to right radial region with Lidocaine 2% . Using a modified Seldinger technique, arterial access was obtained via the right radial artery, a 6 Fr sheath was inserted. Left Coronary Artery selective angiography was performed in multiple views u sing a 5 Fr. 4.0 [place] catheter. Right Coronary Artery selective angiography was then performed in mu ltiple views using a 5 Fr. 4.0 [place] catheter. Left Ventriculography was performed in [place] projection using a 5 Fr. Pigtail catheter. LV to AO pullback pressures were then recorded.The arterial sheath was pulled and a TR Band was applied for hemostasis w/ 14ml air CORONARY ANGIOGRAPHY DOMINANCE: Right Dominant LEFT HEART ASSESSMENT Left Ventricular Ejection Fraction: by LV Gram 60 % Normal LV wall motion Elevated Left Ventricular End Diastolic Pressure LVEDP: 25 mmHg Pericardial Disease: Fluoroscopic findings c/w pericardial thickening / calcification LEFT MAIN: Angiographically normal LEFT ANTERIOR DESCENDING ARTERY: Mild luminal irregularities PROX LAD: Mild calcification, hazy: eccentric: 50 - 75 % Stenosis MID LAD: Mild calcification, Mild luminal irregularities DISTAL LAD: Termial apical segment: small vessel: bifurcation: 95 % Stenosis CIRCUMFLEX ARTERY: Mild luminal irregularities OSTIAL CIRC: smooth: 10 - 25 % Stenosis RIGHT CORONARY ARTERY: Angiographically normal AORTIC ROOT: Angiographically normal COMPLICATIONS No Complications PROCEDURE MEDICATIONS Versed 1 mg IV Fentanyl 50 mcg IV Oxygen: 2 L/min via nasal cannula Heparin diluted in 23cc Heparinized saline. Patient given 10cc IA of this solution. 07/08/2020 10:29: 14 Heparin 6000 unit(s) IV 07/08/2020 11:15:57 Nitro 200 mcg IC 07/08/2020 11:42:56 IV Bolus: .9 NaCl 500 ml total 07/08/2020 11:57:48 SUMMARY OF HEMODYNAMIC DATA Time AIR REST ECG 08:29:36 AO 134/69 (92) SA 10:33:29 LV 145/3, 20 10:56:09 LV 135/1, 25 10:56:16 LV 155/4, 29 10:57:34 LVp 150/2, 21 10:57:38 AOp 156/81 (114) 10:57:43 Signed By Ivan Alex MD On 07/14/2020 08:21:43 Ivan Alex MD
== END 2020-07-08 13:45 | disposition home or self-care (01) ==
LOC: CLSP 07:59
PROVIDERS: Nurse Practitioner Family; Referring Provider Internal Medicine Cardiovascular Disease; Visit Provider Internal Medicine Cardiovascular Disease
DX: I48.0 Paroxysmal atrial fibrillation (principal); E11.22 Type 2 diabetes mellitus with diabetic chronic kidney disease; I13.0 Hypertensive heart and chronic kidney disease with heart failure and stage 1 through stage 4 chronic kidney disease, or unspecified chronic kidney disease; N18.9 Chronic kidney disease, unspecified; I50.9 Heart failure, unspecified; D62 Acute posthemorrhagic anemia; E78.2 Mixed hyperlipidemia; I25.10 Atherosclerotic heart disease of native coronary artery without angina pectoris; I47.2 Ventricular tachycardia; K21.9 Gastro-esophageal reflux disease without esophagitis; Z86.16 Personal history of COVID-19; Z87.19 Personal history of other diseases of the digestive system; Z79.82 Long term (current) use of aspirin; Z79.84 Long term (current) use of oral hypoglycemic drugs; Z79.02 Long term (current) use of antithrombotics/antiplatelets; Z79.899 Other long term (current) drug therapy
CPT/HCPCS: 36415; 80048; 85025; 85610; 85730; 92978; 93458; 93571; 99152; 99153; J7040; Q9967; C1753; C1769; C1887; C1894

== ENCOUNTER → 2020-10-20 15:26 | Outpatient (CLI) | payer MEDICARE, SELFPAY ==
[2020-10-20 14:07] VITALS: BMI 32.4
[2020-10-20 16:45] LABS: PSA,Total - Annual Screen 0.42 ng/mL (0.00-4.00)
== END ==
PROVIDERS: PCP Internal Medicine; Referring Provider Internal Medicine; Visit Provider Internal Medicine
DX: Z12.5 Encounter for screening for malignant neoplasm of prostate (principal)
CPT/HCPCS: 36415; 84153; G0103

== ENCOUNTER → 2021-01-13 09:50 | Outpatient (CLI) | payer MEDICARE, SELFPAY ==
[2021-01-13 11:22] LABS: AST(SGOT) 14 U/L (15-37); Alanine Aminotransfer ALT/SGPT 16 U/L (16-61); Albumin, Serum 3.4 g/dL (3.2-5.0); Alkaline Phosphatase 178 U/L (45-117); Bilirubin, Direct 0.17 mg/dL (0.00-0.30); Cholesterol 116 mg/dL (200); Globulin 4.3 g/dL (2.2-4.2); High Density Lipoprotein 46 mg/dL; Protein, Total 7.7 g/dL (6.4-8.2); Triglycerides 81 mg/dL; Very Low Density Lipoprotein 16 mg/dL (5-40)
== END ==
PROVIDERS: PCP Internal Medicine; Referring Provider Nurse Practitioner Gerontology; Visit Provider Nurse Practitioner Gerontology
DX: E78.5 Hyperlipidemia, unspecified (principal)
CPT/HCPCS: 36415; 80061; 80076

== ENCOUNTER 2021-04-20 11:48 | Outpatient (CLI) | payer MEDICARE, SELFPAY ==
--- NOTE | 2021-04-20 12:15 | RAD_ITS ---
STUDY: X-RAY CHEST REASON FOR EXAM: Male, 75 years old. diminished bs right post, hx ple eff right 09/14 TECHNIQUE: PA and lateral views of the chest. COMPARISON: 03/08/2020 FINDINGS: The lungs are clear and expanded. Moderate pleural effusion and right lower lobe atelectasis. Normal size heart. Calcification of the pericardium. Normal mediastinum and ruthy. Normal visualized pulmonary arteries. Normal visualized aortic arch and descending thoracic aorta. Normal visualized thoracic spine. Normal visualized ribs, clavicles, and shoulders. There is no demonstrated abnormality of the visualized soft tissue structures of the upper abdomen. RAD/Chest PA and Lateral IMPRESSION: Moderate right pleural effusion with right lower lobe atelectasis. Electronically Signed: Kolton Bear MD at 16:59 EST Tel , Service support ,
[2021-04-20 15:14] LABS: Absolute Lymphocyte Count 1.06 X10^3/uL (0.83-4.51); Basophil% 1.2 % (0-1); Eosinophil# 0.48 X10^3/uL; Eosinophils% 5.6 % (0-5); Hematocrit 40.5 % (40-54); Hemoglobin 13.2 g/dL (13.0-16.5); Lymphocyte # 1.06 X10^3/ul (0.83-4.51); Lymphocyte % 12.3 % (19-41); Mean Corp Hgb Conc 32.6 g/dL (32-36); Mean Corpuscular Hgb 27.7 pg (27.0-32.0); Mean Corpuscular Volume 85.1 fL (80-94); Mean Platelet Vol. 11.1 fl (6.2-12.0); Monocyte% 10.5 % (0-10); NRBC Flagged by Analyzer 0 % (0-5); Neutrophil # 6.01 X10^3/uL (2.7-7.7); Neutrophil % 69.9 % (47-70); Platelet Count 281 K/mm3 (150-450); RBC Distribution Width CV 14.6 % (11.6-14.6); RBC Distribution Width SD 45.2 fl (35.1-43.9); Red Blood Count 4.76 M/mm3 (4.6-6.2); White Blood Count 8.6 K/mm3 (4.4-11.0)
[2021-04-20 15:45] LABS: AST(SGOT) 12 U/L (15-37); Alanine Aminotransfer ALT/SGPT 14 U/L (16-61); Albumin, Serum 3.7 g/dL (3.2-5.0); Alkaline Phosphatase 153 U/L (45-117); Anion Gap 5 (5-15); BUN 25 mg/dL (7-18); Calcium,Total 9.2 mg/dL (8.5-10.1); Chloride 109 mmol/L (98-107); Creatinine, Serum 1.78 mg/dL (0.70-1.30); EST Glomerular Filtration Rate 40 mL/min (>60); Est Glom Filt Rate - Afr Amer 48 mL/min (>60); Globulin 3.8 g/dL (2.2-4.2); Glucose 124 mg/dL (74-106); Potassium 4.4 mmol/L (3.5-5.1); Protein, Total 7.5 g/dL (6.4-8.2); Sodium Level 139 mmol/L (136-145)
== END 2021-04-20 23:59 | disposition short-term general hospital (02) ==
PROVIDERS: PCP Internal Medicine; Referring Provider Internal Medicine; Visit Provider Internal Medicine
DX: J90 Pleural effusion, not elsewhere classified (principal); E11.22 Type 2 diabetes mellitus with diabetic chronic kidney disease; N18.30 Chronic kidney disease, stage 3 unspecified; Z86.2 Personal history of diseases of the blood and blood-forming organs and certain disorders involving the immune mechanism
CPT/HCPCS: 36415; 71046; 80053; 85025

== ENCOUNTER 2021-06-08 12:18 | Outpatient (CLI) | payer MEDICARE, SELFPAY ==
[2021-06-08 14:04] LABS: AST(SGOT) 15 U/L (15-37); Alanine Aminotransfer ALT/SGPT 16 U/L (16-61); Albumin, Serum 3.7 g/dL (3.2-5.0); Alkaline Phosphatase 160 U/L (45-117); Bilirubin, Direct 0.16 mg/dL (0.00-0.30); Cholesterol 129 mg/dL (200); Globulin 3.9 g/dL (2.2-4.2); High Density Lipoprotein 43 mg/dL; Protein, Total 7.6 g/dL (6.4-8.2); Triglycerides 121 mg/dL; Very Low Density Lipoprotein 24 mg/dL (5-40)
== END 2021-06-08 23:59 | disposition home or self-care (01) ==
LOC: LAB 12:19
PROVIDERS: PCP Internal Medicine; Referring Provider Internal Medicine Cardiovascular Disease; Visit Provider Internal Medicine Cardiovascular Disease
DX: E78.00 Pure hypercholesterolemia, unspecified (principal)
CPT/HCPCS: 36415; 80061; 80076

== ENCOUNTER → 2021-10-23 | Outpatient (CLI) | payer MEDICARE, SELFPAY ==
[2021-10-23 10:19] LABS: Absolute Lymphocyte Count 1.04 X10^3/uL (0.83-4.51); Basophil% 1.1 % (0-1); Eosinophils% 6.8 % (0-5); Hematocrit 43.3 % (40-54); Hemoglobin 13.9 g/dL (13.0-16.5); Lymphocyte # 1.04 X10^3/ul (0.83-4.51); Lymphocyte % 11.8 % (19-41); Mean Corp Hgb Conc 32.1 g/dL (32-36); Mean Corpuscular Hgb 28.4 pg (27.0-32.0); Mean Corpuscular Volume 88.4 fL (80-94); Mean Platelet Vol. 11.3 fl (6.2-12.0); Monocyte# 1.05 X10^3/uL; Monocyte% 11.9 % (0-10); NRBC Flagged by Analyzer 0 % (0-5); Neutrophil # 5.99 X10^3/uL (2.7-7.7); Neutrophil % 67.9 % (47-70); Platelet Count 252 K/mm3 (150-450); RBC Distribution Width CV 14.9 % (11.6-14.6); RBC Distribution Width SD 48.6 fl (35.1-43.9); White Blood Count 8.8 K/mm3 (4.4-11.0)
[2021-10-23 10:46] LABS: Hemoglobin A1c 6.7 % (3.8-5.6)
[2021-10-23 10:59] LABS: ALB/GLOB Ratio 0.9 RATIO (0.9-2.4); AST(SGOT) 13 U/L (15-37); Alanine Aminotransfer ALT/SGPT 14 U/L (16-61); Albumin, Serum 3.3 g/dL (3.2-5.0); Alkaline Phosphatase 118 U/L (45-117); Anion Gap 5 (5-15); BUN 20 mg/dL (7-18); BUN/Creat Ratio 11.5 RATIO (10-20); Calcium,Total 8.9 mg/dL (8.5-10.1); Chloride 109 mmol/L (98-107); Cholesterol 109 mg/dL (200); Creatinine, Serum 1.74 mg/dL (0.70-1.30); EST Glomerular Filtration Rate 41 mL/min (>60); Est Glom Filt Rate - Afr Amer 49 mL/min (>60); Globulin 3.6 g/dL (2.2-4.2); Glucose 131 mg/dL (74-106); High Density Lipoprotein 44 mg/dL; PSA,Total - Annual Screen 0.71 ng/mL (0.00-4.00); Potassium 4.7 mmol/L (3.5-5.1); Protein, Total 6.9 g/dL (6.4-8.2); Sodium Level 141 mmol/L (136-145); Thyroid Stim Hormone (TSH) 4.33 uIU/mL (0.358-3.74); Triglycerides 92 mg/dL; Very Low Density Lipoprotein 18 mg/dL (5-40)
== END | disposition home or self-care (01) ==
LOC: LAB 08:54
PROVIDERS: PCP Internal Medicine; Visit Provider Internal Medicine
DX: I25.10 Atherosclerotic heart disease of native coronary artery without angina pectoris (principal); I13.0 Hypertensive heart and chronic kidney disease with heart failure and stage 1 through stage 4 chronic kidney disease, or unspecified chronic kidney disease; I50.9 Heart failure, unspecified; N18.30 Chronic kidney disease, stage 3 unspecified; K21.9 Gastro-esophageal reflux disease without esophagitis; H61.23 Impacted cerumen, bilateral; Z86.2 Personal history of diseases of the blood and blood-forming organs and certain disorders involving the immune mechanism; Z12.5 Encounter for screening for malignant neoplasm of prostate
CPT/HCPCS: 36415; 80053; 80061; 83036; 84153; 84443; 85025; G0103

== ENCOUNTER → 2021-10-27 | Outpatient (CLI) | payer MEDICARE, SELFPAY ==
[2021-10-27 10:42] LABS: Free T3 2.4 pg/mL (2.18-3.98); T4 Free Direct 1.01 ng/dL (0.76-1.46)
== END | disposition home or self-care (01) ==
LOC: LAB 09:33
PROVIDERS: PCP Internal Medicine; Referring Provider Internal Medicine; Visit Provider Internal Medicine
DX: I12.9 Hypertensive chronic kidney disease with stage 1 through stage 4 chronic kidney disease, or unspecified chronic kidney disease (principal); E11.22 Type 2 diabetes mellitus with diabetic chronic kidney disease; N18.30 Chronic kidney disease, stage 3 unspecified; Z86.2 Personal history of diseases of the blood and blood-forming organs and certain disorders involving the immune mechanism
CPT/HCPCS: 36415; 84439; 84481

== ENCOUNTER → 2022-01-20 | Outpatient (CLI) | payer MEDICARE, SELFPAY ==
[2022-01-20 12:44] LABS: Absolute Lymphocyte Count 1.31 X10^3/uL (0.83-4.51); Absolute Neutrophil Count 5.9 X10^3/uL (2.0-7.7); Basophil% 1.2 % (0-1); Eosinophil# 0.36 X10^3/uL; Eosinophils% 4.2 % (0-5); Hematocrit 45.3 % (40-54); Hemoglobin 14.3 g/dL (13.0-16.5); Lymphocyte # 1.31 X10^3/ul (0.83-4.51); Lymphocyte % 15.2 % (19-41); Mean Corp Hgb Conc 31.6 g/dL (32-36); Mean Corpuscular Hgb 28.2 pg (27.0-32.0); Mean Corpuscular Volume 89.3 fL (80-94); Mean Platelet Vol. 10.7 fl (6.2-12.0); Monocyte# 0.89 X10^3/uL; Monocyte% 10.3 % (0-10); NRBC Flagged by Analyzer 0 % (0-5); Neutrophil # 5.93 X10^3/uL (2.7-7.7); Neutrophil % 68.5 % (47-70); Platelet Count 323 K/mm3 (150-450); RBC Distribution Width CV 14.5 % (11.6-14.6); RBC Distribution Width SD 46.5 fl (35.1-43.9); Red Blood Count 5.07 M/mm3 (4.6-6.2); White Blood Count 8.6 K/mm3 (4.4-11.0)
[2022-01-20 13:18] LABS: ALB/GLOB Ratio 0.9 RATIO (0.9-2.4); AST(SGOT) 11 U/L (15-37); Alanine Aminotransfer ALT/SGPT 15 U/L (16-61); Albumin, Serum 3.4 g/dL (3.2-5.0); Alkaline Phosphatase 131 U/L (45-117); Anion Gap 4 (5-15); BUN 18 mg/dL (7-18); BUN/Creat Ratio 10.3 RATIO (10-20); Chloride 107 mmol/L (98-107); Creatinine, Serum 1.74 mg/dL (0.70-1.30); EST Glomerular Filtration Rate 41 mL/min (>60); Est Glom Filt Rate - Afr Amer 49 mL/min (>60); Free T3 2.5 pg/mL (2.18-3.98); Globulin 3.9 g/dL (2.2-4.2); Glucose 129 mg/dL (74-106); Potassium 4.7 mmol/L (3.5-5.1); Protein, Total 7.3 g/dL (6.4-8.2); Sodium Level 138 mmol/L (136-145); T4 Free Direct 1.06 ng/dL (0.76-1.46); Thyroid Stim Hormone (TSH) 3.03 uIU/mL (0.358-3.74)
[2022-01-20 13:28] LABS: Bilirubin, Direct 0.19 mg/dL (0.00-0.30); Cholesterol 137 mg/dL (200); High Density Lipoprotein 44 mg/dL; Triglycerides 132 mg/dL; Very Low Density Lipoprotein 26 mg/dL (5-40)
== END | disposition home or self-care (01) ==
LOC: LAB 12:09
PROVIDERS: Internal Medicine Cardiovascular Disease; PCP Internal Medicine; Visit Provider Physician Assistant Medical
DX: I12.9 Hypertensive chronic kidney disease with stage 1 through stage 4 chronic kidney disease, or unspecified chronic kidney disease (principal); E11.22 Type 2 diabetes mellitus with diabetic chronic kidney disease; N18.30 Chronic kidney disease, stage 3 unspecified; E78.00 Pure hypercholesterolemia, unspecified; R94.6 Abnormal results of thyroid function studies; Z86.2 Personal history of diseases of the blood and blood-forming organs and certain disorders involving the immune mechanism
CPT/HCPCS: 36415; 80053; 80061; 82248; 84439; 84443; 84481; 85025

== ENCOUNTER 2022-08-26 05:28 | Emergency (ER) | payer MEDICARE, SELFPAY ==
[2022-08-26] VITALS (7 sets, daily range): BP systolic 123–177; BP diastolic 62–98; PULSE 64–73; RESP 12–23; TEMP 35.8; O2SAT 95–97; BMI 33.3
--- NOTE | 2022-08-26 05:40 | RAD_ITS ---
EXAM: XR CHEST, 1 VIEW CLINICAL INDICATION: chest pain TECHNIQUE: Frontal view of the chest. COMPARISON: 04/20/2021. FINDINGS: LUNGS AND PLEURAL SPACES: Mild interstitial prominence bilaterally unchanged. No pneumothorax. No effusion. No change chronic pleural and parenchymal disease right lower hemithorax. HEART: Unremarkable. Cardiac silhouette not enlarged. MEDIASTINUM: Central airways and mediastinal contour are unremarkable. BONES/JOINTS: Unremarkable. SOFT TISSUES: Unremarkable. RAD/Chest 1 View (Portable) IMPRESSION: 1. No change chronic pleural and parenchymal disease right lower hemithorax. 2. Mild interstitial prominence bilaterally unchanged. Electronically Signed: Danilo Rivers MD at 6:14 EDT ,
--- NOTE | 2022-08-26 05:41 | ED.VIS.CHEST ---
HPI History of Present Illness Chief Complaint: Chest Pain Narrative Narrative: 77-year-old male presents with intermittent chest pain and shortness of breath over the last 3 days. He has past medical history of hypertension, hyperlipidemia, coronary artery disease, atrial fibrillation, and diabetes. He states that at his last catheterization a few years ago, he did not receive stents as he decided to medically treat his coronary artery disease. 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 He states he gets shortness of breath with exertion. He is wearing a 30-day event monitor because he told the JANICE that his heart flops around at times his chest pain has been intermittent and can last minutes. He states it comes and goes. He does take baby aspirin on a daily basis. He presents because of his shortness of breath, dyspnea on exertion, and intermittent chest pain. [facility] Medical History Atherosclerotic heart disease of [place] coronary artery without angina pectoris Cerumen impaction Chest tightness CHF (congestive heart failure) CKD (chronic kidney disease) stage 3, GFR 30-59 ml/min COVID-19 Diabetes mellitus, type II Essential hypertension Family history of cardiovascular disease Gastroesophageal reflux disease Hyperlipidemia Mixed hyperlipidemia Nausea and vomiting in adult NSVT (nonsustained ventricular tachycardia) Paroxysmal atrial fibrillation Pleural effusion Sinus tachycardia Snoring SOB (shortness of breath) TMJ (temporomandibular joint syndrome) TMJ arthralgia Home Medications aspirin 81 mg tablet,delayed release 81 mg PO DAILY #90 tabs 06/26/20 [Rx Last Taken 07/08/20] isosorbide mononitrate 30 mg tablet,extended release 24 hr 30 mg PO DAILY #90 tabs 03/23/22 [Rx Last Taken Unknown] metoprolol succinate 50 mg tablet,extended release 24 hr 50 mg PO DAILY #90 tabs 03/23/22 [Rx Last Taken Unknown] metformin 500 mg tablet 500 mg PO BID DM #180 tabs 04/14/22 [Rx Last Taken Unknown] simvastatin 20 mg tablet 20 mg PO QHS CHOLESTEROL #90 tabs 04/14/22 [Rx Last Taken Unknown] cimetidine 400 mg tablet 400 mg PO BID GERD #180 tabs 06/03/22 [Rx Last Taken Unknown] linagliptin 5 mg tablet 5 mg PO DAILY DM #90 tabs 07/12/22 [Rx Last Taken Unknown] Allergy/AdvReac Type Severity Reaction Status Date / Time levofloxacin [From Levaquin] AdvReac Severe Nausea/Vom/ Verified 07/27/22 11:06 Diarrhea verapamil AdvReac Severe chest pain Verified 07/27/22 11:06 Family History Father Myocardial infarction CVA (cerebral vascular accident) Mother Diabetes Other Cancer Heart disease Surgical History History of hernia repair History of left heart catheterization (LHC) (~07/08/20) Social History Smoking Status: Never smoker alcohol intake: never substance use type: does not use caffeine: No ROS ROS ED ROS Narrative Constitutional: No fever, no chills. HEENT: No sore throat. No neck pain. No loss of vision. No rhinorrhea. Cardiovascular: Intermittent chest pain. No palpitations. No pedal edema. Respiratory: No cough, positive dyspnea on exertion/shortness of breath. Abdominal: No abdominal pain. No nausea. No vomiting. Genitourinary: No dysuria. No hematuria. Musculoskeletal: No myalgias. No arthralgias. Neurologic: No headaches. No dizziness. No lightheadedness. Skin: No rash. No change in color. Psychiatric: No depression. No anxiety. EXAM Physical Exam Narrative Exam Narrative: Afebrile. Vital signs noted. HEENT: Normocephalic. Atraumatic. PERRL, EOMI. Neck soft and supple. No point tenderness or step off. Cardiovascular: Regular rate and rhythm. No murmurs, rubs, or gallops appreciated. Respiratory: No tachypnea. Lungs clear to auscultation bilaterally. Gastrointestinal: Abdomen soft, nontender, with normoactive bowel sounds. No rebound or guarding. Neurological: Awake. Alert. Nonfocal, nonlateralizing. Skin: No rash. Normal color. No pallor. Musculoskeletal: No pedal edema. Full range of motion extremities. Const Vital Signs: 08/26/22 05:29 08/26/22 05:34 08/26/22 05:40 Temperature 96.4 F L Temperature Source Temporal Pulse Rate 73 Respiratory Rate 23 H Respiratory Effort Short of Breath Blood Pressure 177/98 H Blood Pressure Mean 124 Pulse Ox 95 96 Oxygen Delivery Method Room Air Room Air 08/26/22 06:55 Temperature Temperature Source Pulse Rate 65 Respiratory Rate 19 H Respiratory Effort Blood Pressure 152/82 H Blood Pressure Mean 105 Pulse Ox 97 Oxygen Delivery Method Room Air Heart Score History: Moderately Suspicious ECG: Normal Age: >/= 65 years Risk Factors: >/= 3 Risk Factors or History of CAD Score: 5 MDM MDM MDM Narrative Medical decision making narrative: Concern is for acute coronary syndrome/STEMI versus non-STEMI, and congestive heart failure. Chest pain work-up was pursued. His daily aspirin/baby aspirin was supplemented. I reviewed his prior records and he did have LAD lesions that were 50 to 70%. EKG was obtained and interpreted by myself as sinus rhythm with sinus arrhythmia at 73 bpm without ectopy. He does have T wave inversion and mild ST depression mainly in V4 and V5, which is more pronounced than previous EKG dated March 08, 2020. I will obtain basic laboratory work including troponin and 2-hour troponin, along with BNP. Chest x-ray will also be obtained to look for CHF or pneumonia as a cause of his shortness of breath. He and his states that he did have history of a pleural effusion in the past. Based on his cardiac risk factors and heart score, I do feel that he will most likely require observation. I did review his catheterization lab report from 2020, and there are mild luminal irregularities in the left anterior descending artery. There is mild calcification and 50 to 75% stenosis of the proximal LAD with mild calcification and mild luminal irregularities of the mid LAD. Distal LAD showed terminal apical segment small vessel bifurcation 95% stenosis. The ostial circumflex showed 10 to 25% stenosis. Given his intermittent chest pain, he may have worsening disease. He was recommended for FFR. Discussed plan with the patient, he states that he had no further testing. I reviewed his laboratory work, his CBC shows normal white count 9.0, hemoglobin normal at 14.2, hematocrit 44.0, platelet count normal at 244, in review of his basic metabolic panel chloride is slightly elevated at 111 which I think is nonspecific, BUN of 24 with a creatinine at 1.88 but he does have a history of chronic kidney disease. Glucose is elevated appropriately at 152 but he has normal anion gap and I do not feel he is in diabetic ketoacidosis. I interpreted his 1 view chest x-ray independently and see chronic right pleural effusion with interstitial disease. I reviewed the radiology report which confirms my independent interpretation, no consolidation or pneumothorax. His initial high-sensitivity troponin is 7. His BNP is currently pending. At this point in time, I do feel that repeat troponin would be indicated. He has excessively high risk for worsening coronary artery disease and his last catheterization was approximately 2 years ago. Patient will be signed out to the [facility], Dr. Yousif to make final disposition which could possibly be observation for his chest pain with consult to cardiology to decide if you would require recatheterization because of his continuing chest pain that is intermittent. Currently, patient is in stable condition. History & Record Review Discussion w/independent historian: Patient Additional record(s) reviewed:: Prior outpatient record, Prior ED visit and Prior labs Lab Data Attestation: I reviewed the patient's lab results. Labs: Laboratory Results - last 24 hr 08/26/22 08/26/22 05:36 05:36 WBC 9.0 RBC 4.80 Hgb 14.2 Hct 44.0 MCV 91.7 MCH 29.6 MCHC 32.3 RDW Std Deviation 46.7 H RDW Coeff of Ena 13.8 Plt Count 244 MPV 11.3 Immature Gran % (Auto) 0.400 Neut % (Auto) 69.2 Lymph % (Auto) 12.8 L Archer % (Auto) 11.0 H Eos % (Auto) 5.6 H Baso % (Auto) 1.0 Absolute Neuts (auto) 6.2 Absolute Lymphs (auto) 1.15 Nucleated RBC % 0 Sodium 141 Potassium 4.6 Chloride 111 H Carbon Dioxide 23.0 Anion Gap 7 BUN 24 H Creatinine 1.88 H Estim Creat Clear Calc 35.60 Est GFR (MDRD) Af Amer 45 L Est GFR (MDRD) Non-Af 37 L BUN/Creatinine Ratio 12.8 Glucose 152 H Calcium 9.1 Troponin I High Sens 7 Radiography Diagnostic Testing: Clinical Impression(s) from Imaging Studies Chest X-Ray 08/26/22 05:40 IMPRESSION: 1. No change chronic pleural and parenchymal disease right lower hemithorax. 2. Mild interstitial prominence bilaterally unchanged. Electronically Signed: Danilo Rivers MD at 6:14 EDT , Discharge Plan Triage Chief Complaint: Chest Pain ED Provider: Sim Su Dx/Rx/DC Orders Clinical Impression: Chest pain, Essential hypertension, Hyperlipidemia, SOB (shortness of breath) Prescriptions: No Action aspirin 81 mg tablet,delayed release (DR/EC) 81 mg PO DAILY Qty: 90 3RF metoprolol succinate 50 mg tablet extended release 24 hr 50 mg PO DAILY Qty: 90 3RF isosorbide mononitrate 30 mg tablet extended release 24 hr 30 mg PO DAILY Qty: 90 3RF metformin 500 mg tablet 500 mg PO BID Qty: 180 3RF simvastatin 20 mg tablet 20 mg PO QHS Qty: 90 3RF cimetidine 400 mg tablet 400 mg PO BID Qty: 180 3RF linagliptin 5 mg tablet 5 mg PO DAILY Qty: 90 3RF Primary Care Provider: Jovita Youngblood Referrals: Jovita Youngblood MD [Primary Care Provider] -
[2022-08-26] MEDS: Aspirin 81 MG TAB.CHEW 324 MG PO (05:58)
[2022-08-26 06:03] LABS: Absolute Lymphocyte Count 1.15 X10^3/uL (0.83-4.51); Absolute Neutrophil Count 6.2 X10^3/uL (2.0-7.7); Basophil# 0.09 X10^3/uL; Eosinophils% 5.6 % (0-5); Hemoglobin 14.2 g/dL (13.0-16.5); Lymphocyte # 1.15 X10^3/ul (0.83-4.51); Lymphocyte % 12.8 % (19-41); Mean Corp Hgb Conc 32.3 g/dL (32-36); Mean Corpuscular Hgb 29.6 pg (27.0-32.0); Mean Corpuscular Volume 91.7 fL (80-94); Mean Platelet Vol. 11.3 fl (6.2-12.0); Monocyte# 0.99 X10^3/uL; NRBC Flagged by Analyzer 0 % (0-5); Neutrophil # 6.22 X10^3/uL (2.7-7.7); Neutrophil % 69.2 % (47-70); Platelet Count 244 K/mm3 (150-450); RBC Distribution Width CV 13.8 % (11.6-14.6); RBC Distribution Width SD 46.7 fl (35.1-43.9)
[2022-08-26 06:21] LABS: Anion Gap 7 (5-15); BUN 24 mg/dL (7-18); BUN/Creat Ratio 12.8 RATIO (10-20); Calcium,Total 9.1 mg/dL (8.5-10.1); Chloride 111 mmol/L (98-107); Creatinine, Serum 1.88 mg/dL (0.70-1.30); EST Glomerular Filtration Rate 37 mL/min (>60); Est Glom Filt Rate - Afr Amer 45 mL/min (>60); Glucose 152 mg/dL (74-106); Potassium 4.6 mmol/L (3.5-5.1); Sodium Level 141 mmol/L (136-145); Troponin-I HS (w/2H Reflex) 7 pg/mL (3.0-78.0)
[2022-08-26 07:56] LABS: Reflex Troponin-HS? (from REC) Y
[2022-08-26 08:12] LABS: Troponin-I HS 6 pg/mL (3.0-78.0)
[2022-08-26 08:30] LABS: BNP,B-Type NATRIURETIC PEPTIDE 175.8 pg/mL (0-100)
[2022-08-26] MEDS: amLODIPine 5 MG Tablet PO (10:23)
== END 2022-08-26 10:33 | disposition home or self-care (01) ==
PROVIDERS: Emergency Provider Emergency Medicine; PCP Internal Medicine; Visit Provider Emergency Medicine
DX: R07.9 Chest pain, unspecified (principal); I13.0 Hypertensive heart and chronic kidney disease with heart failure and stage 1 through stage 4 chronic kidney disease, or unspecified chronic kidney disease; I50.9 Heart failure, unspecified; E11.22 Type 2 diabetes mellitus with diabetic chronic kidney disease; I48.0 Paroxysmal atrial fibrillation; E78.2 Mixed hyperlipidemia; I25.10 Atherosclerotic heart disease of native coronary artery without angina pectoris; Z79.82 Long term (current) use of aspirin; Z79.84 Long term (current) use of oral hypoglycemic drugs; Z79.899 Other long term (current) drug therapy; Z86.16 Personal history of COVID-19
CPT/HCPCS: 71045; 80048; 83880; 84484; 85025; 93005; 99285; A4216

== ENCOUNTER → 2022-09-09 | Outpatient (CLI) | payer MEDICARE, SELFPAY ==
--- NOTE | 2022-09-09 14:06 | STRESSREP ---
Stress Test Report Pharmacologic myocardial perfusion stress test. 77-year-old male with a history of chest pain and coronary artery disease Resting EKG demonstrates sinus rhythm with a rate of 66 bpm. Resting blood pressure is 128/82 mmHg. 0.4 mg of regadenoson was infused per usual protocol followed by rapid intravenous saline flush injection. Continuous EKG monitoring was performed. The maximum heart rate was 89 bpm which was 61% of max impacted heart rate the maximum workload was 1 metabolic equivalent. At rest there were no ST or T wave changes noted to suggest ischemia and at peak infusion nonspecific ST changes were noted which did not meet the criteria for ischemia. No clinical angina is noted. The final blood pressure was 112/80 mmHg. Myocardial perfusion protocol. 15 mCi of technetium 99m sestamibi was injected at rest. 0.4 mg of regadenoson was infused per usual protocol. At peak infusion 44.5 mCi of technetium 99m sestamibi was injected stress images were obtained stress and rest images were reconstructed and compared in the short axis vertical long and horizontal long axis. Gated images were also obtained. Perfusion SPECT analysis: Review of the stress images demonstrate normal uptake of tracer noted in all areas of the myocardium. The resting images similar demonstrated normal uptake of tracer noted in all areas of the myocardium. No areas of reversibility are noted to suggest ischemia and no previous infarct is noted. Gated SPECT analysis: The gated ejection fraction is 60%. Conclusion: Normal pharmacologic myocardial perfusion stress test. Preserved ejection fraction.
== END | disposition home or self-care (01) ==
PROVIDERS: PCP Internal Medicine; Referring Provider Internal Medicine Cardiovascular Disease; Visit Provider Internal Medicine Cardiovascular Disease
DX: R07.9 Chest pain, unspecified (principal); I25.10 Atherosclerotic heart disease of native coronary artery without angina pectoris
CPT/HCPCS: 78452; 93017; A9500; A4216; J2785

== ENCOUNTER → 2022-10-06 | Outpatient (CLI) | payer MEDICARE, SELFPAY ==
[2022-10-06 08:13] LABS: Absolute Lymphocyte Count 1.28 X10^3/uL (0.83-4.51); Absolute Neutrophil Count 5.3 X10^3/uL (2.0-7.7); Basophil# 0.09 X10^3/uL; Basophil% 1.1 % (0-1); Eosinophil# 0.53 X10^3/uL; Eosinophils% 6.4 % (0-5); Hematocrit 44.6 % (40-54); Hemoglobin 14.9 g/dL (13.0-16.5); Lymphocyte # 1.28 X10^3/ul (0.83-4.51); Lymphocyte % 15.6 % (19-41); Mean Corp Hgb Conc 33.4 g/dL (32-36); Mean Corpuscular Hgb 30.1 pg (27.0-32.0); Mean Corpuscular Volume 90.1 fL (80-94); Mean Platelet Vol. 10.6 fl (6.2-12.0); Monocyte# 1.01 X10^3/uL; Monocyte% 12.3 % (0-10); NRBC Flagged by Analyzer 0 % (0-5); Neutrophil # 5.27 X10^3/uL (2.7-7.7); Platelet Count 222 K/mm3 (150-450); RBC Distribution Width CV 13.7 % (11.6-14.6); RBC Distribution Width SD 45.3 fl (35.1-43.9); Red Blood Count 4.95 M/mm3 (4.6-6.2); White Blood Count 8.2 K/mm3 (4.4-11.0)
[2022-10-06 09:10] LABS: Vitamin D,25 Hydroxy 51.6 ng/mL
[2022-10-06 09:17] LABS: ALB/GLOB Ratio 0.9 RATIO (0.9-2.4); AST(SGOT) 11 U/L (15-37); Alanine Aminotransfer ALT/SGPT 15 U/L (16-61); Albumin, Serum 3.4 g/dL (3.2-5.0); Alkaline Phosphatase 113 U/L (45-117); Anion Gap 3 (5-15); BUN 23 mg/dL (7-18); Chloride 110 mmol/L (98-107); Cholesterol 128 mg/dL (200); Creatinine, Serum 1.92 mg/dL (0.70-1.30); EST Glomerular Filtration Rate 36 mL/min (>60); Est Glom Filt Rate - Afr Amer 44 mL/min (>60); Globulin 3.9 g/dL (2.2-4.2); Glucose 137 mg/dL (74-106); High Density Lipoprotein 43 mg/dL; Potassium 4.6 mmol/L (3.5-5.1); Protein, Total 7.3 g/dL (6.4-8.2); Sodium Level 140 mmol/L (136-145); Thyroid Stim Hormone (TSH) 4.56 uIU/mL (0.358-3.74); Triglycerides 107 mg/dL; Very Low Density Lipoprotein 21 mg/dL (5-40)
[2022-10-06 09:42] LABS: Hemoglobin A1c 6.5 % (3.8-5.6)
== END | disposition home or self-care (01) ==
LOC: LAB 07:51
PROVIDERS: PCP Internal Medicine; Referring Provider Internal Medicine; Visit Provider Internal Medicine
DX: R94.6 Abnormal results of thyroid function studies (principal); I13.0 Hypertensive heart and chronic kidney disease with heart failure and stage 1 through stage 4 chronic kidney disease, or unspecified chronic kidney disease; I50.9 Heart failure, unspecified; E11.22 Type 2 diabetes mellitus with diabetic chronic kidney disease; N18.30 Chronic kidney disease, stage 3 unspecified; I25.10 Atherosclerotic heart disease of native coronary artery without angina pectoris
CPT/HCPCS: 36415; 80053; 80061; 82306; 83036; 84443; 85025

== ENCOUNTER → 2022-10-19 | Outpatient (CLI) | payer MEDICARE, SELFPAY ==
[2022-10-19 10:58] LABS: Free T3 2.4 pg/mL (2.18-3.98); T4 Free Direct 0.97 ng/dL (0.76-1.46)
== END | disposition home or self-care (01) ==
LOC: LAB 09:30
PROVIDERS: PCP Internal Medicine; Referring Provider Internal Medicine; Visit Provider Internal Medicine
DX: R94.6 Abnormal results of thyroid function studies (principal)
CPT/HCPCS: 36415; 84439; 84481

== ENCOUNTER → 2022-11-25 | Outpatient (CLI) | payer MEDICARE, SELFPAY ==
[2022-11-25 11:39] LABS: Anion Gap 6 (5-15); BUN 21 mg/dL (7-18); BUN/Creat Ratio 10.4 RATIO (10-20); Calcium,Total 9.1 mg/dL (8.5-10.1); Chloride 110 mmol/L (98-107); Creatinine, Serum 2.01 mg/dL (0.70-1.30); EST Glomerular Filtration Rate 35 mL/min (>60); Est Glom Filt Rate - Afr Amer 42 mL/min (>60); Glucose 158 mg/dL (74-106); Potassium 4.2 mmol/L (3.5-5.1); Sodium Level 138 mmol/L (136-145)
== END | disposition home or self-care (01) ==
LOC: LAB 10:53
PROVIDERS: PCP Internal Medicine; Referring Provider Internal Medicine; Visit Provider Internal Medicine
DX: I10 Essential (primary) hypertension (principal)
CPT/HCPCS: 36415; 80048

== ENCOUNTER → 2023-04-05 | Outpatient (CLI) | payer MEDICARE, SELFPAY ==
[2023-04-05 10:06] LABS: Anion Gap 2 (5-15); BUN 21 mg/dL (7-18); BUN/Creat Ratio 11.4 RATIO (10-20); Calcium,Total 9.3 mg/dL (8.5-10.1); Chloride 111 mmol/L (98-107); Creatinine, Serum 1.84 mg/dL (0.70-1.30); EST Glomerular Filtration Rate 38 mL/min (>60); Est Glom Filt Rate - Afr Amer 46 mL/min (>60); Glucose 150 mg/dL (74-106); Potassium 4.3 mmol/L (3.5-5.1); Sodium Level 140 mmol/L (136-145)
== END | disposition home or self-care (01) ==
LOC: LAB 09:02
PROVIDERS: PCP Internal Medicine; Referring Provider Internal Medicine; Visit Provider Internal Medicine
DX: E11.22 Type 2 diabetes mellitus with diabetic chronic kidney disease (principal); N18.30 Chronic kidney disease, stage 3 unspecified
CPT/HCPCS: 36415; 80048

== ENCOUNTER → 2023-09-27 | Outpatient (CLI) | payer MEDICARE, SELFPAY ==
[2023-09-27 09:29] LABS: Absolute Lymphocyte Count 1.11 X10^3/uL (0.83-4.51); Absolute Neutrophil Count 5.2 X10^3/uL (2.0-7.7); Basophil# 0.12 X10^3/uL; Basophil% 1.5 % (0-1); Eosinophil# 0.43 X10^3/uL; Eosinophils% 5.4 % (0-5); Hematocrit 49.1 % (40-54); Hemoglobin 15.8 g/dL (13.0-16.5); Lymphocyte # 1.11 X10^3/ul (0.83-4.51); Lymphocyte % 13.9 % (19-41); Mean Corp Hgb Conc 32.2 g/dL (32-36); Mean Corpuscular Hgb 29.7 pg (27.0-32.0); Mean Corpuscular Volume 92.3 fL (80-94); Mean Platelet Vol. 10.8 fl (6.2-12.0); Monocyte# 1.04 X10^3/uL; Monocyte% 13.1 % (0-10); NRBC Flagged by Analyzer 0 % (0-5); Neutrophil # 5.18 X10^3/uL (2.7-7.7); Neutrophil % 65.1 % (47-70); Platelet Count 226 K/mm3 (150-450); RBC Distribution Width CV 13.5 % (11.6-14.6); RBC Distribution Width SD 45.6 fl (35.1-43.9); Red Blood Count 5.32 M/mm3 (4.6-6.2)
[2023-09-27 09:48] LABS: Hemoglobin A1c 6.5 % (3.8-5.6)
[2023-09-27 10:04] LABS: ALB/GLOB Ratio 0.9 RATIO (0.9-2.4); AST(SGOT) 12 U/L (15-37); Alanine Aminotransfer ALT/SGPT 13 U/L (16-61); Albumin, Serum 3.6 g/dL (3.2-5.0); Alkaline Phosphatase 131 U/L (45-117); Anion Gap 7 (5-15); BUN 25 mg/dL (7-18); BUN/Creat Ratio 13.5 RATIO (10-20); Calcium,Total 9.3 mg/dL (8.5-10.1); Chloride 108 mmol/L (98-107); Cholesterol 123 mg/dL (200); Creatinine, Serum 1.85 mg/dL (0.70-1.30); EST Glomerular Filtration Rate 38 mL/min (>60); Est Glom Filt Rate - Afr Amer 46 mL/min (>60); Free T3 2.1 pg/mL (2.18-3.98); Globulin 4.1 g/dL (2.2-4.2); Glucose 132 mg/dL (74-106); High Density Lipoprotein 44 mg/dL; Magnesium 2.2 mg/dL (1.6-2.6); PSA,Total - Annual Screen 0.71 ng/mL (0.00-4.00); Potassium 4.4 mmol/L (3.5-5.1); Protein, Total 7.7 g/dL (6.4-8.2); Sodium Level 138 mmol/L (136-145); T4 Free Direct 0.94 ng/dL (0.76-1.46); Thyroid Stim Hormone (TSH) 3.85 uIU/mL (0.358-3.74); Triglycerides 96 mg/dL; Very Low Density Lipoprotein 19 mg/dL (5-40)
[2023-09-29 13:28] LABS: Vitamin D,25 Hydroxy 48.4 ng/mL
== END | disposition home or self-care (01) ==
LOC: LAB 08:57
PROVIDERS: PCP Internal Medicine; Referring Provider Internal Medicine; Visit Provider Internal Medicine
DX: H61.23 Impacted cerumen, bilateral (principal); I50.9 Heart failure, unspecified; I11.0 Hypertensive heart disease with heart failure; N18.30 Chronic kidney disease, stage 3 unspecified; E78.5 Hyperlipidemia, unspecified; I25.10 Atherosclerotic heart disease of native coronary artery without angina pectoris; K21.9 Gastro-esophageal reflux disease without esophagitis; R79.89 Other specified abnormal findings of blood chemistry; R73.9 Hyperglycemia, unspecified; Z13.220 Encounter for screening for lipoid disorders; Z12.5 Encounter for screening for malignant neoplasm of prostate; E55.9 Vitamin D deficiency, unspecified
CPT/HCPCS: 36415; 80053; 80061; 82306; 83036; 83735; 84153; 84439; 84443; 84481; 85025; G0103

== ENCOUNTER → 2024-02-28 | Outpatient (CLI) | payer MEDICARE, SELFPAY ==
[2024-02-28 10:29] LABS: Absolute Lymphocyte Count 1.06 X10^3/uL (0.83-4.51); Absolute Neutrophil Count 6.2 X10^3/uL (2.0-7.7); Basophil# 0.09 X10^3/uL; Eosinophil# 0.48 X10^3/uL; Eosinophils% 5.4 % (0-5); Hematocrit 48.7 % (40-54); Hemoglobin 15.9 g/dL (13.0-16.5); Lymphocyte # 1.06 X10^3/ul (0.83-4.51); Mean Corp Hgb Conc 32.6 g/dL (32-36); Mean Corpuscular Hgb 30.1 pg (27.0-32.0); Mean Corpuscular Volume 92.1 fL (80-94); Mean Platelet Vol. 11.5 fl (6.2-12.0); Monocyte# 0.93 X10^3/uL; Monocyte% 10.5 % (0-10); NRBC Flagged by Analyzer 0 % (0-5); Neutrophil # 6.23 X10^3/uL (2.7-7.7); Neutrophil % 70.3 % (47-70); Platelet Count 239 K/mm3 (150-450); RBC Distribution Width CV 13.2 % (11.6-14.6); RBC Distribution Width SD 44.4 fl (35.1-43.9); Red Blood Count 5.29 M/mm3 (4.6-6.2); White Blood Count 8.9 K/mm3 (4.4-11.0)
[2024-02-28 10:52] LABS: Vitamin D,25 Hydroxy 42.9 ng/mL
[2024-02-28 11:12] LABS: ALB/GLOB Ratio 0.9 RATIO (0.9-2.4); AST(SGOT) 11 U/L (15-37); Alanine Aminotransfer ALT/SGPT 15 U/L (16-61); Albumin, Serum 3.5 g/dL (3.2-5.0); Alkaline Phosphatase 122 U/L (45-117); Anion Gap 7 (5-15); BUN 21 mg/dL (7-18); BUN/Creat Ratio 12.9 RATIO (10-20); Calcium,Total 9.4 mg/dL (8.5-10.1); Chloride 106 mmol/L (98-107); Cholesterol 132 mg/dL (200); Creatinine, Serum 1.63 mg/dL (0.70-1.30); EST Glomerular Filtration Rate 44 mL/min (>60); Est Glom Filt Rate - Afr Amer 53 mL/min (>60); Free T3 2.4 pg/mL (2.18-3.98); Glucose 169 mg/dL (74-106); High Density Lipoprotein 42 mg/dL; Potassium 4.2 mmol/L (3.5-5.1); Protein, Total 7.5 g/dL (6.4-8.2); Sodium Level 139 mmol/L (136-145); T4 Free Direct 0.95 ng/dL (0.76-1.46); Triglycerides 114 mg/dL; Very Low Density Lipoprotein 23 mg/dL (5-40)
== END | disposition home or self-care (01) ==
LOC: LAB 09:44
PROVIDERS: PCP Internal Medicine; Referring Provider Internal Medicine; Visit Provider Internal Medicine
DX: I25.10 Atherosclerotic heart disease of native coronary artery without angina pectoris (principal); I50.9 Heart failure, unspecified; I13.0 Hypertensive heart and chronic kidney disease with heart failure and stage 1 through stage 4 chronic kidney disease, or unspecified chronic kidney disease; E11.22 Type 2 diabetes mellitus with diabetic chronic kidney disease; N18.30 Chronic kidney disease, stage 3 unspecified; R79.89 Other specified abnormal findings of blood chemistry; E78.5 Hyperlipidemia, unspecified; G47.33 Obstructive sleep apnea (adult) (pediatric); E55.9 Vitamin D deficiency, unspecified
CPT/HCPCS: 36415; 80053; 80061; 82306; 84439; 84443; 84481; 85025

== ENCOUNTER 2024-07-23 15:05 | Emergency (ER) | payer MEDICARE, SELFPAY ==
[2024-07-23] VITALS (11 sets, daily range): BP systolic 85–125; BP diastolic 60–92; PULSE 67–144; RESP 14–24; TEMP 35.8–36.6; O2SAT 96–97; BMI 32.6
--- NOTE | 2024-07-23 15:25 | EX.ED.DYSGE1 ---
HPI History of Present Illness Chief Complaint: Shortness of Breath Detail of Chief Complaint: Shortness of breath, dyspnea on exertion, exertional chest tightness, atria Informant: patient Limited: other (Office notes authored by Laith yung nurse practitioner was attached to patient paperwork.) Onset/Context/Timing Onset: Weeks (Patient report shortness of breath intermittent chest discomfort for proximately 3 weeks) Context: Sudden Onset Timing: Intermittent Quality: Tightness in the chest Location: Mid chest Current Severity: Mild Maximum Severity: Moderate Worsened by: Exertion Relieved by: Rest Associated Symptoms Associated Symptoms: dyspnea and nausea Narrative Narrative: Patient is a 78-year-old male. He has not had thing to eat since noon. He presents from cardiology office for atrial flutter. He has history of paroxysmal atrial fibrillation. He is on apixaban. He has not missed any doses. He has no allergy to egg products or soy products. Patient states that shortness of breath started approximately 3 weeks ago. He has also had intermittent chest discomfort described as tightness that lasts 3 to 30 minutes. It is precipitated by activity and exertion specifically. There is no radiation. There is associated dyspnea and nausea. He denies diaphoresis. He has known coronary artery disease. Last cardiac catheterization was performed June 2020. There was evidence of elevated left ventricular end-diastolic pressure, the left ventricle size, wall motion and systolic function were all normal. Estimated EF was 60%. He has multivessel coronary disease of [place] vessels. He was informed of results and plan was medical management unless he develops symptoms. The left main was angiographically normal. The LAD revealed mild luminal regularities proximal LAD revealed mild calcification and eccentric 50 to 75% stenosis. Mid LAD revealed minimal irregularities and distal LAD revealed 95% stenosis terminal apex segment. Circumflex artery revealed 10 to 25% stenosis and was smooth. Right coronary was considered angiographically normal. Patient had a IFR of the proximal LAD and IVUS of the proximal LAD. Stress echo was performed most recently September 09, 2022. There was normal pharmacologic myocardial perfusion with preserved EF. Patient was unaware that his heart rate is rapid. Patient denies upper respiratory tract symptoms. Patient presently has minimal tightness. He does report shortness of breath. He states he was more short of breath walking to the doctor's office prior to presentation. He denies cough, orthopnea or PND. He denies abdominal pain, black or maroon-colored stool. He denies hematuria. He does bruise easily. Prior similar symptoms: Yes Recent Illness/Hospitalization: No PFSH PFSH Medical History Essential hypertension History of anemia Atherosclerotic heart disease of [place] coronary artery without angina pectoris NSVT (nonsustained ventricular tachycardia) COVID-19 Mixed hyperlipidemia CKD (chronic kidney disease) stage 3, GFR 30-59 ml/min Paroxysmal atrial fibrillation Pleural effusion CHF (congestive heart failure) TMJ arthralgia Nausea and vomiting in adult Gastroesophageal reflux disease Chest tightness TMJ (temporomandibular joint syndrome) Snoring Hyperlipidemia Sinus tachycardia Diabetes mellitus, type II SOB (shortness of breath) Family history of cardiovascular disease Cerumen impaction Home Medications ?Medication ?Instructions ?Recorded ?Last Taken ?Type cimetidine 400 mg tablet 400 mg PO BID GERD #180 tabs 06/30/23 07/23/24 Rx amlodipine 5 mg tablet 5 mg PO DAILY #90 TABLETS 08/26/23 07/22/24 Rx apixaban 5 mg tablet (Eliquis) 5 mg PO BID #180 tabs 09/12/23 07/23/24 Rx empagliflozin 10 mg tablet 10 mg PO DAILY #90 tabs 09/19/23 07/22/24 Rx (Jardiance) levothyroxine 50 mcg tablet 50 mcg PO QDAY #90 tabs 03/12/24 07/23/24 Rx isosorbide mononitrate 30 mg 30 mg PO DAILY #90 tabs 03/15/24 07/23/24 Rx tablet,extended release 24 hr metoprolol succinate 50 mg 50 mg PO DAILY #90 TABLETS 04/10/24 07/23/24 Rx tablet,extended release 24 hr linagliptin 5 mg tablet 5 mg PO DAILY DM #90 tabs 06/21/24 07/23/24 Rx simvastatin 20 mg tablet 20 mg PO QHS CHOLESTEROL #90 tabs 06/21/24 07/22/24 Rx metoprolol succinate 25 mg 25 mg PO DAILY #30 tabs 07/23/24 Unknown Rx tablet,extended release 24 hr Allergy/AdvReac Type Severity Reaction Status Date / Time levofloxacin (From Levaquin) AdvReac Severe Nausea/Vom/ Verified 07/23/24 15:10 Diarrhea verapamil AdvReac Severe chest pain Verified 07/23/24 15:10 Family History Father Myocardial infarction CVA (cerebral vascular accident) Mother Diabetes Other Cancer Heart disease Surgical History History of left heart catheterization (LHC) (~07/08/20) History of hernia repair Social History Smoking Status: Never smoker alcohol intake: never substance use type: does not use caffeine: No ROS ROS ED Constitutional Constitutional ED: Denies chills, fever(s), subjective or sweats Eyes Eyes: Denies blurry vision or change in vision ENT ENT ED: Denies rhinorrhea or sore throat Cardiovascular Cardiovascular: Reports chest pain and other Details: Chest pain was described as tightness and not pain. ; Denies orthopnea, palpitations, paroxysmal nocturnal dyspnea or racing heartbeat Respiratory/Chest Respiratory/Chest: Reports dyspnea and dyspnea on exertion; Denies cough, orthopnea, paroxysmal nocturnal dyspnea or sputum Gastrointestinal Gastrointestinal: Denies abdominal pain, melena, nausea or vomiting Genitourinary Genitourinary ED: Denies hematuria Musculoskeletal Musculoskeletal: Denies arthralgias, back pain or myalgias Integumentary Denies rash Neurologic Neurologic: Reports weakness; Denies paresthesias Endocrine Endocrinology: Denies cold intolerance Hematologic/Lymphatic Hematologic/Lymphatic: Reports systems reviewed and no addt'l complaints, except as documented EXAM Physical Exam Const Vital Signs: 07/23/24 15:07 07/23/24 15:20 07/23/24 15:30 Temperature 96.4 F L Temperature Source Oral Pulse Rate 144 H Pulse Rate [1 (Initial Baseline)] Pulse Rate [2] Respiratory Rate 20 H Respiratory Rate [1 (Initial Baseline)] Respiratory Rate [2] Respiratory Effort Normal Non-Labored Respiratory Depth Normal Respiratory Pattern Normal Blood Pressure 118/92 H Blood Pressure [1 (Initial Baseline)] Blood Pressure [2] Blood Pressure Mean 100 Baseline BP Pulse Ox 96 Oxygen Delivery Method Room Air Oxygen Delivery Method [1 (Initial Baseline)] Oxygen Delivery Method [2] Oxygen Flow Rate (L/min) Oxygen Flow Rate (L/min) [1 (Initial Baseline)] Oxygen Flow Rate (L/min) [2] EtCo2 (Normal 35-45 , high quality CPR 10-20 & ROSC>/=40mmHg 26 EtCo2 (Normal 35-45 , high quality CPR 10-20 & ROSC>/=40mmHg [1 (Initial Baseline)] EtCo2 (Normal 35-45 , high quality CPR 10-20 & ROSC>/=40mmHg [2] 07/23/24 15:36 07/23/24 15:36 07/23/24 15:38 Temperature 98 F Temperature Source Pulse Rate 141 H 141 H Pulse Rate [1 (Initial Baseline)] 144 H Pulse Rate [2] 77 Respiratory Rate 22 H 19 H Respiratory Rate [1 (Initial Baseline)] 17 Respiratory Rate [2] 24 H Respiratory Effort Respiratory Depth Respiratory Pattern Blood Pressure 97/80 97/80 Blood Pressure [1 (Initial Baseline)] 88/65 L Blood Pressure [2] 88/65 L Blood Pressure Mean 85 Baseline BP 97/80 Pulse Ox 97 97 Oxygen Delivery Method Room Air Room Air Oxygen Delivery Method [1 (Initial Baseline)] Nasal Cannula Oxygen Delivery Method [2] Nasal Cannula Oxygen Flow Rate (L/min) Oxygen Flow Rate (L/min) [1 (Initial Baseline)] 2 Oxygen Flow Rate (L/min) [2] 6 EtCo2 (Normal 35-45 , high quality CPR 10-20 & ROSC>/=40mmHg 24 EtCo2 (Normal 35-45 , high quality CPR 10-20 & ROSC>/=40mmHg [1 (Initial Baseline)] 26 EtCo2 (Normal 35-45 , high quality CPR 10-20 & ROSC>/=40mmHg [2] 20 07/23/24 15:49 07/23/24 15:54 07/23/24 15:59 Temperature Temperature Source Pulse Rate 67 67 67 Pulse Rate [1 (Initial Baseline)] Pulse Rate [2] Respiratory Rate 20 H 19 H 21 H Respiratory Rate [1 (Initial Baseline)] Respiratory Rate [2] Respiratory Effort Respiratory Depth Respiratory Pattern Blood Pressure 89/60 L 85/62 L 99/72 Blood Pressure [1 (Initial Baseline)] Blood Pressure [2] Blood Pressure Mean Baseline BP Pulse Ox 96 97 96 Oxygen Delivery Method Nasal Cannula Nasal Cannula Nasal Cannula Oxygen Delivery Method [1 (Initial Baseline)] Oxygen Delivery Method [2] Oxygen Flow Rate (L/min) 6 6 2 Oxygen Flow Rate (L/min) [1 (Initial Baseline)] Oxygen Flow Rate (L/min) [2] EtCo2 (Normal 35-45 , high quality CPR 10-20 & ROSC>/=40mmHg 19 18 25 EtCo2 (Normal 35-45 , high quality CPR 10-20 & ROSC>/=40mmHg [1 (Initial Baseline)] EtCo2 (Normal 35-45 , high quality CPR 10-20 & ROSC>/=40mmHg [2] 07/23/24 16:06 07/23/24 17:00 07/23/24 18:00 Temperature Temperature Source Pulse Rate 68 69 73 Pulse Rate [1 (Initial Baseline)] Pulse Rate [2] Respiratory Rate 19 H 23 H 14 Respiratory Rate [1 (Initial Baseline)] Respiratory Rate [2] Respiratory Effort Respiratory Depth Respiratory Pattern Blood Pressure 107/75 125/88 H 118/79 Blood Pressure [1 (Initial Baseline)] Blood Pressure [2] Blood Pressure Mean 85 100 92 Baseline BP Pulse Ox 97 96 97 Oxygen Delivery Method Nasal Cannula Room Air Room Air Oxygen Delivery Method [1 (Initial Baseline)] Oxygen Delivery Method [2] Oxygen Flow Rate (L/min) 2 Oxygen Flow Rate (L/min) [1 (Initial Baseline)] Oxygen Flow Rate (L/min) [2] EtCo2 (Normal 35-45 , high quality CPR 10-20 & ROSC>/=40mmHg EtCo2 (Normal 35-45 , high quality CPR 10-20 & ROSC>/=40mmHg [1 (Initial Baseline)] EtCo2 (Normal 35-45 , high quality CPR 10-20 & ROSC>/=40mmHg [2] Positive well nourished and well developed Constitutional Narrative: BMI is 32.7. Vital signs unremarkable heart rate of 144. General Appearance ED: well developed; Negative for pallor HEENT Reports moist mucous membranes HEENT Narrative: Head is atraumatic normocephalic. Ears normal. Nares patent. Posterior pharynx is normal. Eyes PERRL and EOMs intact bilaterally General Eye ED: Negative for pale conjunctiva or scleral icterus Neck no lymphadenopathy, supple and no JVD Chest Wall inspection of chest normal and palpation of chest normal Resp normal respiratory effort and No clear to auscultation bilaterally Auscultation: rales left base Cardio regular rhythm, S1 normal heart sound, S2 normal heart sound and no murmurs Rate: tachycardic GI normal to inspection, nondistended, normoactive bowel sounds, non-tender, non-distended and no masses; Negative for hepatosplenomegaly Extremity normal to inspection Extremity Narrative: Approximately 4 mm of pitting edema. General Extremety ED: Yes edema General Extremity: edema Neuro oriented x3, CN's II-XII intact bilaterally and no sensory deficits noted Sensorium / Orientation: alert Psych mental status grossly normal Skin no rashes or lesions noted, no wounds and skin turgor normal General Skin Exam: Negative for jaundice or pallor MDM MDM MDM Narrative Medical decision making narrative: Patient with chest tightness and shortness of breath and atrial flutter. Since he has not having the eat in 3 and half hours has no contraindication to procedural sedation using propofol will have patient consented for procedure cessation using propofol and cardioversion. He states that they did mention cardioversion prior to sending him. He is uncertain if nurse practitioner room spoke to a strategic planning analyst. Lab Data Attestation: I reviewed the patient's lab results. Lab results narrative: CBC without differential is normal. Basic metabolic panel is marked for BUN/creatinine of 23 1.74 with understanding GFR 40. Glucose is elevated 194 with a normal CO2 anion gap. First troponin is normal. TSH is upper end of normal at 3.02. Review of prior records indicates patient has chronic kidney disease. His GFR varies between 35 and 44. Labs: Laboratory Results - last 24 hr 07/23/24 07/23/24 15:30 17:30 WBC 9.2 RBC 5.21 Hgb 15.7 Hct 47.4 MCV 91.0 MCH 30.1 MCHC 33.1 RDW Std Deviation 47.2 H RDW Coeff of Ena 14.2 Plt Count 274 MPV 10.8 Sodium 140 Potassium 4.9 Chloride 106 Carbon Dioxide 21.7 Anion Gap 13 BUN 23 H Creatinine 1.74 H Estim Creat Clear Calc 44.10 L Est GFR (MDRD) Non-Af 40 L BUN/Creatinine Ratio 12.9 Glucose 194 H Calcium 9.6 Troponin T High Sens 16 Troponin T Hi Sens 2 Hr 14 TSH 3.020 First troponin was 16. Second was 14 with a delta of -2. Patient's remained in a normal sinus rhythm. Plan is to increase the metoprolol. He is to contact Dr. Danilo Contreras's office for follow-up appointment next week or so. Radiography Chest X-Ray - ED: 1 View and Read by ED Physician (Chest there is unchanged from August 26, 2022. Patient has a effusion on the right that appears to be loculated. There are some increased interstitial markings right lower lobe again is unchanged. Hilum is unremarkable. [place] structures run no acute process.) Diagnostic Testing: Clinical Impression(s) from Imaging Studies Chest X-Ray 07/23/24 16:05 IMPRESSION: 1. Grossly similar chronic small/moderate RIGHT pleural effusion and/or pleural thickening with adjacent airspace disease compared with the earliest exam of 03/08/2020. 2. Additional description as above. Reading Location: [id number] Radiology report was reviewed at 1653. There is no discrepancy between my independent read and his. Procedures Procedural Sedation 1 (Initial Baseline): Consent Signed: Yes Any Problems With Anesthesia: No You/Your family experience fever (hyperthermia) w/anesthesia: No Dose: 80 (Milligrams) Route: IV Total Moderate Sedation Units: 3 (Minutes) Maliampati Score: Class II ASA Classification: E and III Comment:: Patient was hypotensive with a blood pressure 98/73 procedure. Monitor revealed a narrow complex tachycardia that was consistent with atrial flutter with a 2-1 block. This was considered emergent since patient was hypotensive experiencing chest tightness with shortness of breath. He was sedated using a total of 80 mg of propofol. He did not have deterioration of his blood pressure. He did not become hypoxic during the procedure. Patient was successfully cardioverted using 200 J. Post procedure EKG reveals a sinus rhythm rate 83. There is first-degree AV block with a AL interval of 220 ms. Cures duration 78 ms. QT duration is 410 ms. There is artifact that the computer is reading is not significant changes but there is also some nonspecific changes. Will compare to prior. There is no obvious evidence of non-STEMI or STEMI. Patient was reassessed at approximately 1550. He is still sedated from the propofol he received. Blood pressure is still low. He is perfusing well. There is no acrocyanosis or central cyanosis noted. Pulse ox is 97%. He is having no respiratory distress. Monitor reveals a narrow complex sinus rhythm rate of approximately 70. There is an occasional ectopic beat, VPB. Discharge Plan Triage Chief Complaint: Shortness of Breath ED Provider: Kevin Gomez Dx/Rx/DC Orders Clinical Impression: Atrial flutter, Atherosclerotic heart disease of [place] coronary artery without angina pectoris, Essential hypertension, Hyperlipidemia, Chest pain of unknown etiology, Acute dyspnea, Hypothyroidism, History of chronic CHF Instructions: ED Atrial Flutter Prescriptions: New metoprolol succinate 25 mg tablet extended release 24 hr 25 mg PO DAILY Qty: 30 0RF No Action levothyroxine 50 mcg tablet 50 mcg PO QDAY Qty: 90 1RF cimetidine 400 mg tablet 400 mg PO BID Qty: 180 3RF amlodipine 5 mg tablet 5 mg PO DAILY Qty: 90 3RF Eliquis 5 mg tablet 5 mg PO BID Qty: 180 3RF Jardiance 10 mg tablet 10 mg PO DAILY Qty: 90 1RF isosorbide mononitrate 30 mg tablet extended release 24 hr 30 mg PO DAILY Qty: 90 3RF metoprolol succinate 50 mg tablet extended release 24 hr 50 mg PO DAILY Qty: 90 3RF simvastatin 20 mg tablet 20 mg PO QHS Qty: 90 3RF linagliptin 5 mg tablet 5 mg PO DAILY Qty: 90 3RF Primary Care Provider: Jovita Youngblood Referrals: Jovita Youngblood MD [Primary Care Provider] - Danilo Contreras MD [Med Staff - Active Staff] - 1-2 Weeks Activity Restrictions/Additional Instructions: 1. Take the 50 mg metoprolol tablet in the morning/midday. Take the 25 mg, which I prescribed for you prior to bed. Print Language: French Disposition Disposition: Home, Self Care
--- NOTE | 2024-07-23 15:39 | EKG12_ITS ---
Test Reason : DYSP Blood Pressure : */* mmHG Vent. Rate : 83 BPM Atrial Rate : 83 BPM P-R Int : 220 ms QRS Dur : 78 ms QT Int : 410 ms P-R-T Axes : 22 64 -27 degrees QTcB Int : 481 ms Sinus rhythm with marked sinus arrhythmia with 1st degree A-V block with occasional Premature ventricular complexes Nonspecific ST and T wave abnormality Abnormal ECG Confirmed by OLLIE LOO, DARIELA ([id number]), writer editor JORGE OLIVER ([id number]) on 07/25/2024 1:22:38 PM Referred By: EMILIANO Confirmed By: DARIELA LEVIN MD
[2024-07-23 15:49] LABS: Hematocrit 47.4 % (40-54); Hemoglobin 15.7 g/dL (13.0-16.5); Mean Corp Hgb Conc 33.1 g/dL (32-36); Mean Corpuscular Hgb 30.1 pg (27.0-32.0); Mean Platelet Vol. 10.8 fl (6.2-12.0); Platelet Count 274 K/mm3 (150-450); RBC Distribution Width CV 14.2 % (11.6-14.6); RBC Distribution Width SD 47.2 fl (35.1-43.9); Red Blood Count 5.21 M/mm3 (4.6-6.2); White Blood Count 9.2 K/mm3 (4.4-11.0)
[2024-07-23] MEDS: Propofol 200 MG/20 ML Vial IV BOLUS (15:51)
--- NOTE | 2024-07-23 16:05 | RAD_ITS ---
PROCEDURE: CHEST 1 VIEW (PORTABLE) (RADCXPA_P), 07/23/2024 REASON FOR EXAM: DYSPNEA TECHNIQUE: A single portable AP view of the chest was obtained. COMPARISON: 08/26/2022 FINDINGS: Heart: Unremarkable. Mediastinum: Grossly similar contours atherosclerosis.. Lungs/pleura: Grossly similar small/moderate RIGHT pleural effusion. Similar RIGHT basilar and perihilar airspace disease and apical capping since earliest exam of 03/08/2020. Similar mild LEFT basilar airspace disease favorable for atelectasis/scarring.. No visible pneumothorax. Similar chronic RIGHT apical capping. Bones: Suspect demineralization. Lines and support devices: None. Other: None. RAD/Chest 1 View (Portable) IMPRESSION: 1. Grossly similar chronic small/moderate RIGHT pleural effusion and/or pleural thickening with adjacent airspace disease compared with the earliest exam of 03/08/2020. 2. Additional description as above. Reading Location: [id number]
[2024-07-23 16:27] LABS: Anion Gap 13 (5-15); BUN 23 mg/dL (4-19); BUN/Creat Ratio 12.9 RATIO (10-20); Calcium,Total 9.6 mg/dL (7.6-11.0); Carbon Dioxide 21.7 mmol/L (21.0-32.0); Chloride 106 mmol/L (98-108); Creatinine, Serum 1.74 mg/dL (0.70-1.20); EST Glomerular Filtration Rate 40 (>60); Glucose 194 mg/dL (70-99); Potassium 4.9 mmol/L (3.3-5.1); Sodium Level 140 mmol/L (133-145)
[2024-07-23 16:50] LABS: Troponin T High Sensitivity 16 ng/L (<=22)
[2024-07-23 18:06] LABS: Troponin T High Sens 2 HR 14 ng/L (<=22)
[2024-07-23] MEDS: Metoprolol Tartrate 25 MG Tablet PO (19:45)
== END 2024-07-23 19:48 | disposition home or self-care (01) ==
PROVIDERS: Emergency Provider Emergency Medicine; PCP Internal Medicine; Visit Provider Emergency Medicine
DX: I48.92 Unspecified atrial flutter (principal); I13.0 Hypertensive heart and chronic kidney disease with heart failure and stage 1 through stage 4 chronic kidney disease, or unspecified chronic kidney disease; I50.9 Heart failure, unspecified; E11.22 Type 2 diabetes mellitus with diabetic chronic kidney disease; N18.30 Chronic kidney disease, stage 3 unspecified; E78.5 Hyperlipidemia, unspecified; I25.10 Atherosclerotic heart disease of native coronary artery without angina pectoris; E03.9 Hypothyroidism, unspecified; R06.00 Dyspnea, unspecified; Z79.899 Other long term (current) drug therapy; Z86.16 Personal history of COVID-19
CPT/HCPCS: 71045; 80048; 84443; 84484; 85027; 92960; 93005; 99285; A4216

== ENCOUNTER → 2024-08-07 | Outpatient (CLI) | payer MEDICARE, SELFPAY | END | disposition home or self-care (01) | LOC: PSN 10:15 | PROVIDERS: PCP Internal Medicine; Referring Provider Nurse Practitioner Family; Visit Provider Nurse Practitioner Family | DX: I48.0 Paroxysmal atrial fibrillation (principal) | CPT/HCPCS: 93225; 93226 ==

== ENCOUNTER → 2024-09-17 | Outpatient (CLI) | payer MEDICARE, SELFPAY ==
[2024-09-17 12:53] LABS: Absolute Lymphocyte Count 0.96 X10^3/uL (0.83-4.51); Absolute Neutrophil Count 6.3 X10^3/uL (2.0-7.7); Basophil# 0.09 X10^3/uL; Eosinophil# 0.38 X10^3/uL; Eosinophils% 4.2 % (0-5); Hematocrit 44.1 % (40-54); Hemoglobin 14.3 g/dL (13.0-16.5); Lymphocyte # 0.96 X10^3/ul (0.83-4.51); Lymphocyte % 10.7 % (19-41); Mean Corp Hgb Conc 32.4 g/dL (32-36); Mean Corpuscular Hgb 29.6 pg (27.0-32.0); Mean Corpuscular Volume 91.3 fL (80-94); Monocyte# 1.13 X10^3/uL; Monocyte% 12.6 % (0-10); NRBC Flagged by Analyzer 0 % (0-5); Neutrophil # 6.33 X10^3/uL (2.7-7.7); Neutrophil % 70.4 % (47-70); Platelet Count 271 K/mm3 (150-450); RBC Distribution Width CV 14.5 % (11.6-14.6); RBC Distribution Width SD 49.1 fl (35.1-43.9); Red Blood Count 4.83 M/mm3 (4.6-6.2)
[2024-09-17 13:23] LABS: Hemoglobin A1c 7.2 % (<=5.6)
[2024-09-17 14:02] LABS: ALB/GLOB Ratio 1.1 RATIO (0.9-2.4); AST(SGOT) 23 U/L (<=37); Alanine Aminotransfer ALT/SGPT 16 U/L (<=46); Alkaline Phosphatase 171 U/L (40-129); Anion Gap 14 (5-15); BUN 30 mg/dL (4-19); BUN/Creat Ratio 16.3 RATIO (10-20); Calcium,Total 9.4 mg/dL (7.6-11.0); Carbon Dioxide 21.9 mmol/L (21.0-32.0); Chloride 103 mmol/L (98-108); Creatinine, Serum 1.81 mg/dL (0.70-1.20); EST Glomerular Filtration Rate 38 (>60); Globulin 3.5 g/dL (2.2-4.2); Glucose 196 mg/dL (70-99); Protein, Total 7.6 g/dL (5.9-8.4); Sodium Level 139 mmol/L (133-145)
[2024-09-17 14:05] LABS: Free T3 1.9 pg/mL (2.18-3.98); Vitamin D,25 Hydroxy 40.7 ng/mL (30-100)
== END | disposition home or self-care (01) ==
LOC: LAB 12:04
PROVIDERS: PCP Internal Medicine; Referring Provider Internal Medicine; Visit Provider Internal Medicine
DX: E03.9 Hypothyroidism, unspecified (principal); I11.0 Hypertensive heart disease with heart failure; I50.9 Heart failure, unspecified; E11.9 Type 2 diabetes mellitus without complications; E55.9 Vitamin D deficiency, unspecified; E78.00 Pure hypercholesterolemia, unspecified
CPT/HCPCS: 80053; 82306; 83036; 84439; 84443; 84481; 85025

== ENCOUNTER → 2025-02-25 | Outpatient (CLI) | payer MEDICARE, SELFPAY ==
[2025-02-25 11:28] LABS: Free T3 3.4 pg/mL (2.18-3.98)
== END | disposition home or self-care (01) ==
LOC: LAB 09:52
PROVIDERS: PCP Internal Medicine; Referring Provider Internal Medicine; Visit Provider Internal Medicine
DX: E03.9 Hypothyroidism, unspecified (principal); Z79.899 Other long term (current) drug therapy
CPT/HCPCS: 36415; 84439; 84443; 84481

== ENCOUNTER → 2025-02-28 | Outpatient (CLI) | payer MEDICARE, SELFPAY ==
[2025-02-28 12:52] LABS: AST(SGOT) 24 U/L (<=37); Alanine Aminotransfer ALT/SGPT 23 U/L (<=46); Albumin, Serum 4.1 g/dL (3.4-4.8); Alkaline Phosphatase 163 U/L (40-129); Bilirubin, Direct 0.35 mg/dL (0.00-0.30); Globulin 3.4 g/dL (2.2-4.2)
== END | disposition home or self-care (01) ==
LOC: LAB 11:26
PROVIDERS: PCP Internal Medicine; Referring Provider Internal Medicine Cardiovascular Disease; Visit Provider Internal Medicine Cardiovascular Disease
DX: Z79.899 Other long term (current) drug therapy (principal)
CPT/HCPCS: 36415; 80076